=== PATIENT | male | born 1965 | race Caucasian/White ===

== ENCOUNTER 2024-03-17 11:44 | Outpatient (AMB) | payer OTHER, SELFPAY ==
--- OUTSIDE RECORDS SUMMARY | 2024-03-17 11:46 | XMS_ITS ---
Author Name [facility] Organization Unknown History of Medication Use Medication Directions Dispensed Refills Start Date End Date Stat us methocarbamol (ROBAXIN) 500 MG tablet Take 1 tablet (500 mg total) by mouth 3 (three) times a day as needed for muscle spasms (may cause drowsiness). 06/19/2022 aborted OMEprazole (PriLOSEC) 20 MG capsule Take by mouth. 06/19/2022 aborted famotidine (PEPCID) 20 MG tablet Take by mouth. 06/19/2022 aborted meloxicam (MOBIC) 15 MG tablet Take by mouth. 06/19/2022 aborted testosterone (ANDROGEL) 20.25 mg/pump (1.62%) transdermal gel testosterone 20.25 mg/1.25 gram per pump act.(1.62 %) transdermal gel 06/19/2022 aborted rosuvastatin (CRESTOR) 10 MG tablet TAKE 1 TABLET BY MOUTH EVERY DAY 06/19/2022 active methylPREDNISolone (MEDROL DOSEPAK) 4 MG tablet follow package directions 11/28/2022 active valsartan-hydroCHLOROth iazide (DIOVAN-HCT) 160-25 MG per tablet Take 1 tablet by mouth daily. 06/19/2022 active Problems Problem Status Onset Date Problem Type Date of Resolution Source Essential familial hypercholesterolemia active 2022-06-10 ProblemAct [facility] Hypertension active 2022-06-10 ProblemAct [facility] Lumbar pain active 2022-06-10 ProblemAct [facility] Dyspnea active 2022-06-10 ProblemAct [facility] Stiffness of finger joint of left hand active 2022-11-12 ProblemAct [facility] Hyperglycemia active 2022-06-10 ProblemAct [facility] Erectile dysfunction active 2022-06-10 ProblemAct [facility] Dislocation of finger active 2022-11-12 ProblemAct [facility] Other cervical disc degeneration at C4-C5 level active 2018-04-13 ProblemAct [facility] Dislocation of finger, sequela active EncounterDiagnosisAct [facility] Hypogonadism, male active 2022-06-10 ProblemAct [facility] Immunizations Vaccine Date Source Lot Number Status Influenza Inactivated Lai valent Preservative Free IM 03/01/2016 [facility] [id number] completed Influenza Inactivated Lai valent Preservative Free IM 02/06/2021 [facility] [id number] completed Influenza Inactivated Lai valent Preservative Free IM 01/13/2020 [facility] completed Influenza, Unspecified 2012 [facility] co mpleted
--- NOTE | 2024-03-17 12:49 | A.OFFPC_ITS ---
Vital Signs 03/17/24 13:06 Height 5 ft 7 in Weight 178 lb 6 oz BMI 27.9 BP 128/70 Blood Pressure Location Rt brachial Position Sitting Respiration 16 Pulse 93 Pulse Source Pulse Oximeter Pulse Oximetry (%) 99 Oxygen Delivery Method Room Air Intake Visit Reasons: [facility]/ Est Care Intake Note: establish care Allergies Penicillins Allergy (Intermediate, Verified 03/17/24 12:51) Unknown Medication List - Last Reconciled 03/17/24 by Evan Livingston MD rosuvastatin mg PO ONCE valsartan-hydrochlorothiazide 160-25 mg tabs PO DAILY Tobacco use date assessed: 03/17/24 Dental Screening Dental Screen Date: 03/17/24 Did you have a dental visit in the last 12 months?: Yes Did you have a dental problem in the last 6 months where you did not have access to dental care?: No Was dental information given to patient?: Patient has dentist HPI [facility]/ Est [facility] HPI Details New Patient? ?? Prior PCP:?[facility] [place]. Last office visit/CPE:? 2 yrs Acute issue(s):? Abdominal discomfort worst at LLQ & Inguinal region. Some changes in BMs. No bloodin stools. Changes in appetite. Drinks lots of coffee & EtOH. C/o sweating - daytime not night sweats Back pain Has done PT. L 5th finger dislocation & some deformity. ?? PMHx:? Back pain & Disc injury, Low T. HTN, HLD SurgHx:? FHx:? SocHx: Quit cigs 25 yrs ago. EtOH bout 5 dr a day. , [facility] Medical History (Updated 03/17/24 @ 14:09 by Bo Luu) Dislocated finger Testicular pain, left Breathing problem Sciatic leg pain Arthritis Back injury Low testosterone High blood pressure High blood cholesterol Surgical History (Updated 03/17/24 @ 13:01 by Barry Ariza CMA) History of vasectomy History of hernia repair Family History (Updated 03/17/24 @ 13:05 by Barry Ariza CMA) Father High blood pressure High cholesterol Prostate cancer Mother High blood pressure Brother High blood pressure High cholesterol Sister High blood pressure High cholesterol Social History (Updated 03/17/24 @ 13:05 by Barry Ariza CMA) Housing: House Patient Tobacco Use Status: Never used Tobacco e-Cigarette/Vaping Use: Never Used Second Hand Smoke Exposure: No Substance Use Type: Marijuana service: No Current occupational status: retired Current occupational exposures/hazards: No Cognitive needs: No Hearing needs: No Vision needs: Yes Questionnaire PHQ-9 Over the last 2 weeks, how often have you been bothered by any of the following problems? 1. Little interest or pleasure in doing things: several days 2. Feeling down, depressed, or hopeless: not at all 3. Trouble falling or staying asleep, or sleeping too much: more than half the days 4. Feeling tired or having little energy: several days 5. Poor appetite or overeating: more than half the days 6. Feeling bad about yourself - or that you are a failure or have let yourself or your family down: not at all 7. Trouble concentrating on things, such as reading the newspaper or watching television: not at all 8. Moving or speaking so slowly that other people could have noticed. Or the opposite - being so fidgety or restless that you have been moving around a lot more than usual: not at all 9. Thoughts that you would be better off or of hurting yourself in some way: not at all Total score: 6 Depression Screening Interpretation: Positive Depression Screening Done: Yes 72811 - PHQ-9 Billing: Yes Source: Developed by Drs. Ricky Baxter, Mary Jo Ascencio, Griffin Timmons and colleagues, with an educational moe from [employer]. Thrive Questionnaire Date Thrive assessed: 03/17/24 I am a: Patient What is your living situation today?: I have a steady place to live Within the past 12 months, did the food you bought not last and you didn't have the money to get more?: Never true Within the past 12 months, did you worry whether your food would run out before you got money to buy more?: Never true Do you have trouble paying for medicines?: No Do you have trouble getting transportation to medical appointments?: No Do you have trouble paying your heating and electricity bill?: No Do you have trouble taking care of your child, family member or friend?: No Do you have trouble with day-to-day activities such as bathing, preparing meals, shopping, managing finances, etc.?: No Are you currently unemployed and looking for a job?: No Are you interested in more education?: No Please select the resources that you would like help with: None Currently or been in a relationship where the following occur: No concerns reported THRIVE Score: 0 AUDIT C Alcohol Use Questionnaire (AUDIT-C) 1. How often do you have a drink containing alcohol?: 4 or more times a week 2. How many drinks containing alcohol do you have on a typical day when you are drinking?: 5 or 6 3. How often do you have six or more drinks on one occasion?: Weekly Total Score: 9 MARIA L-7 AMB Questionnaire MARIA L-7 Date MARIA L - 7 assessed: 03/17/24 Feeling nervous, anxious, or on edge: 0 = Not at all Not being able to stop or control worryin = Not at all Worrying too much about different things: 1 = Several days Trouble relaxin = Not at all Being so restless that it is hard to sit still: 0 = Not at all Becoming easily annoyed or irritable: 0 = Not at all Feeling afraid as if something awful might happen: 0 = Not at all Total MARIA L-7 score (0-4 normal; 5-9 mild; 10-14 moderate; 15-21 severe): 1 Source: Developed by Drs. Ricky Baxter, Mary Jo Ascencio, Griffin Timmons and colleagues, with an educational moe from [employer]. MARIA L-7 Assessment Billing MARIA L-7 Assessment Tool: MARIA L-7 Assessment 40376 Review of Systems Const Denies chills, Denies fatigue, Denies fever(s), Denies headache(s) and Denies weakness ENT Denies dizziness and Denies headache(s) Card Denies chest pain, Denies lightheadedness, Denies dyspnea and Denies other (Palpitations) Resp Denies cough, Denies dyspnea, Denies wheezing and Denies other ( shortness of breath) Musc Denies numbness and Denies tingling Neuro Denies dizziness, Denies headache(s), Denies numbness, Denies tingling, Denies paresthesias and Denies weakness Psych Denies anxiety and Denies depression Endo Denies fatigue Aller/Immun Denies wheezing Physical exam (Primary Care) Vital Signs: Last Vital Signs Pulse 93 03/17/24 13:06 Resp 16 03/17/24 13:06 BP 128/70 03/17/24 13:06 Pulse Ox 99 03/17/24 13:06 Oxygen Delivery Method Room Air 03/17/24 13:06 BMI result Body Mass Index 27.9 Tobacco/Smoking Status: Tobacco use Status Tobacco use date assessed 03/17/24 03/17/24 13:08 Patient Tobacco Use Status Never used Tobacco 03/17/24 13:08 e-Cigarette/Vaping Use Never Used 03/17/24 13:08 PHQ-9: PHQ-9 Score PHQ-9: Total score 6 03/17/24 13:11 Depression Screening Interpretation: Positive Thrive Assessment: Date of Thrive Assessment Date Thrive assessed 03/17/24 03/17/24 13:08 Currently or been in a relationship where the following occur: No concerns reported Const General: no acute distress and well developed Nutritional Appearance: well nourished Orientation/consciousness: patient oriented x3 HENMT Head: Yes normocephalic and Yes atraumatic Eyes General: appearance normal, both eyes and all related structures Pupils: Equal, round and reactive pupils present EOM: EOMs intact bilaterally Resp Effort & Inspection: normal respiratory effort Auscultation: clear to auscultation bilaterally Cardio Rate: regular rate Rhythm: regular rhythm Heart sounds: S1 normal heart sound present, S2 normal heart sound present, no gallops, no murmurs and no rubs Neuro General: patient oriented x3 and gait normal Cranial nerves: Yes Equal, round and reactive pupils present Psych Affect: normal affect Coding Level of Care Code New Pt Level 4 (35868) Diagnoses Abdominal discomfort R10.9 Back pain M54.9 High blood cholesterol E78.00 High blood pressure I10 Alcohol use F10.90 Excessive sweating R61 Dislocated finger S63.259A Hand pain M79.643 Laboratory exam ordered as part of routine general medical examination Z00.00 Additional Codes MARIA L-7 Assessment Billing - MARIA L-7 Assessment Tool: MARIA L-7 Assessment 02661 ([id number]) PHQ-9 - 93805 - PHQ-9 Billing: Yes ([id number]) Assessment & Plan Assessment & Plan (1) Abdominal discomfort: Code(s): R10.9 - Unspecified abdominal pain Category: Medical Plan: Advised?patient?to?increase?water?intake?and?decrease?alcohol?intake Check?labs He?is?referred?to?Gastroenterology (2) Back pain: Code(s): M54.9 - Dorsalgia, unspecified Category: Medical Plan: Longstanding?back?pain?and?patient?notes?he?has?had?disc?injuries?and?undergone? physical?therapy?in?the?past He?says?he?has?had?imaging?including?MRI?studies?but?not?within?the?l ast?few?years Will?request?prior?records (3) High blood cholesterol: Code(s): E78.00 - Pure hypercholesterolemia, unspecified Category: Medical Plan: Check?labs (4) High blood pressure: Code(s): I10 - Essential (primary) hypertension Category: Medical Plan: Blood?pressure?appears?controlled Continue?current?medication (5) Alcohol use: Code(s): F10.90 - Alcohol use, unspecified, uncomplicated Category: Social Hx Plan: Patient?is?written?about?5?drinks?per?day Encouraged?weaning?cessation Offered?referral?to?comprehensive?Care?Clinic.??Gonzalez l?readdress?this?at?a?subsequent?visit (6) Excessive sweating: Code(s): R61 - Generalized hyperhidrosis Category: Medical Plan: Check?labs?including?thyroid?levels?and?testosterone As?above,?advised?weaning?and?cessation?of?alcohol (7) Dislocated finger: Code(s): S63.259A - Unspecified dislocation of unspecified finger, initial encounter Category: Medical Plan: Patient?has?deviated?finger?and?also?has?complaints?of?painful?palm?or?tendons Will?send?a?script?for?diclofenac?and?advised?heat May?need?imaging?referral?to?his?specialist??if?it?continues?to?worsen (8) Hand pain: Code(s): M79.643 - Pain in unspecified hand Category: Medical Plan: Appears?to?have?contractures?of?tendons Ice?heat?and?diclofenac?gel May?need?referral?imaging (9) Laboratory exam ordered as part of routine general medical examination: Code(s): Z00.00 - Encounter for general adult medical examination without abnormal findings Category: Medical Plan: Check?labs Orders: Orders Comprehensive [place]. Panel Fast Today Z00.00 - Encounter for general adult medical examination without abnormal findings Lipid Panel Today Z00.00 - Encounter for general adult medical examination without abnormal findings TSH reflex Free T4 Today Z00.00 - Encounter for general adult medical examination without abnormal findings UA and rflx microscopic Today Z00.00 - Encounter for general adult medical examination without abnormal findings Testosterone, Free/Total Today F10.90 - Alcohol use, unspecified, uncomplicated, Z00.00 - Encounter for general adult medical examination without abnormal findings Erythrocyte Sedimentation Rate Today M54.9 - Dorsalgia, unspecified Complete Blood Count Auto Diff Today Z00.00 - Encounter for general adult medical examination without abnormal findings Microalbumin, Random (w Creat) Today I10 - Essential (primary) hypertension Prostate Specific Antigen Scr Today Z12.5 - Encounter for screening for malignant neoplasm of prostate Vitamin B12 and Folate Today E53.8 - Deficiency of other specified B group vitamins CRP High Sensitivity Today M54.9 - Dorsalgia, unspecified T Spot TB Today R61 - Generalized hyperhidrosis Referrals Gastroenterology Referral R10.9 - Unspecified abdominal pain, Z12.11 - Encounter for screening for malignant neoplasm of colon Medications: New diclofenac sodium 1% (Aleve (diclofenac)) apply to single elbow, wrist or hand; for hand includes palm/fingers/back of hand 2 grams topical BID 60 days 100 grams 2RF
[2024-03-17 13:06] VITALS: BP 128/70; PULSE 93; RESP 16; O2SAT 99; BMI 27.9
== END 2024-03-17 14:09 | disposition home or self-care (01) ==
PROVIDERS: PCP Family Medicine; Visit Provider Family Medicine
DX: R10.9 Unspecified abdominal pain (principal); M54.9 Dorsalgia, unspecified; E78.00 Pure hypercholesterolemia, unspecified; I10 Essential (primary) hypertension; F10.90 Alcohol use, unspecified, uncomplicated; R61 Generalized hyperhidrosis; S63.259A Unspecified dislocation of unspecified finger, initial encounter; M79.643 Pain in unspecified hand; Z00.00 Encounter for general adult medical examination without abnormal findings

== ENCOUNTER → 2024-03-17 11:44 | Outpatient (BNVA) | payer OTHER, SELFPAY | PROVIDERS: Visit Provider Family Medicine | DX: R10.9 Unspecified abdominal pain (principal); M54.9 Dorsalgia, unspecified; E78.00 Pure hypercholesterolemia, unspecified; I10 Essential (primary) hypertension; F10.90 Alcohol use, unspecified, uncomplicated; R61 Generalized hyperhidrosis; S63.257A Unspecified dislocation of left little finger, initial encounter; M79.643 Pain in unspecified hand | CPT/HCPCS: 96127 ==

== ENCOUNTER 2024-04-02 08:06 | Outpatient (REF) | payer OTHER, SELFPAY ==
[2024-04-02 10:58] LABS: MANUAL DIFF FLAG NO
[2024-04-02 11:09] LABS: Basophils Absolute Auto 0.1 X10*3/uL (0.0-0.2); Basophils Percent Auto 0.7 % (0-2); Eosinophils Absolute Auto 0.1 X10*3/uL (0.0-0.4); Eosinophils Percent Auto 1.3 % (0-4); Hematocrit 42.6 % (42.0-52.0); Hemoglobin 14.6 g/dl (14.0-18.0); Imm Gran Abs Auto 0.09 X10*3/uL (0.00-0.03); Imm Gran Pct Auto 1.2 % (0.0-0.4); Lymphocytes Absolute Auto 1.4 X10*3/uL (1.2-4.9); Lymphocytes Percent Auto 19.1 % (20-40); Mean Corpuscular HGB Conc 34.3 g/dl (31.0-36.0); Mean Corpuscular Hemoglobin 32.4 pg (27.0-33.0); Mean Corpuscular Volume 94.5 fL (80.0-98.0); Mean Platelet Volume 9.8 fL (9.4-12.4); Monocytes Absolute Auto 0.5 X10*3/uL (0.1-1.2); Monocytes Percent Auto 6.1 % (2-11); Neutrophils Absolute Auto 5.4 x10*3/uL (2.0-8.3); Neutrophils Percent Auto 71.6 % (45-73); Platelet Count 274 X10*3/uL (160-400); Red Blood Count 4.51 X10*6/uL (4.60-5.80); White Blood Count 7.5 X10*3/uL (4.8-10.8)
[2024-04-02 11:13] LABS: Appearance Urine Clear; Color Urine Yellow; Glucose Urine UA Negative (Negative); Leukocyte Esterase Urine Negative (Negative); Nitrite Urine Negative (Negative); PH >= 9.0 (5.0-9.0); Urine Blood Negative (Negative); Urine Ketones Negative (Negative); Urine Protein Trace mg/dL (Neg-Trace)
[2024-04-02 11:47] LABS: Alanine Aminotransferase 21 U/L (0-40); Albumin Level 4.4 g/dL (3.5-5.0); Alkaline Phosphatase 66 U/L (39-117); Anion Gap 12 (12-20); Aspartate Amino Transferase 26 U/L (5-37); Bilirubin Total 0.4 mg/dL (0.0-1.0); Blood Urea Nitrogen 8 mg/dL (9-16); Carbon Dioxide 29 mmol/L (22-29); Chloride 102 mmol/L (96-108); Cholesterol 237 mg/dL (<200); Estimated Glomerular Filt Rate > 60; Glucose Fasting 99 mg/dL (60-99); HDL Cholesterol 42 mg/dL (>40); LDL Cholesterol Calculated 135 mg/dL (<100); Potassium 4.1 mmol/L (3.3-5.1); Sodium 139 mmol/L (135-145); Total Protein 7.1 g/dL (6.5-8.0); Triglycerides 301 mg/dL (<150)
[2024-04-02 11:52] LABS: Erythrocyte Sedimentation Rate 10 MM/HR (0-15)
[2024-04-02 11:53] LABS: Creatinine Urine 165.23 mg/dL; Microalbum/Creatinine Ratio Ur 4.8 ug/mg cr (<30)
[2024-04-02 11:57] LABS: TSH reflex Free T4 1.88 uIU/mL (0.32-4.0)
[2024-04-02 11:59] LABS: Folate 9.9 ng/mL (> or = 4.0); Prostate Specific Antigen Scr 1.09 ng/mL (<0.05-4.0); Vitamin B12 234 pg/mL (200-900)
[2024-04-05 23:28] LABS: TS Negative Control Passed; TS Panel A 0; TS Panel B 0; TS Positive Control Passed; TSpotTB Negative (Negative)
[2024-04-08 17:14] LABS: Testosterone, Free 72.1 pg/mL (35.0-155.0); Testosterone, Total 519 ng/dL (250-1100)
== END 2024-04-02 08:07 | disposition home or self-care (01) ==
LOC: HO.WFDLDS 08:06
PROVIDERS: Visit Provider Family Medicine
DX: Z00.00 Encounter for general adult medical examination without abnormal findings (principal); M54.9 Dorsalgia, unspecified; Z12.5 Encounter for screening for malignant neoplasm of prostate; E53.8 Deficiency of other specified B group vitamins; F10.90 Alcohol use, unspecified, uncomplicated; R61 Generalized hyperhidrosis; I10 Essential (primary) hypertension
CPT/HCPCS: 36415; 80053; 80061; 81003; 82043; 82570; 82607; 82746; 84153; 84402; 84403; 84443; 85025; 85652; 86141; 86481

== ENCOUNTER 2024-05-25 11:52 | Outpatient (AMB) | payer OTHER, SELFPAY ==
--- NOTE | 2024-05-25 12:37 | A.OFFPC_ITS ---
Vital Signs 05/25/24 12:44 Height 5 ft 7 in Weight 178 lb 8 oz BMI 28.0 BP 148/86 H Blood Pressure Location Rt brachial Position Sitting Respiration 16 Pulse 102 H Pulse Source Pulse Oximeter Temp 98.5 F Temp Source Oral Pulse Oximetry (%) 99 Oxygen Delivery Method Room Air Intake Visit Reasons: cpe fu lab and health maintenance Intake Note: CPE Allergies Penicillins Allergy (Intermediate, Verified 05/25/24 12:44) Unknown Medication List - Last Reconciled 05/25/24 by Evan Livignston MD diclofenac sodium 1% (Aleve (diclofenac)) 2 grams topical BID 60 days rosuvastatin mg PO ONCE valsartan-hydrochlorothiazide 160-25 mg tabs PO DAILY Tobacco use date assessed: 05/25/24 Dental Screening Dental Screen Date: 03/17/24 Did you have a dental visit in the last 12 months?: Yes Did you have a dental problem in the last 6 months where you did not have access to dental care?: No Was dental information given to patient?: No HPI cpe fu lab and health maintenance HPI Details 59 y/o male presents for a CPE with f/u labs and health maintenance. Labs drawn 04/02/24. Reviewed labs with pt. RBC mildly low at 4.51. Triglycerides 301. TC 237. LDL 135. HDL 42. PSA 1.09. Blood pressure today 148/86, 102p. He is on valsartan-HCTZ 160-25mg daily. Reports ongoing back pain. Has had numerous MRIs/physical therapy. Reports ongoing abd. discomfort. HPI Comments History of Present Illness Details Documentation assistance for Evan Livingsotn MD, was provided by Bo Luu, Human Relations Manager on 05/25/2024 at 1:03 PM EST. I, Dr. Livingston, have read, observed, and verified documentation. [facility] Medical History (Updated 05/25/24 @ 13:30 by Evan Livingston MD) Dislocated finger Testicular pain, left Breathing problem Sciatic leg pain Arthritis Back injury Low testosterone High blood pressure High blood cholesterol Surgical History (Updated 03/17/24 @ 13:01 by Barry Ariza CMA) History of vasectomy History of hernia repair Family History (Updated 03/17/24 @ 13:05 by Barry Ariza CMA) Father High blood pressure High cholesterol Prostate cancer Mother High blood pressure Brother High blood pressure High cholesterol Sister High blood pressure High cholesterol Social History (Updated 03/17/24 @ 13:05 by Barry Ariza [facility]) Housing: House Patient Tobacco Use Status: Never used Tobacco e-Cigarette/Vaping Use: Never Used Second Hand Smoke Exposure: No Substance Use Type: Marijuana service: No Current occupational status: retired Current occupational exposures/hazards: No Cognitive needs: No Hearing needs: No Vision needs: Yes Questionnaire PHQ-9 Over the last 2 weeks, how often have you been bothered by any of the following problems? 1. Little interest or pleasure in doing things: not at all 2. Feeling down, depressed, or hopeless: not at all 3. Trouble falling or staying asleep, or sleeping too much: more than half the days 4. Feeling tired or having little energy: more than half the days 5. Poor appetite or overeating: nearly every day 6. Feeling bad about yourself - or that you are a failure or have let yourself or your family down: not at all 7. Trouble concentrating on things, such as reading the newspaper or watching television: not at all 8. Moving or speaking so slowly that other people could have noticed. Or the opposite - being so fidgety or restless that you have been moving around a lot more than usual: not at all 9. Thoughts that you would be better off or of hurting yourself in some way: not at all Total score: 7 Depression Screening Interpretation: Positive Depression Screening Done: Yes 59177 - PHQ-9 Billing: Yes Source: Developed by Drs. Ricky Baxter, Mary Jo Ascencio, Griffin Timmons and colleagues, with an educational moe from [employer]. Thrive Questionnaire Date Thrive assessed: 05/25/24 I am a: Patient What is your living situation today?: I have a steady place to live Within the past 12 months, did the food you bought not last and you didn't have the money to get more?: Never true Within the past 12 months, did you worry whether your food would run out before you got money to buy more?: Never true Do you have trouble paying for medicines?: No Do you have trouble getting transportation to medical appointments?: No Do you have trouble paying your heating and electricity bill?: No Do you have trouble taking care of your child, family member or friend?: No Do you have trouble with day-to-day activities such as bathing, preparing meals, shopping, managing finances, etc.?: No Are you currently unemployed and looking for a job?: No Are you interested in more education?: No Please select the resources that you would like help with: None Currently or been in a relationship where the following occur: No concerns reported THRIVE Score: 0 AUDIT C Alcohol Use Questionnaire (AUDIT-C) 1. How often do you have a drink containing alcohol?: 4 or more times a week 2. How many drinks containing alcohol do you have on a typical day when you are drinking?: 3 or 4 3. How often do you have six or more drinks on one occasion?: Weekly Total Score: 8 Score Reviewed/Action Taken: Yes MARIA L-7 AMB Questionnaire MARIA L-7 Date MARIA L - 7 assessed: 05/25/24 Feeling nervous, anxious, or on edge: 0 = Not at all Not being able to stop or control worryin = Not at all Worrying too much about different things: 0 = Not at all Trouble relaxin = Not at all Being so restless that it is hard to sit still: 0 = Not at all Becoming easily annoyed or irritable: 0 = Not at all Feeling afraid as if something awful might happen: 0 = Not at all Total MARIA L-7 score (0-4 normal; 5-9 mild; 10-14 moderate; 15-21 severe): 0 Source: Developed by Drs. Ricky Baxter, Mary Jo Ascencio, Griffin Timmons and colleagues, with an educational moe from [employer]. MARIA L-7 Assessment Billing MARIA L-7 Assessment Tool: MARIA L-7 Assessment 79464 Review of Systems Const Denies chills, Denies fatigue, Denies fever(s), Denies headache(s) and Denies weakness Eyes Denies change in vision ENT Denies dizziness, Denies headache(s), Denies hearing loss, Denies nasal congestion, Denies sinus pain, Denies sinus pressure and Denies sore throat Card Denies chest pain, Denies lightheadedness, Denies dyspnea and Denies other (palpitations) Resp Denies cough, Denies dyspnea and Denies wheezing GI Reports abdominal pain, Denies melena, Denies hematochezia, Denies change in bowel habits, Denies dyspepsia and Denies nausea Denies hematuria and Denies dysuria Musc Denies abnormal gait, Denies myalgias, Denies arthralgias, Denies numbness and Denies tingling Skin/Breast Denies rash, Denies unusual bruising and Denies wounds Neuro Denies abnormal gait, Denies dizziness, Denies headache(s), Denies memory loss, Denies numbness, Denies Sensory deficit (Neuro), Denies tingling and Denies weakness Psych Denies anxiety, Denies depression and Denies memory loss Endo Denies cold intolerance, Denies fatigue, Denies heat intolerance, Denies polydipsia and Denies polyuria Raffy/Lymph Denies easy bleeding and Denies easy bruising Aller/Immun Denies wheezing Physical exam (Primary Care) Vital Signs: Last Vital Signs Temp 98.5 F 05/25/24 12:44 Pulse 102 H 05/25/24 12:44 Resp 16 05/25/24 12:44 BP 148/86 H 05/25/24 12:44 Pulse Ox 99 05/25/24 12:44 Oxygen Delivery Method Room Air 05/25/24 12:44 BMI result Body Mass Index 28.0 Tobacco/Smoking Status: Tobacco use Status Tobacco use date assessed 05/25/24 05/25/24 12:45 Patient Tobacco Use Status Never used Tobacco 05/25/24 12:41 e-Cigarette/Vaping Use Never Used 05/25/24 12:41 PHQ-9: PHQ-9 Score PHQ-9: Total score 7 05/25/24 12:41 Depression Screening Interpretation: Positive Thrive Assessment: Date of Thrive Assessment Date Thrive assessed 05/25/24 05/25/24 12:41 Currently or been in a relationship where the following occur: No concerns reported Const General: no acute distress, well developed, alert and awake Nutritional Appearance: well nourished Orientation/consciousness: patient oriented x3 HENMT Head: Yes normocephalic and Yes atraumatic Ears: hearing grossly normal bilaterally and TM's normal bilaterally General nose exam: Normal external nose present and Normal nares present Mouth: Normal oral and palatal mucosa present and moist mucous membranes Teeth and gingiva: dentition normal Throat: Yes posterior oropharynx normal Eyes General: appearance normal, both eyes and all related structures Pupils: Equal, round and reactive pupils present and Pupil accommodation reflex normal EOM: EOMs intact bilaterally Neck Neck: Yes normal visual inspection, Yes no lymphadenopathy and Yes trachea midline Thyroid: Thyroid normal Carotids: no bruits Lymphatic: no lymphadenopathy noted Chest Chest palpation & inspection: normal inspection of the chest Resp Effort & Inspection: normal respiratory effort Auscultation: clear to auscultation bilaterally Cardio Rate: regular rate Rhythm: regular rhythm Heart sounds: S1 normal heart sound present, S2 normal heart sound present, no gallops, no murmurs and no rubs Bruits: no abdominal aortic bruits and no carotid bruits GI Palpation (GI): No Abdominal aortic bruit present, Soft to palpation, nontender, No hepatosplenomegaly present and No Rebound tenderness present Auscultation: normal bowel sounds General: Yes no CVA tenderness Back/Spine/Pelvis Back: no CVA tenderness Cervical Spine: cervical ROM normal and No Cervical spine tenderness Thoracic/Lumbar Spine: thoraco-lumbar ROM normal, No pain with thoraco-lumbar ROM, No thoracic spinal tenderness and No lumbar spinal tenderness Skin Lesions: no lesions Rashes: no rashes Trauma: no lacerations or abrasions Wounds: no wounds Nails: normal Neuro General: patient oriented x3 Cranial nerves: Yes Equal, round and reactive pupils present Cognition (Neuro): normal cognition Gait exam (Neuro): Normal gait present Motor exam (neuro): 5/5 motor strength present throughout Sensory Exam: No Sensory deficit (Neuro) Deep tendon reflexes (DTR's): Right patellar reflex intensity grade: 2+ and Left patellar reflex intensity grade: 2+ Extrem General: Yes normal to inspection and No edema Psych Appearance: grossly normal Affect: normal affect Attitude: cooperative Thought process: Normal thought process present Coding Level of Care Code Est Pt Level 3 (50826) Est Pt Prev Care 40-64y(09915) Diagnoses Adult general medical exam Z00.00 Hyperlipidemia E78.5 High blood pressure I10 Back pain M54.9 Tachycardia R00.0 Abdominal discomfort R10.9 Screening for prostate cancer Z12.5 Screening for colon cancer Z12.11 Additional Codes MARIA L-7 Assessment Billing - MARIA L-7 Assessment Tool: MARIA L-7 Assessment 12666 ([id number]) PHQ-9 - 77816 - PHQ-9 Billing: Yes ([id number]) Assessment & Plan Assessment & Plan (1) Adult general medical exam: Code(s): Z00.00 - Encounter for general adult medical examination without abnormal findings Category: Medical Plan: 59-year-old?male?presents?for?complete?physical?exam Encouraged?healthy?diet?with?active?lifestyle?and?plenty?exercise (2) Hyperlipidemia: Code(s): E78.5 - Hyperlipidemia, unspecified Category: Medical Plan: Triglycerides?and?LDL?cholesterol?are?too?high. 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 Will?have?him?work?on?diet?low?in?saturated?fats?and?cholesterol and?repeat?labs?prior?to?next?visit. If?labs?are?still?significantly?elevated,?will?get?him?back?rosuvastatin. (3) High blood pressure: Code(s): I10 - Essential (primary) hypertension Category: Medical Plan: Blood?pressure?is?elevated?today.??Goal?is?less?than?140/90 Blood?pressure?was?controlled?at?prior?visits?about?2?months?ago. Continue?current?medications. Watch?salt/sodium Regular?exercise If?blood?pressure?is?still?elevated?at?next?visit,?will?adjust?his?medications (4) Back pain: Code(s): M54.9 - Dorsalgia, unspecified Category: Medical Plan: Ongoing?back?pain. Patient?has?had?numerous?MRIs?and?physical?therapy Will?refer?him?to?physiatry (5) Tachycardia: Code(s): R00.0 - Tachycardia, unspecified Category: Medical Plan: Mild?tachycardia?and?mildly?elevated?blood?pressure. As?we? discussed?at?last?visit,?patient?does?not?drink?much?water?and?is?working?on?thi s. EKG: ?Normal?sinus?rhythm?with?sinus?arrhythmia.??Eighty?b.p.m.,?normal?axis,?no?hype rtrophy,?no?ST-T-wave?changes. Heart?rate?is?elevated?when?upright; likely?mildly?orthostatic. Increase?water?intake. (6) Abdominal discomfort: Code(s): R10.9 - Unspecified abdominal pain Category: Medical Plan: Still?has?ongoing?abdominal?discomfort. Now?has?appointment?with?Gastroenterology Still?working?on?increasing?water?intake?and?I?encouraged?this?again.??Also?enco uraged?weaning?and?cessation?of?alcohol?use We?discussed?soluble?fiber?supplement Follow-up?with?GI (7) Screening for prostate cancer: Code(s): Z12.5 - Encounter for screening for malignant neoplasm of prostate Category: Medical Plan: PSA?was?within?normal?limits Will?continue?annual?screening (8) Screening for colon cancer: Code(s): Z12.11 - Encounter for screening for malignant neoplasm of colon Category: Medical Plan: Patient?has?appointment?with?Gastroenterology Orders: Orders AMB EKG-In Office Today R00.0 - Tachycardia, unspecified Lipid Panel Today E78.5 - Hyperlipidemia, unspecified, Z00.00 - Encounter for general adult medical examination without abnormal findings Comprehensive [place]. Panel Fast Today E78.5 - Hyperlipidemia, unspecified, Z00.00 - Encounter for general adult medical examination without abnormal findin gs
[2024-05-25 12:44] VITALS: BP 148/86; PULSE 102; RESP 16; TEMP 36.9; O2SAT 99; BMI 28.0
--- OUTSIDE RECORDS SUMMARY | 2024-05-25 14:32 | XMS_ITS | Encounter Summary ---
Author Organization [facility] Address [address] [place] [address] Care Team Providers Care Tracer Bullet Section Supervisor Name Role Phone Supriya Asif Primary Care Provider [phone] Reason for Visit * Reason Comments Medication Refill Encounter Details Date Type Department Care Team ([facility] st Contact Info) Description 05/20/2024 Refill [facility] Department of Internal Medicine [place] [address] [place] [address] Supriya Asif PA [address] [place] [id number] Pure hypercholesterolemia Social History Tobacco Use Types Packs/Day Years Used Date Smoking Tobacco: Former Cigarettes 1 13 Smokeless Tobacco: Never Alcohol Use Standard Drinks/Week Comments Yes 21 (1 standard drink = 0.6 oz pu re alcohol) Sex and Gender Information Value Date Recorded Sex Assigned at Not on file Gender Identity Not on file Sexual Orientation Not on file documented as of this encounter Miscellaneous Notes * Telephone Encounter - Delmy Villaseñor LPN - 05/20/2024 10:16 AM EST Patient is missing a follow up appointment OR needs appropriate labs for prescription renewal. documented in this encounter Plan of Treatment Not on file documented as of this encounter Visit Diagnoses Diagnosis Pure hypercholesterolemia documented in this encounter Care Teams Tracer Bullet Section Supervisor Relationship Specialty Start Date End Date Supriya Asif PA [address] [place] [phone] PCP - General documented as of this encounter
--- OUTSIDE RECORDS SUMMARY | 2024-05-25 14:32 | XMS_ITS | Clinical Summary ---
Author Organization [facility] Address [address] [place] [address] Care Team Providers Care Sweeper Brush Maker Machine Name Role Phone Renzo Yeh MD Primary Care Provider Unavail able Immunizations Name Administration Dates Next Due Covid-19 (Pfizer) Dilution Required 07/14/2020,0 06/23/2020 Social History Tobacco Use Types Packs/Day Years Used Date Smoking Tobacco: Never Assessed Sex and Gender Information Value Date Recorded Sex Assigned at Male 04/11/2020 6:19 AM EST Gender Identity Not on file Sexual Orientation Not on file Job Start Date Occupation Industry Not on file Not on file Not on file Plan of Treatment Health Maintenance Due Date Last Done Comments Hepatitis B Vaccines (1 of 3 - 3-dose series) 1966 Hepatitis C Screening 1966 Depression Screening 1978 Preventative Health Evaluation 01/13/1984 DTap / Tdap / Td (1 - Tdap) 1985 Colon Cancer Screening (Colonoscopy) 2011 Shingrix-Zoster Vaccine (1 o f 2) 01/13/2016 COVID-19 Vaccine (2023-2 5 season) 2023 07/14/2020, 06/23/2020 Influenza Vaccine (#1) 2023 Pneumococcal Vaccine Aged Out No long er eligible based on patient's age to complete this topic RSV Ped < 20 months Aged Out No longe r eligible based on patient's age to complete this topic Care Teams Sweeper Brush Maker Machine Relationship Specialty Start Date End Date Renzo Yeh MD PCP - General Internal Medicine 07/11/17
--- OUTSIDE RECORDS SUMMARY | 2024-05-25 14:32 | XMS_ITS | Clinical Summary ---
Author Organization [facility] Address [address] [place] [address] Care Team Providers Care Fish Packer Name Role Phone Demarcus Aden MD Primary Care Provider [phone] Allergies Active Allergy Reactions Criticality Noted Date Comments Penicillins 08/18/2020 Medications Omeprazole (PriLOSEC OTC) 20 MG EC tablet Take 1 tablet 30-60 minutes before breakfast 30 3 1 Active famotidine (Famotidine Maximum Strength) 20 MG tablet TAKE 1 TABLET DAILY DIRECTED. 30 3 1 Active Active Problems Problem Noted Date Diagnosed Date Dyspnea 08/21/2020 Overview (05/04/2023): Impression - [id number]: - Head and neck exam including laryngoscopy essentially unremarkable with exception of signs of LPR. No paradoxical vocal fold motion noted on exam. I have a low suspicion of PVFMD as the source of his dyspnea. We did discuss that LPR can exacerbate underlying asthma/pulmonary issues.; - See LPR plan; - Recommended he gulkana back to his PCP if he has not had recent EKG/cardiac work-up since onset of his symptoms. Impression - [id number]: - Head and neck exam including laryngoscopy essentially unremarkable with exception of signs of LPR. No paradoxical vocal fold motion noted on exam. I have a low suspicion of PVFMD as the source of his dyspnea given his symptom profile. We did discuss that LPR can exacerbate underlying asthma/pulmonary issues.; - See LPR plan; - Recommended he gulkana back to his PCP if he has not had recent EKG/cardiac work-up since onset of his symptoms. Laryngopharyngeal reflux 08/18/2020 Overview (05/04/2023): Impression - [id number]: - I had an extensive discussion with the patient regarding their laryngeal examination and findings which are suggestive of laryngopharyngeal reflux. We discussed lifestyle modifications including dietary changes, weight loss and medical management. Patient provided with handout.; - Trial of Omeprazole 20 mg once daily and Famotidine 20 mg at bedtime to see if this improves his breathing symptoms. Impression - [id number]: - I had an extensive discussion with the patient regarding their laryngeal examination and findings which are suggestive of laryngopharyngeal reflux. We discussed lifestyle modifications including dietary changes, weight loss and medical management. Patient provided with handout.; - Trial of Omeprazole 20 mg once daily and Famotidine 20 mg at bedtime to see if this improves his breathing symptoms.; - Follow-up in 3-4 months, sooner as needed. Family History Medical History Relation Name Comments Cancer - Prostate Father malignant neoplasm of prostate : Father Hypertension Father hypertension : Father Thyroid Disorder Mother thyroid dis ease : Mother, Sibling Thyroid Disorder Sibling thyroid dis ease : Mother, Sibling Relation Name Status Comments Father Mother Sibling Social History Tobacco Use Types Packs/Day Years Used Date Smoking Tobacco: Never Assessed Comments:Smoking Status:Form er tobacco use Sex and Gender Information Value Date Recorded Sex Assigned at Not on file Legal Sex Male 6:37 PM EDT Gender Identity Not on file Sexual Orientation Not on file Plan of Treatment Health Maintenance Due Date Last Done Comments Hepatitis C Screening 1966 DTaP/Tdap/Td (1 - Tdap) 01/13/1984 Hep B (1 of 3 - 19+ 3-dose series) 1985 Colon Cancer Screening 2011 Pneumococcal 50+ years (1 of 1 - PCV) 01/13/2016 Zoster (Shingrix) (1 of 2) 01/13/2016 COVID-19 Vaccine ( - 2023-2 5 season) 2023 Influenza (#1) 2023 HPV Vaccine Aged Out No longer eligi ble based on patient's age to complete this topic Hep A Aged Out No longer eligi ble based on patient's age to complete this topic Hib Aged Out No longer eligi ble based on patient's age to complete this topic Meningococcal ACWY Aged Out No longer eligible based on patient's age to complete this topic Care Teams Fish Packer Relationship Specialty Start Date End Date Demarcus Aden MD [address] [place] [address] PCP - General 11/04/22
--- OUTSIDE RECORDS SUMMARY | 2024-05-25 14:32 | XMS_ITS | Encounter Summary ---
Author Organization [facility] Address [address] [place] [address] Care Team Providers Care Quick Mixer Operator Name Role Phone Supriya Asif Primary Care Provider [phone] Encounter Details Date Type Department Care Team (Late st Contact Info) Description 04/19/2019 Scanned Document [facility] NEUROSURGERY SCAN Neurosurgery, Scan Social History Tobacco Use Types Packs/Day Years Used Date Smoking Tobacco: Never Assessed Sex and Gender Information Value Date Recorded Sex Assigned at Not on file Gender Identity Not on file Sexual Orientation Not on file documented as of this encounter Plan of Treatment Not on file documented as of this encounter Visit Diagnoses Not on filedocumented in this encounter Care Teams Quick Mixer Operator Relationship Specialty Start Date End Date Supriya Asif PA [address] [place] [id number] PCP - General documented as of this encounter
--- OUTSIDE RECORDS SUMMARY | 2024-05-25 14:32 | XMS_ITS | Clinical Summary ---
Author Organization [facility] [place] [address] Care Team Providers Care Leather Goods Assembler Name Role Phone Renzo Yeh MD Primary Care Provider [phone] Social History Tobacco Use Types Packs/Day Years Used Date Smoking Tobacco: Never Assessed Sex and Gender Information Value Date Recorded Sex Assigned at Not on file Legal Sex Male 10:43 AM EST Gender Identity Not on file Sexual Orientation Not on file Plan of Treatment Health Maintenance Due Date Last Done Comments DTaP,Tdap,and Td Vaccines (1 - Tdap) 1985 Hepatitis B Vaccines (1 of 3 - 19+ 3-dose series) 1985 Pneumococcal Vaccine: 50+ Years (1 of 1 - PCV) 01/13/2016 Zoster Vaccines (1 of 2) 01/13/2016 COVID-19 Vaccine (3 - 2023-2 5 season) 2023 07/14/2020, 06/23/2020 Influenza Vaccine (#1) 2023 HIB Vaccines Aged Out No longer eligi ble based on patient's age to complete this topic HPV Vaccines Aged Out No longer eligi ble based on patient's age to complete this topic Hepatitis A Vaccines Aged Out No long er eligible based on patient's age to complete this topic IPV Vaccines Aged Out No longer eligi ble based on patient's age to complete this topic MMR Vaccines Aged Out No longer eligi ble based on patient's age to complete this topic Meningococcal ACWY Vaccine Aged Out N o longer eligible based on patient's age to complete this topic Meningococcal B Vacine Aged Out No lo nger eligible based on patient's age to complete this topic Pneumococcal Vaccine: Pediatrics (0 to 5 Years) and At-Risk Patients (6 to 64 Years) Aged Out No longer eligible b ased on patient's age to complete this topic RSV Immunization Patients Under 20 months Aged Out No longer eligible b ased on patient's age to complete this topic Varicella Vaccines Aged Out No longer eligible based on patient's age to complete this topic Care Teams Leather Goods Assembler Relationship Specialty Start Date End Date Renzo Yeh MD [address] [id number] PCP - General Internal Medicine 07/11/17
--- OUTSIDE RECORDS SUMMARY | 2024-05-25 14:32 | XMS_ITS | Data Portability ---
Author Organization [place] [facility], Main Office Address [address] [place] [address] Care Team Providers Care Micro Computer Specialist Name Role Phone BARRY VIRGENAH Primary Care Provider Assessment No assessment recorded. Plan of Treatment Reminders Order Date Submit Date Provider Last Modified By Organization Details Last Modified Time Details Appointments None recorded. Lab None recorded. Referral physical therapist referral 2018 019 [email or web address] Not available 9 16:44:10 Procedures None recorded. Surgeries None recorded. Imaging None recorded. Medication Orders None recorded. Patient TargetsNo targets recorded. Patient Instructions Encounter Date Encounter Id Patient Instructions Last Modified By Organization Details Last Modified Time 04/13/2018 [id number] Zay is here f or neurosurgical evaluation of his mid thoracic and lower back pains. He reports that his had issues with his upper and lower back for years however this lower back issues which flared up over the last 2 months. He does not report any falls, trauma, instigating event. He does report that his pain worsens when he is bending and lifting. He does feel that anti-inflammatorie s help calm down his pain. He denies any upper extremity or lower extremity issues. He is not taking any pain medication, muscle relaxant, neuropathic agent. He has not undergone any injection therapy or spine surgeries. He has not undergone any recent physical therapy, skin care specialist or acupuncture. He has taken [id number] anti-inflammatorie s with some improvement. On examination he has pain with range of motion of the neck most noted with lateral bending and extension. Upper extremity strength, sensation, reflexes are normal. He ambulates with a normal gait. He is able walk on his toes and heels. Lower extremity strength, sensation, reflexes are normal. He does have some tenderness to palpation in the lower thoracic spine and lower lumbar spine. Patient has a MRI of the cervical spine which does reveal degenerative changes at C5-6-7. He also has thoracic and lumbar x-rays which reveal degenerative disc disease at T8-9 and L2-3 and L5-S1 level. I have asked him to undergo a short course of physical therapy and then follow up with us. He does not have any clear radicular symptoms at this time. [email or web address] Not available 04/14/2018 15:33:07 Reason for Referral Physical Therapist Referral for Degeneration of lumbar intervertebral disc Referring Physician: Manny Hernandez, Physician Technology Analyst, Encounter Date: 04/13/2018 Problems Name Problem SNOMED Code Status Onset Date Resolution Date Notes Provider Name and Address Organization Details Recorded Time Degeneration of lumbar intervertebra l disc 87006333 Active 2018 Manny Hernandez PA-C [address], [place], [address], [place] [facility] 9 16:43:41 Degeneration of cervical intervertebra l disc 92006685 Active 2018 Manny Hernandez PA-C [address], [place], [address], [place] [facility] 9 16:43:42 Degeneration of thoracic intervertebra l disc 62671408 Active 2018 Manny Hernandez PA-C [address], [place], [address], [place] [facility] 9 16:43:43 Problem Notes None recorded. Medical Equipment None Reported. Allergies Allergen ID Allergen Name Allergen Category Reaction Reaction Severity Criticality Documentation Date Start Date Code Code System Note Provider Name and Address Organization Details Recorded Time 4326 Product containin g penicilli n (product) medicatio n Not available Not available Not available 04/13/2018 37836 8001 SNOMED Rebecca Max [facility], [place] [facility] 9 15:20:03 Medications Name Sig Start Date Stop Date Status Note LastModified by Organization Details LastModified Time lisinopril 20 mg-hydrochloro thiazide 25 mg tablet active Not Available Not Available Not Available testosterone 20.25 mg/1.25 gram per pump act.(1.62 %) transdermal gel active Not Available Not Available Not Available Vitals Date Recorded Body height Body temperature Body mass index (BMI) Body weight Provider Name and Address Organization Details Last Updated DateTime 04/13/2018 171.45 cm 98.2 [degF] 27 kg/m2 00666.66 g Rebecca Max [facility] 04/13/2018 16:03:29 Social History Question Answer Notes LastModified by Organizat ion Details LastModified Time Tobacco Smoking Status Former Smoker Rebecca Max [place], [facility] 04/13/2018 15:25:02 What Is Your Level Of Alcohol Consumption? Moderate [email or web address] Information not available 04/13/2018 What Is Your Level Of Caffeine Consumption? 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 04/13/2018 Information not available 10/21/2018 Sex: Male Functional Status None recorded. Mental Status None recorded. Family History Relationship Description Onset Age of this Age Resolved Age Notes LastModified by Organization Details LastModified Time Father Hypertensive disorder [email or web address] Not available 04/13 15:24:22 Father Hypercholest erolemia [email or web address] Not available 04/13 15:24:34 Mother Disorder of thyroid gland [email or web address] Not available 04/13 15:24:54 Sister Disorder of thyroid gland [email or web address] Not available 04/13 15:24:54 Medical History Condition Response Coronary Artery Disease N Anxiety/Depression N Other N Parkinson's Disease N MRSA N Head Trauma/Injury N Brain Tumors N Anemia N PTSD N Multiple Sclerosis N Meningitis N Spine/Back Problems Y Heart Attack (DC) N Neurological Problems N Anxiety Disorder N Diabetes N Bleeding Disorder N Arthritis N Tuberculosis N Cerebral Palsy N AIDS/HIV N Cancer N Back Problems Y Stroke N Asthma N Neck Injury N Epilepsy/Seizures N Thyroid Disorder N Hepatitis N Aneurysm N Liver Disease N Neuropathy N Heart Disease N Headaches N Hypertension Y Kidney Disease N Past Encounters Encounter ID Performer Location Encounter Start Date Encounter Closed Date Diagnosis/Indication Diagnosis SNOMED-CT Code Diagnosis ICD10 Code Diagnosis Note [id number] Leandro Doshi MD Main Office [address] [place] [address] 04/13/2018 15:01:05 04/13/2018 15:56:08 Degeneration of lumbar intervertebral disc 85450749 M51.36 Degenerati on of cervical intervertebral disc 88837351 M50.30 Degenerati on of thoracic intervertebral disc 51768052 M51.34 Health Concerns Section Related Observation LastModified by Organization Detai ls LastModified Time None Recorded Concern Status LastModified by Organization Details LastModified Time None Recorded Advance Directives Directive None Recorded Payers Encounter Date Sequence Insurance Name Policy Number Policy Jarvis Covered Member ID Jarvis Member ID Guarantor Name 04/13/2018 1 [employer] (POS) [id number] Zay Raines [id number] Zay Raines Notes Date Note Type Note Provider Name and Address Organization Details Recorded Time 04/13/2018 text/html L-spineReported bypatient.Locati on:bilateral; lower back pain x many years. Upper back pain x 2 years. 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
--- OUTSIDE RECORDS SUMMARY | 2024-05-25 14:32 | XMS_ITS | Encounter Summary ---
Author Organization [facility] Address [address] [place] [address] Care Team Providers Care Research Nutritionist Name Role Phone Supriya Asif Primary Care Provider [phone]- [phone] Encounter Details Date Type Department Care Team (Late st Contact Info) Description 11/19/[address] [facility] NEUROSURGERY SCAN Neurosurgery, Scan Social History Tobacco [...] on filedocumented in this encounter Care Teams Research Nutritionist Relationship Specialty Start Date End Date Supriya Asif PA [address] [place] [address] PCP - General documented as of this encounter
--- OUTSIDE RECORDS SUMMARY | 2024-05-25 14:32 | XMS_ITS | Clinical Summary ---
Author Organization [facility] Address [address] [place] [address] Care Team Providers Care Special Agent Name Role Phone Supriya Asif Primary Care Provider [phone]- [phone] Allergies Active Allergy Reactions Criticality Noted Date Comments Penicillins Unknown/Patient and Family Unable to Define Medium 04/13/2018 Medications Medication Sig Dispensed Refills Start Date End Date Status methylPREDNISolone (MEDROL DOSEPAK) 4 MG tabletIndications:Disloca tion of finger, sequela,Stiffness of finger joint of left hand follow package directions 21 tablet 11/26/2022 Active valsartan-hydroCHLOROthia zide (DIOVAN-HCT) 160-25 MG per tabletIndications:Primary hypertension TAKE 1 TABLET BY MOUTH EVERY DAY 90 tablet 3 07/28/2023 Active rosuvastatin (CRESTOR) 10 MG tabletIndications:Pure hypercholesterolemia TAKE 1 TABLET BY MOUTH EVERY DAY 30 tablet 1 03/16/2024 Active Active Problems Problem Noted Date Diagnosed Date Dislocation of finger 11/12/2022 Stiffness of finger joint of left hand 3 Dyspnea 06/10/2022 Erectile dysfunction 06/10/2022 Essential familial hypercholesterolemia 06/11/19 23 Hyperglycemia 06/10/2022 Hypertension 06/10/2022 Hypogonadism, male 06/10/2022 Lumbar pain 06/10/2022 Testosterone deficiency 06/10/2022 Other cervical disc degeneration at C4-C5 level 04/13/2018 Encounters Date Type Department Care Team Description 05/20/2024 Refill [facility] [place] [address] [place] [phone] Supriya Asif PA Pure hypercholesterolemia 03/16/2024 Refill [facility] [place] [address] [place] [address] Supriya Asif PA Pure hypercholesterolemia from Last 3 Months Immunizations Name Administration Dates Next Due Influenza, Quadrivalent (FLU ARIX, AFLURIA, FLULAVAL, FLUZONE) Preservative Free IM 02/06/2021,01/13/2020,03/01/2016 Influenza, Unspecified 2012 Social History Tobacco Use Types Packs/Day Years Used Date Smoking Tobacco: Former Cigarettes 1 13 Smokeless Tobacco: Never Tobacco Cessation:Counseling Given: Not Answered Alcohol Use Standard Drinks/Week Comments Yes 21 (1 standard drink = 0.6 oz pu re alcohol) Sex and Gender Information Value Date Recorded Sex Assigned at Not on file Gender Identity Not on file Sexual Orientation Not on file Last Filed Vital Signs Vital Sign Reading Time Taken Comments Blood Pressure 130/82 06/10/2022 10:04 AM EDT Pulse 79 06/10/2022 10:04 AM EDT Temperature - - Respiratory Rate - - Oxygen Saturation 99% 06/10/2022 10:04 AM EDT Inhaled Oxygen Concentration - - Weight 78.9 kg (174 lb) 11/26/2022 1:20 PM EDT Height 170.2 cm (5' 7 ) 11/26/2022 1:20 PM EDT Body Mass Index 27.25 11/26/2022 1:20 PM EDT Plan of Treatment Health Maintenance Due Date Last Done Comments DTaP/Tdap/Td Vaccines (1 - Tdap) 1985 Hepatitis B Vaccines (1 of 3 - 19+ 3-dose series) 1985 Colonoscopy 2011 Pneumococcal Vaccines 50+ (1 of 1 - PCV) 01/13/2016 Zoster (Shingles) Vaccine (1 of 2) 01/13/2016 Influenza Vaccine 10/30/2023 02/06/2021, , 03/01/2016, Additional history exists COVID-19 Vaccine ( - 2023-2 5 season) 2023 02/07/2021, 07/14/2020, 06/23/2020 HIV Screening Completed 06/17/2022 Hepatitis C Virus Screening Completed 06/17/2022 Procedures Procedure Name Priority Date/Time Associated Diagnosis Comments HIV 1/2 AG/AB CMIA REFLEX TO CONFIRMATION Routine 06/17/2022 9:56 AM EDT HEPATITIS C VIRUS (HCV) ANTIBODY Routine 06/17/2022 9:56 AM EDT from Last 3 Months or Most Recently Relevant to Health Maintenance Results * HIV 1/2 Ag/Ab CMIA Reflex to Confirmation (06/17/2022 9:56 AM EDT) HIV Ag/Ab, 4th Gen NON-REACT ESTEPHANIE NON-REACT ESTEPHANIE [facility] Comment: HIV-1 antigen and HIV-1/HIV-2 antibodies were not detected. There is no laboratory evidence of HIV infection. PLEASE NOTE: This information has been disclosed to you from records whose confidentiality may be protected by state law. ??If your state requires such protection, then the state law prohibits you from making any further disclosure of the information without the specific written consent of the person to whom it pertains, or as otherwise permitted by law. A general authorization for the release of medical or other information is NOT sufficient for this purpose. ?? For additional information please refer to http://education.[employer]/faq/SCM655 (This link is being provided for informational/ educational purposes only.) The performance of this assay has not been clinically validated in patients less than 2 years old. 06/17/2022 9:56 AM EDT 06/17/2022 9:59 AM EDT Narrative [facility] - 06/17/2022 10:46 PM EDT FASTING:YES FASTING: YES Supriya MONTE LAB BLOOD ORDERABL ES [facility] [address] [place] [phone] * HEPATITIS C VIRUS (HCV) ANTIBODY (06/17/2022 9:56 AM EDT) Hepatitis C Antibody NON-REACT ESTEPHANIE NON-REACT ESTEPHANIE [facility] Hepatitis C Antibody (s/co) <0.02 <1.00 [facility] Comment: HCV antibody was non-reactive. There is no laboratory evidence of HCV infection. In most cases, no further action is required. However, if recent HCV exposure is suspected, a test for HCV RNA (test code 24323) is suggested. For additional information please refer to http://education.[employer]/faq/MOE52y8 (This link is being provided for informational/ educational purposes only.) 06/17/2022 9:56 AM EDT 06/17/2022 9:59 AM EDT Narrative [facility] - 06/17/2022 10:46 PM EDT FASTING:YES FASTING: YES Supriya MONTE LAB BLOOD ORDERABL ES Performing Organization Address City/State/[facility] Co de Phone Number [employer] [address] [place] [phone] from Last 3 Months or Most Recently Relevant to Health Maintenance Care Teams Special Agent Relationship Specialty Start Date End Date Supriya Asif PA [address] [facility] [address] [place] [address] PCP - General
== END 2024-05-25 13:37 | disposition home or self-care (01) ==
PROVIDERS: PCP Family Medicine; Visit Provider Family Medicine
DX: Z00.00 Encounter for general adult medical examination without abnormal findings (principal); E78.5 Hyperlipidemia, unspecified; I10 Essential (primary) hypertension; M54.9 Dorsalgia, unspecified; R00.0 Tachycardia, unspecified; R10.9 Unspecified abdominal pain; Z12.5 Encounter for screening for malignant neoplasm of prostate; Z12.11 Encounter for screening for malignant neoplasm of colon

== ENCOUNTER → 2024-05-25 11:52 | Outpatient (BNVA) | payer OTHER, SELFPAY | PROVIDERS: PCP Family Medicine; Visit Provider Family Medicine | DX: Z00.00 Encounter for general adult medical examination without abnormal findings (principal); E78.5 Hyperlipidemia, unspecified; I10 Essential (primary) hypertension; M54.9 Dorsalgia, unspecified; R00.0 Tachycardia, unspecified; R10.9 Unspecified abdominal pain | CPT/HCPCS: 93005; 96127 ==

== ENCOUNTER 2024-06-04 11:39 | Outpatient (AMB) | payer OTHER, SELFPAY ==
--- NOTE | 2024-06-04 11:45 | A.OFFPC_ITS ---
Vital Signs 06/04/24 11:52 Height 5 ft 7 in Weight 176 lb 4 oz BMI 27.6 BP 130/78 Blood Pressure Location Rt brachial Position Sitting Respiration 12 Pulse 97 Pulse Source Pulse Oximeter Temp 98.3 F Temp Source Oral Pulse Oximetry (%) 98 Oxygen Delivery Method Room Air Intake Visit Reasons: stomach issues Intake Note: Patient is here for abd pain x8days pt was seen in urgent care then transfered to [facility] ed Janitor Custodian Required: No Allergies Penicillins Allergy (Intermediate, Verified 06/04/24 11:50) Unknown Tobacco use date assessed: 05/25/24 Dental Screening Dental Screen Date: 03/17/24 HPI stomach issues HPI Details 59 y/o male presents today with complain ts of abd. pain. Reports abd. pain x 8 days. Had went to urgent care first and described pain as being in the middle. Had went to the ED and CT scan showed diverticuloses and likely diverticulitis. Was given metronidazole, cipro. Has an appt. with GI in July. [facility] Medical History (Updated 06/04/24 @ 12:25 by Bo Luu) Dislocated finger Testicular pain, left Breathing problem Sciatic leg pain Arthritis Back injury Low testosterone High blood pressure High blood cholesterol Surgical History (Updated 03/17/24 @ 13:01 by ELISE Crow) History of vasectomy History of hernia repair Family History (Updated 03/17/24 @ 13:05 by ELISE Crow) Father High blood pressure High cholesterol Prostate cancer Mother High blood pressure Brother High blood pressure High cholesterol Sister High blood pressure High cholesterol Social History (Updated 03/17/24 @ 13:05 by ELISE Crow) Housing: House Patient Tobacco Use Status: Never used Tobacco e-Cigarette/Vaping Use: Never Used Second Hand Smoke Exposure: No Substance Use Type: Marijuana service: No Current occupational status: retired Current occupational exposures/hazards: No Cognitive needs: No Hearing needs: No Vision needs: Yes Questionnaire Thrive Questionnaire Date Thrive assessed: 05/24/24 I am a: Patient What is your living situation today?: I have a steady place to live Within the past 12 months, did the food you bought not last and you didn't have the money to get more?: Never true Within the past 12 months, did you worry whether your food would run out before you got money to buy more?: Never true Do you have trouble paying for medicines?: No Do you have trouble getting transportation to medical appointments?: No Do you have trouble paying your heating and electricity bill?: No Do you have trouble taking care of your child, family member or friend?: No Do you have trouble with day-to-day activities such as bathing, preparing meals, shopping, managing finances, etc.?: No Are you currently unemployed and looking for a job?: No Are you interested in more education?: No Please select the resources that you would like help with: None Currently or been in a relationship where the following occur: No concerns reported THRIVE Score: 0 MARIA L-7 AMB Questionnaire MARIA L-7 Date MARIA L - 7 assessed: 05/25/24 Source: Developed by Drs. Ricky Baxter, Mary Jo Ascencio, Griffin Timmons and colleagues, with an educational moe from [employer]. Review of Systems Const Denies chills, Denies fatigue, Denies fever(s), Denies headache(s) and Denies weakness ENT Denies dizziness and Denies headache(s) Card Denies dyspnea Resp Denies cough, Denies dyspnea, Denies wheezing and Denies other (shortness of breath) GI Reports abdominal pain Musc Denies numbness and Denies tingling Neuro Denies dizziness, Denies headache(s), Denies numbness, Denies tingling and Denies weakness Psych Denies anxiety and Denies depression Endo Denies fatigue Aller/Immun Denies wheezing Physical exam (Primary Care) Vital Signs: Last Vital Signs Temp 98.3 F 06/04/24 11:52 Pulse 97 06/04/24 11:52 Resp 12 06/04/24 11:52 BP 130/78 06/04/24 11:52 Pulse Ox 98 06/04/24 11:52 Oxygen Delivery Method Room Air 06/04/24 11:52 BMI result Body Mass Index 27.6 Tobacco/Smoking Status: Tobacco use Status Tobacco use date assessed 05/25/24 06/04/24 11:49 Patient Tobacco Use Status Never used Tobacco 06/04/24 11:49 e-Cigarette/Vaping Use Never Used 06/04/24 11:49 Thrive Assessment: Date of Thrive Assessment Date Thrive assessed 05/24/24 06/04/24 11:49 Currently or been in a relationship where the following occur: No concerns reported Const General: well developed; No acute distress Nutritional Appearance: well nourished Orientation/consciousness: patient oriented x3 [facility] Head: Yes normocephalic and Yes atraumatic Eyes General: appearance normal, both eyes and all related structures Pupils: Equal, round and reactive pupils present EOM: EOMs intact bilaterally Resp Effort & Inspection: normal respiratory effort Auscultation: clear to auscultation bilaterally Cardio Rate: regular rate Rhythm: regular rhythm Heart sounds: S1 normal heart sound present, S2 normal heart sound present, no gallops, no murmurs and no rubs Neuro General: patient oriented x3 and gait normal Cranial nerves: Yes Equal, round and reactive pupils present Psych Affect: normal affect Coding Level of Care Code Est Pt Level 4 (90502) Diagnoses Abdominal pain R10.9 Diverticulitis K57.92 Left inguinal hernia K40.90 Hand pain M79.643 Assessment & Plan Assessment & Plan (1) Abdominal pain: Code(s): R10.9 - Unspecified abdominal pain Category: Medical Plan: Patient?has?had?complaints?of?abdominal?pain. This?seemed?to?worsen?over?the?weekend?and?was?seen?at?urgent?care.??Sympt oms?did?not?improve.??Patient?went?to?the?ED?and?CT?scan?showed diverticulosis?and?likely?diverticulitis?which?has?been?consistent?with?his?wors ened?symptoms. He?was?given?metronidazole?Cipro. He?has? been?working?on?a?clear?liquid?diet.??Did?try?to?advance?this?once?difficulty. ?He back?this?up?to?clear?liquids?again?in?has?been?feeling?better.??Ready?to?advanc e?his?diet?again Continue?all?antibiotics?until?finished.??Call?for?any?problems. Advanced?diet?as?tolerated He?has?an?appointment?with?Gastroenterology?in?May He?has?an?appointment?me?couple?weeks?later Call?or?return?to?office?not?improving?worsens. (2) Diverticulitis: Code(s): K57.92 - Diverticulitis of intestine, part unspecified, without perforation or abscess without bleeding Category: Medical Plan: As?above (3) Left inguinal hernia: Code(s): K40.90 - Unilateral inguinal hernia, without obstruction or gangrene, not specified as recurrent Category: Medical Plan: Patient?has?a?history?of?bilateral?inguinal?hernias?as?a?child. CT?scan?of?the?abdomen?showed?a?left?inguinal?hernia He?would?like?to?consult?a?surgeon?to?discuss?possible?repair Referred (4) Hand pain: Code(s): M79.643 - Pain in unspecified hand Category: Medical Plan: Bilateral?hand?tendinopathy Patient?has?tried?conservative?treatments?without?improvement. Refer?to?hand?surgery Orders: Referrals General Surgery Referral K40.90 - Unilateral inguinal hernia, without obstruction or gangrene, not specified as recurrent Hand Surgery Referral M79.643 - Pain in unspecified hand
[2024-06-04 11:52] VITALS: BP 130/78; PULSE 97; RESP 12; TEMP 36.8; O2SAT 98; BMI 27.6
--- OUTSIDE RECORDS SUMMARY | 2024-06-04 13:37 | XMS_ITS | Clinical Summary ---
Author Organization [facility] Address [address] [place] [address] Care Team Providers Care Rack Production Worker Name Role Phone Supriya Asif Primary Care Provider +1- [phone] Allergies Active Allergy Reactions Criticality Noted Date [...] Refill [facility] Department of Internal Medicine [place] [address] [place] [phone] Supriya Asif PA Pure hypercholesterolemia 03/16/2024 Refill [facility] [place] [address] [place] [address] Supriya Asif PA Pure hypercholesterolemia [...] Ag/Ab, 4th Gen NON-REACT ESTEPHANIE NON-REACT ESTEPHANIE [employer] Comment: HIV-1 antigen and HIV-1/HIV-2 antibodies were [...] ?? For additional information please refer to http://education.[employer]/faq/GRA442 (This link is being provided for informational/ educational purposes only.) The performance of this assay has not been clinically validated in patients less than 2 years old. 06/17/2022 9:56 AM EDT 06/17/2022 9:59 AM EDT Narrative [facility] - 06/17/2022 10:46 PM EDT FASTING:YES FASTING: YES Supriya MONTE LAB BLOOD ORDERABL ES [email or web address] [address] [place] [phone] * HEPATITIS C VIRUS (HCV) ANTIBODY (06/17/2022 9:56 AM EDT) Hepatitis C Antibody NON-REACT ESTEPHANIE NON-REACT ESTEPHANIE [employer] Hepatitis C Antibody (s/co) <0.02 <1.00 [employer] Comment: HCV antibody was non-reactive. There is no laboratory evidence of HCV infection. In most cases, no further action is required. However, if recent HCV exposure is suspected, a test for HCV RNA (test code 94142) is suggested. For additional information please refer to http://education.[employer]/faq/FRS68m8 (This link is being provided for informational/ educational purposes only.) 06/17/2022 9:56 AM EDT 06/17/2022 9:59 AM EDT Narrative [facility] - 06/17/2022 10:46 PM EDT FASTING:YES FASTING: YES Supriya MONTE LAB BLOOD ORDERABL ES Performing Organization Address City/State/[facility] Co de Phone Number [email or web address] [address] [place] [phone] from Last 3 Months or Most Recently Relevant to Health Maintenance Care Teams Rack Production Worker Relationship Specialty Start Date End Date Supriya Asif PA [address] [facility] [address] [place] [address] PCP - General
--- OUTSIDE RECORDS SUMMARY | 2024-06-04 13:37 | XMS_ITS | Encounter Summary ---
Author Organization [facility] Address [address] [place] [address] Care Team Providers Care Die Grinder Name Role Phone Supriya Asif Primary Care Provider +1- [phone] Encounter Details Date Type Department Care Team (Late st Contact Info) Description 04/19/2019 Scanned Document [facility] NEUROSURGERY SCAN Neurosurgery, Scan Social History [...] on filedocumented in this encounter Care Teams Die Grinder Relationship Specialty Start Date End Date Supriya Asif PA [address] [place] [address] PCP - General documented as of this encounter
--- OUTSIDE RECORDS SUMMARY | 2024-06-04 13:37 | XMS_ITS | Data Portability ---
Author Organization [place] [facility], Main Office Address [address] [facility] [address] [place] [address] Care Team Providers Care Crochet Beader Name Role Phone PROMISEBARRYAH Primary Care Provider Assessment No assessment recorded. [...] By Organization Details Last Modified Time 04/13/2018 [id number] Zay is here f or neurosurgical evaluation [...] has not undergone any recent physical therapy, sub acute care nurse or acupuncture. He has taken [id number] anti-inflammatorie s with some improvement. On examination [...] intervertebral disc Referring Physician: Manny Hernandez, Physician Architecture Analyst, Encounter Date: 04/13/2018 Problems Name Problem SNOMED Code Status Onset Date Resolution Date Notes Provider Name and Address Organization Details Recorded Time Degeneration of lumbar intervertebra l disc 98464304 Active 2018 Manny Hernandez PA-C [address], [place], [address], [place] [facility] 9 16:43:41 Degeneration of cervical intervertebra l disc 27580457 Active 2018 Manny Hernandez PA-C [address], [place], [address], [place] [facility] 9 16:43:42 Degeneration of thoracic intervertebra l disc 44800374 Active 2018 Manny Hernandez PA-C [address], [place], [address], [place] [facility] 9 16:43:43 Problem Notes None recorded. Medical Equipment None Reported. Allergies Allergen ID Allergen Name Allergen Category Reaction Reaction Severity Criticality Documentation Date Start Date Code Code System Note Provider Name and Address Organization Details Recorded Time 4326 Product containin g penicilli n (product) medicatio n Not available Not available Not available 04/13/2018 81493 8001 SNOMED Rebecca Max [facility], [place] [facility] 9 15:20:03 Medications Name [...] 04/13/2018 171.45 cm 98.2 [degF] 27 kg/m2 10024.66 g Rebecca Max [facility] 04/13/2018 16:03:29 Social History Question Answer Notes LastModified by Organizat ion Details LastModified Time Tobacco Smoking Status Former Smoker Rebecca Max [place], [facility] 04/13/2018 15:25:02 What Is Your Level Of Alcohol Consumption? Moderate [email or web address] Information not available 04/13/2018 What Is Your Level Of Caffeine Consumption? 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 04/13/2018 Information not available 10/21/2018 Sex: Male Functional Status None recorded. Mental Status None recorded. Family History Relationship Description Onset Age of this Age Resolved Age Notes LastModified by Organization Details LastModified Time Father Hypertensive disorder [email or web address] Not available 04/13 15:24:22 Father Hypercholest erolemia [email or web address] Not available 04/13 15:24:34 Mother Disorder of thyroid gland [email or web address] Not available 04/13 15:24:54 Sister Disorder of thyroid gland [email or web address] Not available 04/13 15:24:54 Medical History Condition Response Coronary Artery Disease N Other N Anxiety/Depression N Parkinson's Disease N MRSA N Head Trauma/Injury N Brain Tumors N PTSD N Anemia N Multiple Sclerosis N Meningitis N Spine/Back Problems Y Heart Attack ([place]) N Neurological Problems N Anxiety Disorder N [...] SNOMED-CT Code Diagnosis ICD10 Code Diagnosis Note [id number] Leandro Doshi MD Main Office [address] [place] [address] 04/13/2018 15:01:05 04/13/2018 15:56:08 Degeneration of lumbar intervertebral disc 51424082 M51.36 Degenerati on of cervical intervertebral disc 02305245 M50.30 Degenerati on of thoracic intervertebral disc 39730022 M51.34 Health Concerns Section Related Observation LastModified by Organization Detai ls LastModified Time None Recorded Concern Status LastModified by Organization Details LastModified Time None Recorded Advance Directives Directive None Recorded Payers Encounter Date Sequence Insurance Name Policy Number Policy Jarvis Covered Member ID Jarvis Member ID Guarantor Name 04/13/2018 1 [employer] (POS) [id number] Zay Raines [id number] Zay Raines Notes Date Note Type [...] fever Previous Surgery:none Prior Imaging:MRI ([facility] lumbar spine 12/23/2017) Previous Injections:none Previous PT:none (recent) 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
--- OUTSIDE RECORDS SUMMARY | 2024-06-04 13:37 | XMS_ITS | Clinical Summary ---
Author Organization [facility] Address [address] [place] [address] Care Team Providers Care Certified Registered Locksmith Name Role Phone Demarcus Aden MD Primary Care Provider [phone] Allergies Active Allergy Reactions Criticality Noted Date Comments Penicillins 08/18/2020 Medications Omeprazole (PriLOSEC OTC) 20 MG EC tablet Take 1 tablet 30-60 minutes before breakfast 30 3 1 Active famotidine (Famotidine Maximum Strength) 20 MG tablet TAKE 1 TABLET DAILY DIRECTED. 30 3 1 Active Active Problems Problem Noted Date Diagnosed Date Dyspnea 08/21/2020 Overview (05/04/2023): Impression - [id number]: - Head and neck exam including laryngoscopy essentially unremarkable with exception of signs of LPR. No paradoxical vocal fold motion noted on exam. I have a low suspicion of PVFMD as the source of his dyspnea. We did discuss that LPR can exacerbate underlying asthma/pulmonary issues.; - See LPR plan; - Recommended he [place] back to his PCP if he has not had recent EKG/cardiac work-up since onset of his symptoms. Impression - [id number]: - Head and neck exam including laryngoscopy essentially unremarkable with exception of signs of LPR. No paradoxical vocal fold motion noted on exam. I have a low suspicion of PVFMD as the source of his dyspnea given his symptom profile. We did discuss that LPR can exacerbate underlying asthma/pulmonary issues.; - See LPR plan; - Recommended he [place] back to his PCP if he has not had recent EKG/cardiac work-up since onset of his symptoms. Laryngopharyngeal reflux 08/18/2020 Overview (05/04/2023): Impression - [id number]: - I had an extensive discussion with the patient regarding their laryngeal examination and findings which are suggestive of laryngopharyngeal reflux. We discussed lifestyle modifications including dietary changes, weight loss and medical management. Patient provided with handout.; - Trial of Omeprazole 20 mg once daily and Famotidine 20 mg at bedtime to see if this improves his breathing symptoms. Impression - [id number]: - I had an extensive discussion with [...] age to complete this topic Care Teams Certified Registered Locksmith Relationship Specialty Start Date End Date Demarcus Aden MD [address] [place] [address] PCP - General 11/04/22
--- OUTSIDE RECORDS SUMMARY | 2024-06-04 13:37 | XMS_ITS | Encounter Summary ---
Author Organization [facility] Address [address] [place] [address] Care Team Providers Care Extruder Operator Vertical Name Role Phone Supriya Asif Primary Care Provider [phone]- [phone] Encounter Details Date Type Department Care Team (Late st Contact Info) Description 11/19/2018 Scanned Document [facility] NEUROSURGERY SCAN Neurosurgery, Scan Social History Tobacco [...] on filedocumented in this encounter Care Teams Extruder Operator Vertical Relationship Specialty Start Date End Date Supriya Asif PA [address] [place] [address] PCP - General documented as of this encounter
--- OUTSIDE RECORDS SUMMARY | 2024-06-04 13:37 | XMS_ITS | Clinical Summary ---
Author Organization [facility] [place] [address] Care Team Providers Care Foreign Trade Teacher Name Role Phone Renzo Yeh MD Primary Care Provider [phone] Social History Tobacco Use Types Packs/Day Years [...] age to complete this topic Care Teams Foreign Trade Teacher Relationship Specialty Start Date End Date Renzo Yeh MD [address] [address] PCP - General Internal Medicine 07/11/17
--- OUTSIDE RECORDS SUMMARY | 2024-06-04 13:37 | XMS_ITS | Encounter Summary ---
Author Organization [facility] Address [address] [place], [place] [address] Care Team Providers Care Shot Packer Name Role Phone Supriya Asif Primary Care Provider [phone]- [phone] Reason for Visit * Reason Comments Medication Refill Encounter Details Date Type Department Care Team (Late st Contact Info) Description 05/20/2024 Refill [facility] Department of Internal Medicine [place] [address] [place] [address] Supriya Asif PA [address] [place] [phone] Pure hypercholesterolemia Social History Tobacco Use Types [...] hypercholesterolemia documented in this encounter Care Teams Shot Packer Relationship Specialty Start Date End Date Supriya Asif PA [address] [place] [id number] PCP - General documented as of this encounter
--- OUTSIDE RECORDS SUMMARY | 2024-06-04 13:37 | XMS_ITS | Clinical Summary ---
Author Organization [facility] Address [address] [place] [address] Care Team Providers Care Nursing Director Name Role Phone Renzo Yeh MD Primary [...] age to complete this topic Care Teams Nursing Director Relationship Specialty Start Date End Date Renzo Yhe MD PCP - General Internal Medicine 07/11/17
== END 2024-06-04 14:19 | disposition home or self-care (01) ==
PROVIDERS: PCP Family Medicine; Visit Provider Family Medicine
DX: R10.9 Unspecified abdominal pain (principal); K57.92 Diverticulitis of intestine, part unspecified, without perforation or abscess without bleeding; K40.90 Unilateral inguinal hernia, without obstruction or gangrene, not specified as recurrent; M79.643 Pain in unspecified hand

== ENCOUNTER → 2024-06-04 11:39 | Outpatient (BNVA) | payer OTHER, SELFPAY | PROVIDERS: PCP Family Medicine; Visit Provider Family Medicine ==

== ENCOUNTER 2024-06-22 13:30 | Outpatient (AMB) | payer OTHER, SELFPAY ==
--- NOTE | 2024-06-22 13:36 | MHC.OFFVIS ---
Vital Signs 06/22/24 13:42 Height 5 ft 7 in Weight 158 lb BMI 24.7 BP 151/85 H Blood Pressure Location Lt brachial Position Sitting Pulse 88 Intake Visit Reasons: Left inguinal hernia Intake Note: Patient is seen in office for evaluation of a left inguinal hernia. Pt c/o: discomfort in the left groin for a couple months, had CT scan done, had bilateral hernia repair in the past, might be due to gym, denies n/v/d/c CT:05/31/24 Meal Grinder Tender Required: No Accompanied by: Self / Same As Patient Allergies Penicillins Allergy (Intermediate, Verified 06/22/24 13:41) Unknown Medication List - Last Reconciled 06/22/24 by Sal Chavarria MD ciprofloxacin (Cipro) 500 mg PO Q12H diclofenac sodium 1% (Aleve (diclofenac)) 2 grams topical BID 60 days metronidazole 500 mg PO Q8H rosuvastatin mg PO ONCE valsartan-hydrochlorothiazide 160-25 mg tabs PO DAILY HPI Comments Details: 59-year-old male patient presenting for evaluation of a left inguinal hernia. He initially developed abdominal pain in the left lower quadrant and was found to have diverticulitis. He was evaluated with a CT abdomen and pelvis performed on 05/31/2024 at [facility]. He was subsequently treated with antibiotics and now feels much improved. On follow-up examination however, a left inguinal hernia was noted on the CT therefore surgical evaluation was recommended. He has noted some discomfort in the left groin especially with lifting. He has held off on going to the gym because of this. He denies any palpable mass/lump in the left groin. He does report a prior history of bilateral inguinal hernia repairs many years ago. He denies nausea, vomiting, fever, chills, or any recent bowel changes. He presents today to discuss his options regarding repair of this left inguinal hernia. [facility] Medical History Dislocated finger Testicular pain, left Breathing problem Sciatic leg pain Arthritis Back injury Low testosterone High blood pressure High blood cholesterol Surgical History History of vasectomy History of hernia repair Family History Father High blood pressure High cholesterol Prostate cancer Mother High blood pressure Brother High blood pressure High cholesterol Sister High blood pressure High cholesterol Social History Housing: House Patient Tobacco Use Status: Never used Tobacco e-Cigarette/Vaping Use: Never Used Second Hand Smoke Exposure: No Substance Use Type: Marijuana service: No Current occupational status: retired Current occupational exposures/hazards: No Cognitive needs: No Hearing needs: No Vision needs: Yes Review of Systems Const All systems reviewed & are unremarkable except as noted in HPI and below Physical Exam Vital Signs: Last Vital Signs Pulse 88 06/22/24 13:42 BP 151/85 H 06/22/24 13:42 BMI result Body Mass Index 24.7 Const General: cooperative and no acute distress Nutritional Appearance: well nourished Orientation/consciousness: patient oriented x3 Limitations: no limitations HEENT Head: Yes normocephalic and Yes atraumatic Ears: hearing grossly normal bilaterally Resp Effort & Inspection: normal respiratory effort, no audible wheezes, no cough and no respiratory distress Cardio Jugular venous distension: no JVD GI Other: Examination in the standing position with Valsalva maneuvers does reveal a small recurrent left inguinal hernia which spontaneously reduces. No right inguinal hernias appreciated. Inspection: Yes normal to inspection Palpation (GI): Soft to palpation, nontender and no guarding Skin Other: Warm, dry, no rash Neuro General: patient oriented x3 Extrem General: Yes no clubbing, cyanosis or edema Assessment & Plan Assessment & Plan (1) Left inguinal hernia: Code(s): K40.90 - Unilateral inguinal hernia, without obstruction or gangrene, not specified as recurrent Category: Medical Plan 59-year-old male patient presenting with a recurrent left inguinal hernia noted both by CT and on physical examination. This hernia is quite small and does not need immediate repair. I discussed the options for surgical repair of this left inguinal hernia using mesh. She certainly could wait until the fall or winter when he was doing less lifting. He understands that he will need to avoid lifting for approximately 30 days after the hernia repair. In the meantime we discussed wearing a hernia truss if heavy lifting is required to help support this location. He expressed understanding and agrees with the plan. He will call our office when he is ready to schedule the surgery. Coding Level of Care Code New Pt Level 4 (43673) Diagnoses Left inguinal hernia K40.90
[2024-06-22 13:42] VITALS: BP 151/85; PULSE 88; BMI 24.7
--- OUTSIDE RECORDS SUMMARY | 2024-06-22 16:32 | XMS_ITS | Clinical Summary ---
Author Organization [facility] Address [address] [place] [address] Care Team Providers Care Heavy Machinery Operator Name Role Phone Demarcus Aden MD Primary Care Provider [phone] Allergies Active Allergy Reactions Criticality Noted Date Comments Penicillins 08/18/2020 Medications Omeprazole (PriLOSEC OTC) 20 MG EC tablet Take 1 tablet 30-60 minutes before breakfast 30 3 1 Active famotidine (Famotidine Maximum Strength) 20 MG tablet TAKE 1 TABLET DAILY DIRECTED. 30 3 1 Active Active Problems Problem Noted Date Diagnosed Date Dyspnea 08/21/2020 Overview (05/04/2023): Impression - [id number]: - Head and neck exam including laryngoscopy essentially unremarkable with exception of signs of LPR. No paradoxical vocal fold motion noted on exam. I have a low suspicion of PVFMD as the source of his dyspnea. We did discuss that LPR can exacerbate underlying asthma/pulmonary issues.; - See LPR plan; - Recommended he [place] back to his PCP if he has not had recent EKG/cardiac work-up since onset of his symptoms. Impression - [id number]: - Head and neck exam including laryngoscopy essentially unremarkable with exception of signs of LPR. No paradoxical vocal fold motion noted on exam. I have a low suspicion of PVFMD as the source of his dyspnea given his symptom profile. We did discuss that LPR can exacerbate underlying asthma/pulmonary issues.; - See LPR plan; - Recommended he [place] back to his PCP if he has not had recent EKG/cardiac work-up since onset of his symptoms. Laryngopharyngeal reflux 08/18/2020 Overview (05/04/2023): Impression - [id number]: - I had an extensive discussion with the patient regarding their laryngeal examination and findings which are suggestive of laryngopharyngeal reflux. We discussed lifestyle modifications including dietary changes, weight loss and medical management. Patient provided with handout.; - Trial of Omeprazole 20 mg once daily and Famotidine 20 mg at bedtime to see if this improves his breathing symptoms. Impression - [id number]: - I had an extensive discussion with [...] age to complete this topic Care Teams Heavy Machinery Operator Relationship Specialty Start Date End Date Demarcus Aden MD [address] [place] [address] PCP - General 11/04/22
--- OUTSIDE RECORDS SUMMARY | 2024-06-22 16:32 | XMS_ITS | Clinical Summary ---
Author Organization [facility] Address [address] [place] [address] Care Team Providers Care Clerk Funeral Detail Name Role Phone Renzo Yeh MD Primary [...] age to complete this topic Care Teams Clerk Funeral Detail Relationship Specialty Start Date End Date Renzo Yeh MD PCP - General Internal Medicine 07/11/17
--- OUTSIDE RECORDS SUMMARY | 2024-06-22 16:32 | XMS_ITS | Encounter Summary ---
Author Organization [facility] Address [address] [place], [place] [address] Care Team Providers Care Laborer Salvage Name Role Phone Supriya Asif Primary Care Provider [phone] Reason for Visit * Reason Comments Medication Refill Encounter Details Date Type Department Care Team (Late st Contact Info) Description 05/20/2024 Refill [facility] Department of Internal Medicine [place] [address] [place] [address] Supriya Asif PA [address] [place] [phone] Pure hypercholesterolemia Social History Tobacco Use Types [...] hypercholesterolemia documented in this encounter Care Teams Laborer Salvage Relationship Specialty Start Date End Date Supriya Asif PA [address] [place] [id number] PCP - General documented as of this encounter
--- OUTSIDE RECORDS SUMMARY | 2024-06-22 16:32 | XMS_ITS | Clinical Summary ---
Author Organization [facility] Address [address] [place] [address] Care Team Providers Care Metallurgical Tester Name Role Phone Supriya Asif Primary Care Provider [phone] Allergies Active Allergy Reactions Criticality Noted Date [...] Refill [facility] Department of Internal Medicine [place] [address] [place] [address] Supriya Asif PA Pure hypercholesterolemia [...] , 03/01/2016, Additional history exists COVID-19 Vaccine (4 - 2023-2 5 season) 2023 02/07/2021, 07/14/2020, [...] Ag/Ab, 4th Gen NON-REACT ESTEPHANIE NON-REACT ESTEPHANIE [employer] Comment: HIV-1 antigen and HIV-1/HIV-2 antibodies were [...] ?? For additional information please refer to http://education.[employer]/faq/CRB376 (This link is being provided for informational/ educational purposes only.) The performance of this assay has not been clinically validated in patients less than 2 years old. 06/17/2022 9:56 AM EDT 06/17/2022 9:59 AM EDT Narrative [facility] - 06/17/2022 10:46 PM EDT FASTING:YES FASTING: YES Supriya MONTE LAB BLOOD ORDERABL [employer] [address] [place] [phone] * HEPATITIS C VIRUS (HCV) ANTIBODY (06/17/2022 9:56 AM EDT) Hepatitis C Antibody NON-REACT ESTEPHANIE NON-REACT ESTEPHANIE [employer] Hepatitis C Antibody (s/co) <0.02 <1.00 [employer] Comment: HCV antibody was non-reactive. There is no laboratory evidence of HCV infection. In most cases, no further action is required. However, if recent HCV exposure is suspected, a test for HCV RNA (test code 47827) is suggested. For additional information please refer to http://education.[employer]/faq/NMK66l0 (This link is being provided for informational/ educational purposes only.) 06/17/2022 9:56 AM EDT 06/17/2022 9:59 AM EDT Narrative [facility] - 06/17/2022 10:46 PM EDT FASTING:YES FASTING: YES Supriya MONTE LAB BLOOD ORDERABL ES [employer] [address] [place] [phone] from Last 3 Months or Most Recently Relevant to Health Maintenance Care Teams Metallurgical Tester Relationship Specialty Start Date End Date Supriya Asif PA [address] [address] PCP - General
--- OUTSIDE RECORDS SUMMARY | 2024-06-22 16:32 | XMS_ITS | Encounter Summary ---
Author Organization [facility] Address [address] [place] [address] Care Team Providers Care Automotive Instructor Name Role Phone Supriya Asif Primary Care Provider +1- [phone] Encounter Details Date Type Department Care Team (Late st Contact Info) Description 11/19/2018 Scanned Document [facility] NEUROSURGERY SCAN Neurosurgery, Scan Social History [...] on filedocumented in this encounter Care Teams Automotive Instructor Relationship Specialty Start Date End Date Supriya Asif PA [address] [place] [address] PCP - General documented as of this encounter
--- OUTSIDE RECORDS SUMMARY | 2024-06-22 16:32 | XMS_ITS | Clinical Summary ---
Author Organization [facility] [place] [address] Care Team Providers Care Motor Winder Name Role Phone Renzo Yeh MD Primary Care Provider [phone] Social History Tobacco Use Types Packs/Day Years [...] age to complete this topic Care Teams Motor Winder Relationship Specialty Start Date End Date Renzo Yeh MD [address] [address] PCP - General Internal Medicine 07/11/17
--- OUTSIDE RECORDS SUMMARY | 2024-06-22 16:32 | XMS_ITS | Encounter Summary ---
Author Organization [facility] Address [address] [place] [address] Care Team Providers Care Php Lamp Developer Name Role Phone Supriya Asif Primary Care Provider [phone]- [phone] Encounter Details Date Type Department Care Team (Late st Contact Info) Description 04/19/2019 Scanned Document [facility] NEUROSURGERY SCAN Neurosurgery, Scan Social History [...] on filedocumented in this encounter Care Teams Php Lamp Developer Relationship Specialty Start Date End Date Supriya Asif PA [address] [place] [address] PCP - General documented as of this encounter
== END 2024-06-22 14:15 | disposition home or self-care (01) ==
LOC: HO.HGS 13:31
PROVIDERS: PCP Family Medicine; Visit Provider Surgery
DX: K40.90 Unilateral inguinal hernia, without obstruction or gangrene, not specified as recurrent (principal)
CPT/HCPCS: 99204

== ENCOUNTER 2024-07-27 13:11 | Outpatient (AMB) | payer BC, SELFPAY ==
--- NOTE | 2024-07-27 13:29 | A.OFFVIS_ITS ---
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 Patient reports that he is having pain in bilateral hands, left is worse than right.He reports that this pain is activated with increased activity, pain radiates up to the elbow. Hx of left small finger dislocation about 2 years ago. It appears that he has raised/tight tendons in the palm of his hand. Reports numbness and tingling in bilateral hands. 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 Patient reports that he is having pain in bilateral hands, left is worse than right.He reports that this pain is activated with increased activity, pain radiates up to the elbow. Hx of left small finger dislocation about 2 years ago. It appears that he has raised/tight tendons in the palm of his hand. [facility] Medical History Dislocated finger Testicular pain, left Breathing problem Sciatic leg pain Arthritis Back injury Low testosterone High blood pressure High blood cholesterol Surgical History History of vasectomy History of hernia repair Family History Father High blood pressure High cholesterol Prostate cancer Mother High blood pressure Brother High blood pressure High cholesterol Sister High blood pressure High cholesterol Social History Housing: House Patient Tobacco Use Status: Never used Tobacco e-Cigarette/Vaping Use: Never Used Second Hand Smoke Exposure: No Substance Use Type: Marijuana service: No Current occupational status: retired Current occupational exposures/hazards: No Cognitive needs: No Hearing needs: No Vision needs: Yes Review of Systems Const All systems reviewed & are unremarkable except as noted in HPI and below Physical Exam Extrem Other: Patient is alert, oriented, and in no acute distress. Neuro: Normal sensation of the tips of all digits of the bilateral hand at this time Vascular: Cap refill brisk Pain: No tenderness to palpation about the bilateral hands and wrists Some pain with bilateral hand range of motion ROM: Patient was able to make a closed fist and extend all digits of bilateral hands fully, reports minor discomfort when doing so Skin: No lacerations or abrasions. General: No ecchymosis, erythema, or evidence of infection. Psych: Appears grossly normal Affect normal Attitude cooperative Assessment & Plan Assessment & Plan (1) Bilateral hand numbness: Code(s): R20.0 - Anesthesia of skin Category: Medical (2) Stiffness of joints of both hands: Code(s): M25.641 - Stiffness of right hand, not elsewhere classified; M25.642 - Stiffness of left hand, not elsewhere classified Category: Medical Plan 1. Bilateral hand numbness and tingling 2. Bilateral hand pain Patient is educated about this condition Patient is educated about the typical treatment course At this time, patient was referred for EMG and nerve conduction study for assessment of the health of the nerves of bilateral upper extremities Follow-up after EMG and nerve conduction study for results review and discussion of further treatment options if indicated We will consider OT referral if EMG is negative Follow-up after study Orders: Orders XR Hand Bilat min 3v 07/27/24 M79.643 - Pain in unspecified hand NE electromyogram (EMG) 07/27/24 R20.0 - Anesthesia of skin, R20.2 - Paresthesia of skin NE nerve conduction velocity 07/27/24 R20.0 - Anesthesia of skin, R20.2 - Paresthesia of skin Coding Level of Care Code Est Pt Level 3 (15631) Diagnoses Bilateral hand numbness R20.0 Stiffness of joints of both hands M25.641; M25.642
--- OUTSIDE RECORDS SUMMARY | 2024-07-27 15:14 | XMS_ITS | Clinical Summary ---
Author Organization [facility] Address [address] [place] [address] Care Team Providers Care Head Trimmer Name Role Phone Renzo Yeh MD Primary Care Provider Social History Tobacco Use Types Packs/Day Years [...] 5 season) 2023 07/14/2020, 06/23/2020 Influenza Vaccine (Season Ended) 2024 HIB Vaccines Aged Out No longer eligi [...] age to complete this topic Meningococcal B Vaccine Aged Out No l onger eligible based on patient's age to complete [...] age to complete this topic Care Teams Head Trimmer Relationship Specialty Start Date End Date Renzo Yeh MD [address] [address] PCP - General Internal Medicine 07/11/17
--- OUTSIDE RECORDS SUMMARY | 2024-07-27 15:14 | XMS_ITS | Clinical Summary ---
Author Organization [facility] Address [address] [place] [address] Care Team Providers Care Quill Fixer Name Role Phone Renzo Yeh MD Primary [...] age to complete this topic Care Teams Quill Fixer Relationship Specialty Start Date End Date Renzo Yeh MD PCP - General Internal Medicine 07/11/17
--- OUTSIDE RECORDS SUMMARY | 2024-07-27 15:14 | XMS_ITS | Encounter Summary ---
Author Organization [facility] Address [address] [place] [address] Care Team Providers Care Avionics Supervisor Name Role Phone Supriya Asif Primary Care Provider [phone]- [phone] Reason for Visit * Reason Comments Medication Refill Encounter Details Date Type Department Care Team ([facility] st Contact Info) Description 05/20/2024 Refill [facility] Department of Internal Medicine [place] [address] [place] [id number] Supriya Asif PA [address] [place] [address] Pure hypercholesterolemia Social History Tobacco Use Types Packs/Day Years Used Date Smoking Tobacco: Former Cigarettes 1 13 Smokeless Tobacco: Never Alcohol Use Standard Drinks/Week Comments Yes 21 (1 standard drink = 0.6 oz pu re alcohol) Sex and Gender Information Value Date Recorded Sex Assigned at Not on file Legal Sex Male 10:26 AM EST Gender Identity Not on file Sexual Orientation Not on file Occupation Industry Job Start Date Job End Date retired Not on file Not on file Not on file documented as of this encounter Miscellaneous Notes * Telephone Encounter - Delmy Villaseñor LPN - 05/20/2024 10:16 AM EST Patient is missing a follow up appointment OR needs appropriate labs for prescription renewal. documented in this encounter Plan of Treatment Not on file documented as of this encounter Visit Diagnoses Diagnosis Pure hypercholesterolemia documented in this encounter Care Teams Avionics Supervisor Relationship Specialty Start Date End Date Supriya Asif PA [address] [place] [address] PCP - General documented as of this encounter
--- OUTSIDE RECORDS SUMMARY | 2024-07-27 15:14 | XMS_ITS | Data Portability ---
Author Organization [place] [facility] Main Office Address [address] [place] [address] Care Team Providers Care Jig Grinder Set Up Operator Name Role Phone BARRY VIRGENAH Primary Care Provider [phone] Assessment No assessment recorded. Plan of Treatment [...] By Organization Details Last Modified Time 04/13/2018 [id number] Zay is here f or neurosurgical evaluation [...] has not undergone any recent physical therapy, pet care attendant or acupuncture. He has taken [id number] anti-inflammatorie s with some improvement. On examination [...] intervertebral disc Referring Physician: Manny Hernandez, Physician Head Trimmer, Encounter Date: 04/13/2018 Problems Name Problem SNOMED Code Status Onset Date Resolution Date Notes Provider Name and Address Organization Details Recorded Time Degeneration of lumbar intervertebra l disc 45150973 Active 2018 Manny Hernandez PA-C [address], [place], [address], [place] [facility] 9 16:43:41 Degeneration of cervical intervertebra l disc 19040254 Active 2018 Manny Hernandez PA-C [address], [place], [address], [place] [facility] 9 16:43:42 Degeneration of thoracic intervertebra l disc 44137940 Active 2018 Manny Hernandez PA-C [address], [place], [address], [place] [facility] 9 16:43:43 Problem Notes None recorded. Medical Equipment None Reported. Allergies Allergen ID Allergen Name Allergen Category Reaction Reaction Severity Criticality Documentation Date Start Date Code Code System Note Provider Name and Address Organization Details Recorded Time 4326 Product containin g penicilli n (product) medicatio n Not available Not available Not available 04/13/2018 00801 8001 SNOMED Rebecca Max [facility], [place] [facility] 9 15:20:03 Medications [...] 04/13/2018 171.45 cm 98.2 [degF] 27 kg/m2 00005.66 g Rebecca Max [facility] 04/13/2018 16:03:29 Social History Question Answer Notes LastModified by Organizat ion Details LastModified Time Tobacco Smoking Status Former Smoker Rebecca Max [place], [facility] 04/13/2018 15:25:02 What Is Your Level Of Alcohol Consumption? Moderate [email or web address] Information not available 04/13/2018 What Is Your Level Of Caffeine Consumption? 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 04/13/2018 Information not available 10/21/2018 Sex: Male Functional Status None recorded. Mental Status None recorded. Family History Relationship Description Onset Age of this Age Resolved Age Notes LastModified by Organization Details LastModified Time Father Hypertensive disorder [email or web address] Not available 04/13 15:24:22 Father Hypercholest erolemia [email or web address] Not available 04/13 15:24:34 Mother Disorder of thyroid gland [email or web address] Not available 04/13 15:24:54 Sister Disorder of thyroid gland Not available 04/13 15:24:54 Medical History Condition Response Coronary Artery Disease N Other N Anxiety/Depression N Parkinson's Disease N MRSA N Head Trauma/Injury N Brain Tumors N PTSD N Anemia N Multiple Sclerosis N Meningitis N Spine/Back Problems Y Heart Attack ([place]) N Neurological Problems N Anxiety Disorder N [...] SNOMED-CT Code Diagnosis ICD10 Code Diagnosis Note [id number] Leandro Doshi MD Main Office [address] [place] [address] 04/13/2018 15:01:05 04/13/2018 15:56:08 Degeneration of lumbar intervertebral disc 40195081 M51.36 Degenerati on of cervical intervertebral disc 26816595 M50.30 Degenerati on of thoracic intervertebral disc 50607411 M51.34 Health Concerns Section Related Observation LastModified by Organization Detai ls LastModified Time None Recorded Concern Status LastModified by Organization Details LastModified Time None Recorded Advance Directives Directive None Recorded Payers Encounter Date Sequence Insurance Name Policy Number Policy Jarvis Covered Member ID Jarvis Member ID Guarantor Name 04/13/2018 1 [employer] (POS) [id number] Zay Raines [id number] Zay Raines Notes Date Note Type [...] leg; no fever Previous Surgery:none Prior Imaging:MRI ([facility] lumbar spine 12/23/2017) Previous Injections:none Previous PT:none (recent) 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
--- OUTSIDE RECORDS SUMMARY | 2024-07-27 15:15 | XMS_ITS | Encounter Summary ---
Author Organization [facility] Address [address] [place] [address] Care Team Providers Care Automotive Manager Name Role Phone Supriya Asif Primary Care Provider +1- [phone] Encounter Details Date Type Department Care Team (Late st Contact Info) Description 11/19/2018 Scanned Document [facility] NEUROSURGERY SCAN Neurosurgery, Scan Social History [...] filedocumented in this encounter Care Teams Automotive Manager Relationship Specialty Start Date End Date Supriya Asif PA [address] [place] [address] PCP - General documented as of this encounter
--- OUTSIDE RECORDS SUMMARY | 2024-07-27 15:15 | XMS_ITS | Clinical Summary ---
Author Organization [facility] Address [address] [place] [address] Care Team Providers Care Specialty Cook Name Role Phone Supriya Asif Primary Care Provider +1- [phone] Allergies Active Allergy Reactions Criticality Noted Date Comments Penicillins Unknown/Patient and Family Unable to Define Medium 04/13/2018 Medications methylPREDNISolone (MEDROL DOSEPAK) 4 MG tabletIndications:Dislo cation of finger, sequela,Stiffness of finger joint of left hand follow package directions 21 tablet 11/27/19 23 Active valsartan-hydroCHLOROth iazide (DIOVAN-HCT) 160-25 MG per tabletIndications:Prima ry hypertension TAKE 1 TABLET BY MOUTH EVERY DAY 90 tablet 3 07/28/19 24 Active rosuvastatin (CRESTOR) 10 MG tabletIndications:Pure hypercholesterolemia TAKE 1 TABLET BY MOUTH EVERY DAY 30 tablet 1 03/16/20 24 Active Active Problems Problem Noted Date Diagnosed Date Dislocation of finger 11/12/2022 Stiffness of finger joint of left hand 3 Dyspnea 06/10/2022 Erectile dysfunction 06/10/2022 Essential familial hypercholesterolemia 06/11/19 23 Hyperglycemia 06/10/2022 Hypertension 06/10/2022 Hypogonadism, male 06/10/2022 Lumbar pain 06/10/2022 Testosterone deficiency 06/10/2022 Other cervical disc degeneration at C4-C5 level 04/13/2018 Encounters Date Type Department Care Team Description 05/20/2024 Refill [facility] Department of Internal Medicine [place] [address] [place] [address] Supriya Asif PA Pure hypercholesterolemia from Last 3 Months Immunizations Immunization Administration Dates Next Due Influenza, Quadrivalent (FLU [...] file Not on file Not on file Last Filed Vital Signs [...] , 03/01/2016, Additional history exists COVID-19 Vaccine (2023-2 5 season) 2023 02/07/2021, 07/14/2020, 06/23/2020 HIV [...] Ag/Ab, 4th Gen NON-REACT ESTEPHANIE NON-REACT ESTEPHANIE [employer] Comment: HIV-1 antigen and HIV-1/HIV-2 antibodies were [...] ?? For additional information please refer to http://education.[employer]/faq/EYQ335 (This link is being provided for informational/ educational purposes only.) The performance of this assay has not been clinically validated in patients less than 2 years old. 06/17/2022 9:56 AM EDT 06/17/2022 9:59 AM EDT [facility] - 06/17/2022 10:46 PM EDT FASTING:YES FASTING: YES us Supriya MONTE LAB BLOOD ORDERABLES Final Result [employer] [address] [place] [phone] * HEPATITIS C VIRUS (HCV) ANTIBODY (06/17/2022 9:56 AM EDT) Hepatitis C Antibody NON-REACT ESTEPHANIE NON-REACT ESTEPHANIE [employer] [facility] Hepatitis C Antibody (s/co) <0.02 <1.00 [employer] Comment: HCV antibody was non-reactive. There is no laboratory evidence of HCV infection. In most cases, no further action is required. However, if recent HCV exposure is suspected, a test for HCV RNA (test code 35369) is suggested. For additional information please refer to http://[employer].com.[employer]/faq/KML73g8 (This link is being provided for informational/ educational purposes only.) 06/17/2022 9:56 AM EDT 06/17/2022 9:59 AM EDT Narrative [facility] - 06/17/2022 10:46 PM EDT FASTING:YES FASTING: YES Supriya MONTE LAB BLOOD ORDERABLES Final Result [employer] [address] [place] [phone] from Last 3 Months or Most Recently Relevant to Health Maintenance Insurance [facility] Care Teams Specialty Cook Relationship Specialty Start Date End Date Supriya Asif PA [address] [place] [address] [facility] - General
--- OUTSIDE RECORDS SUMMARY | 2024-07-27 15:15 | XMS_ITS | Encounter Summary ---
Author Organization [facility] Address [address] [place] [address] Care Team Providers Care Aircraft Electronics Technical Officer Name Role Phone Supriya Asif Primary Care Provider +1- [phone] Encounter Details Date Type Department Care Team (Late st Contact Info) Description 04/19/2019 Scanned Document [facility] NEUROSURGERY SCAN Neurosurgery, Scan Social History Tobacco [...] on filedocumented in this encounter Care Teams Aircraft Electronics Technical Officer Relationship Specialty Start Date End Date Supriya Asif PA [address] [place] [address] PCP - General documented as of this encounter
--- OUTSIDE RECORDS SUMMARY | 2024-07-27 15:15 | XMS_ITS | Clinical Summary ---
Author Organization [facility] Address [address] [place] [address] Care Team Providers Care Shuttle Car Operator Name Role Phone Demarcus Aden MD Primary Care Provider [phone] Allergies Active Allergy Reactions Criticality Noted Date Comments Penicillins 08/18/2020 Medications Omeprazole (PriLOSEC OTC) 20 MG EC tablet Take 1 tablet 30-60 minutes before breakfast 30 3 1 Active famotidine (Famotidine Maximum Strength) 20 MG tablet TAKE 1 TABLET DAILY DIRECTED. 30 3 1 Active Active Problems Problem Noted Date Diagnosed Date Dyspnea 08/21/2020 Overview (05/04/2023): Impression - [id number]: - Head and neck exam including laryngoscopy essentially unremarkable with exception of signs of LPR. No paradoxical vocal fold motion noted on exam. I have a low suspicion of PVFMD as the source of his dyspnea. We did discuss that LPR can exacerbate underlying asthma/pulmonary issues.; - See LPR plan; - Recommended he [place] back to his PCP if he has not had recent EKG/cardiac work-up since onset of his symptoms. Impression - [id number]: - Head and neck exam including laryngoscopy essentially unremarkable with exception of signs of LPR. No paradoxical vocal fold motion noted on exam. I have a low suspicion of PVFMD as the source of his dyspnea given his symptom profile. We did discuss that LPR can exacerbate underlying asthma/pulmonary issues.; - See LPR plan; - Recommended he [place] back to his PCP if he has not had recent EKG/cardiac work-up since onset of his symptoms. Laryngopharyngeal reflux 08/18/2020 Overview (05/04/2023): Impression - [id number]: - I had an extensive discussion with the patient regarding their laryngeal examination and findings which are suggestive of laryngopharyngeal reflux. We discussed lifestyle modifications including dietary changes, weight loss and medical management. Patient provided with handout.; - Trial of Omeprazole 20 mg once daily and Famotidine 20 mg at bedtime to see if this improves his breathing symptoms. Impression - [id number]: - I had an extensive discussion with [...] age to complete this topic Care Teams Shuttle Car Operator Relationship Specialty Start Date End Date Demarcus Aden MD [address] [place] [address] PCP - General 11/04/22
== END 2024-07-27 13:50 | disposition home or self-care (01) ==
LOC: HO.HOS 13:12
PROVIDERS: PCP Family Medicine
DX: R20.0 Anesthesia of skin (principal); M25.641 Stiffness of right hand, not elsewhere classified; M25.642 Stiffness of left hand, not elsewhere classified
CPT/HCPCS: 99213

== ENCOUNTER 2024-07-27 13:11 | Outpatient (REF) | payer BC, SELFPAY ==
--- NOTE | ~2024-07-27 | XR_ITS ---
EXAMINATION: XR HAND/WRIST, RIGHT XR HAND/WRIST, LEFT CLINICAL INFORMATION: M79.643 - Pain in unspecified hand COMPARISON: None TECHNIQUE: PA, lateral, and oblique views of the each hand and wrist. FINDINGS: RIGHT HAND/WRIST: Normal osseous mineralization without periarticular osteopenia. No fracture, dislocation, or suspicious bone lesion. Normal alignment. Mild degenerative appearing arthritis in the first MCP joint. The PIP joints, DIP joints, remaining MCP joints, and carpal joints all appear otherwise grossly preserved. Mild spurring of the DRUJ. No ulnar styloid blunting. Normal-appearing soft tissues. LEFT HAND/WRIST: Normal osseous mineralization without periarticular osteopenia. No fracture, dislocation, or suspicious bone lesion. Normal alignment. Mild degenerative appearing arthritis in the first MCP joint. The PIP joints, DIP joints, remaining MCP joints, and carpal joints all appear otherwise grossly preserved. Mild spurring of the DRUJ. No ulnar styloid blunting. Normal-appearing soft tissues. XR/XR Hand Bilat min 3v IMPRESSION: 1. 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 2. Otherwise, normal bilateral hands and wrists. Electronically signed by: Hi Jimenez MD 07/30/2024 08:18 AM EDT
== END 2024-07-27 13:12 | disposition home or self-care (01) ==
LOC: HO.HOSX 13:11
PROVIDERS: PCP Family Medicine
DX: M79.643 Pain in unspecified hand (principal); M18.0 Bilateral primary osteoarthritis of first carpometacarpal joints
CPT/HCPCS: 73130

== ENCOUNTER → 2024-07-27 13:20 | Outpatient (BNV) | payer BC, SELFPAY | PROVIDERS: PCP Family Medicine; Visit Provider Radiology Diagnostic Radiology | DX: M79.641 Pain in right hand (principal); M79.642 Pain in left hand | CPT/HCPCS: 73110; 73130 ==

== ENCOUNTER 2024-09-07 12:22 | Outpatient (AMB) | payer BC, SELFPAY ==
--- NOTE | 2024-09-07 12:24 | A.OFFVIS_ITS ---
Vital Signs 09/07/24 12:25 Height 5 ft 7 in Weight 175 lb BMI 27.4 BP 130/75 Blood Pressure Location Lt brachial Position Sitting Pulse 84 Pulse Oximetry (%) 97 Oxygen Delivery Method Room Air Intake Visit Reasons: colo screen abd pain Intake Note: Patient new consult for abdominal pain and pre Colonoscopy screening. Hx diverticulitis. Patient cc: abdominal pain due hernia with bloating, soft stool, denies any other GI issues. Personal Financial Advisor Required: No Accompanied by: Self / Same As Patient Allergies Penicillins Allergy (Intermediate, Verified 09/07/24 12:24) Unknown Medication List - Last Reconciled 09/07/24 by Lyubov Dobson CNP bisacodyl 5 mg PO ONCE 1 day diclofenac sodium 1% (Aleve (diclofenac)) 2 grams topical BID 60 days methylcellulose (laxative) (Citrucel) 500 mg PO DAILY polyethylene glycol 3350 (Miralax) 238 grams PO ONCE valsartan-hydrochlorothiazide 160-25 mg tabs PO DAILY HPI HPI colo screen abd pain: Details: Patient is a 59-year-old male with PMH of hypertension and hyperlipidemia. He is referred by PCP for further evaluation of abdominal pain and pre colonoscopy screening. Patient presents for evaluation of persistent changes in bowel habits and abdominal discomfort following a first episode of diverticulitis in May 2024, which required hospitalization ([facility]) and antibiotic therapy. Reports ongoing left lower abdominal discomfort, described as non-painful but uncomfortable, worsened with a full bowel and often relieved after bowel movements. Occasional sense of incomplete evacuation, with stools ranging from soft to watery, sometimes with multiple attempts needed for complete relief; no overt constipation. Symptoms are not progressive. Shares hernia in left lower abdomen (inguinal) remains noticeable internally, though not evident externally, with mild discomfort after exertion or with increased intra-abdominal pressure. Denies right-sided abdominal pain. Notes intermittent heartburn for ~2 years, typically 1-2x/week, improved with calcium carbonate antacids, associated with dietary choices and alcohol intake. No current respiratory or genitourinary complaints. Reports back pain from prior disc injury, limiting ability to run, but remains physically active (biking, hiking). Patient denies: fever/chills, n/v, appetite changes, regurgitation,dysphasia, unintentional wt loss or melena/hematochezia. Social History - Diet: Primarily gluten free, dairy free (except occasional intake); high intake of meat/poultry, cooked vegetables, rice/potatoes; occasional lunch meats and salty snack foods; regular legumes (beans, chickpeas); cereal as snack at night; daily fruit (at least 1 serving), attempts to increase fiber. - Alcohol: Consumes ~4 standard drinks/day (primarily wine with meals and social beer); discusses efforts to reduce with PCP. - Tobacco: Remote use in twenties, none since. - Drug use: Occasional cannabis (smoked), no other recreational drugs. - Physical activity: Regular gym attendance (stationary bike, no running due to back injury), frequent hiking. - family hx as below - denies personal hx of CA - denies significant cardiopulmonary history -tolerated anesthesia in the past without difficulty. [facility] Medical History (Updated 09/07/24 @ 13:39 by Lyubov Dobson CNP) Acid reflux Change in stool Dislocated finger Testicular pain, left Breathing problem Sciatic leg pain Arthritis Back injury Low testosterone High blood pressure High blood cholesterol Surgical History History of vasectomy History of hernia repair Family History Father High blood pressure High cholesterol Prostate cancer Mother High blood pressure Brother High blood pressure High cholesterol Sister High blood pressure High cholesterol Social History Housing: House Patient Tobacco Use Status: Never used Tobacco e-Cigarette/Vaping Use: Never Used Second Hand Smoke Exposure: No Substance Use Type: Marijuana service: No Current occupational status: retired Current occupational exposures/hazards: No Cognitive needs: No Hearing needs: No Vision needs: Yes Review of Systems Const Reports as per HPI ENT Reports as per HPI Card Reports as per HPI Resp Reports as per HPI GI Reports as per HPI Reports as per HPI Physical Exam Vital Signs: Last Vital Signs Pulse 84 09/07/24 12:25 BP 130/75 09/07/24 12:25 Pulse Ox 97 09/07/24 12:25 Oxygen Delivery Method Room Air 09/07/24 12:25 BMI result Body Mass Index 27.4 Const General: healthy appearing, no acute distress and well developed Nutritional Appearance: well nourished Orientation/consciousness: patient oriented x3 HEENT Head: Yes normal to inspection, Yes normocephalic and Yes atraumatic Face and sinus: Yes normal facial exam Eyes General: appearance normal, both eyes and all related structures Neck Neck: Yes normal visual inspection Resp Effort & Inspection: normal respiratory effort, able to speak in complete sentences, no tracheal deviation and symmetric chest movement Auscultation: clear to auscultation bilaterally Cardio Jugular venous distension: no JVD Rate: regular rate Rhythm: regular rhythm Heart sounds: S1 normal heart sound present, S2 normal heart sound present, no gallops and no murmurs GI Inspection: Yes normal to inspection and No distended Palpation (GI): Soft to palpation, not firm, nontender, No hepatosplenomegaly present and no hernias (no palpable or visible hernial bulge with Valsalva or position changes) Auscultation: Hyperactive bowel sounds present Neuro General: patient oriented x3 Gait exam (Neuro): Normal gait present Psych Appearance: grossly normal Mental Status: mental status grossly normal Speech and movement: Normal speech and movement present Affect: normal affect Attitude: cooperative Thought process: Normal thought process present Thought content: Normal thought content present Insight: Good insight present (Psych) Judgement: Good judgement present (Psych) Assessment & Plan Assessment & Plan (1) Screening for colon cancer: Code(s): Z12.11 - Encounter for screening for malignant neoplasm of colon Category: Medical Plan: No prior colonoscopy or stool-based screening; age-appropriate. No current alarm symptoms but FH of other malignancy (prostate) and hx of diverticulosis. Diagnostic Tests: Prescriptions for laxative tablets and Miralax sent to pharmacy; instructions for Gatorade purchase and clear liquid diet given. Medications: - understands to hold oral NSAIDs 7 days prior to procedure. - Use Tylenol if needed for pain. Patient educated on procedure preparation, including avoiding certain foods and ensuring clear liquid intake. Advised on necessity for ride post-procedure due to sedation. (2) Change in stool: Code(s): R19.5 - Other fecal abnormalities Category: Medical Plan: Bowel habit changes s/p diverticulitis (May 2024), likely secondary to functional disturbance or slow motility following resolved infection, no alarming features. DDX: -IBS vs. post-diverticulitis colonic dysmotility -Chronic constipation with intermittent loose stool due to overflow or dietary variability -Hernia-related symptoms -Structural colonic disease (polyps/malignancy, less likely given recent CT findings and no red flags but screening warranted) Additional Tests: - CBC, iron studies to rule out anemia (pending) - TSH to rule out hypothyroidism (family hx, previous normal, recheck ordered) - CMP/lipids (ordered by PCP) Medications: - Fiber supplement oral daily, trial to increase stool bulk Lifestyle Modifications: - Increase dietary fiber (handout provided), titrate intake to goal w/o triggering recurrent diverticulitis. - Gradually increase hydration to >100oz water/day. - Maintain regular physical activity. - Limit alcohol; address with PCP for support. (3) Left inguinal hernia: Code(s): K40.90 - Unilateral inguinal hernia, without obstruction or gangrene, not specified as recurrent Category: Medical Plan: Incidentally found during 05/31/24 CT (see scanned imaging), non-reducible and not acutely symptomatic, elective repair previously discussed, monitoring for acute changes. Additional Tests: - None at this time; Pt aware to seek surgical care promptly if symptoms change (bulge, increased pain, signs of incarceration/strangulation). Lifestyle Modifications: - Avoid heavy lifting, straining. - Consider supportive hernia truss if engaged in activity triggering symptoms. - Schedule elective hernia repair as planned after endoscopy, barring acute changes. Follow-Up: - Surgery referral remains open; urgent surgical evaluation if obstructive or ischemic symptoms. (4) Acid reflux: Code(s): K21.9 - Gastro-esophageal reflux disease without esophagitis Category: Medical Qualifiers: Esophagitis presence: esophagitis presence not specified Qualified Code(s): K21.9 - Gastro-esophageal reflux disease without esophagitis Plan: mild, intermittent heartburn, responsive to antacids. No classic alarm symptoms. Additional Tests: - Upper endoscopy concurrent with colonoscopy Medications: - Calcium carbonate 500-1000mg oral PRN Lifestyle Modifications: - Avoid trigger foods (dairy, alcohol, late meals). - limit alcohol Follow-Up: - If GERD worsens or frequency increases, will consider empiric PPI Plan follow up after endoscopy or sooner as needed Time: I spent a total of 50 minutes on the date of encounter which includes: Preparing to see the patient (reviewed previous documentation, test results and medical history) Performing a medically appropriate exam and/or evaluation Ordering medications, tests, and procedures Documenting clinical information in the health record Orders: Orders Complete Blood Count Auto Diff Today Z01.812 - Encounter for preprocedural laboratory examination IRON PROFILE Today Z01.812 - Encounter for preprocedural laboratory examination TSH reflex Free T4 Today R19.5 - Other fecal abnormalities Medications: New bisacodyl Take four tablets once for 1 day per colonoscopy instructions 5 mg PO ONCE 1 day 4 tabs 0RF polyethylene glycol 3350 (Miralax) per colonoscopy prep instructions 238 grams PO ONCE 238 grams 0RF methylcellulose (laxative) (Citrucel) 500 mg PO DAILY 90 tabs 1RF Coding Level of Care Code New Pt New Pt Level 5 (95277) Patient Type New Diagnoses Screening for colon cancer Z12.11 Change in stool R19.5 Left inguinal hernia K40.90 Gastroesophageal reflux disease, unspecified whether esophagitis present K21.9 Esophagitis presence: esophagitis presence not specified
[2024-09-07 12:25] VITALS: BP 130/75; PULSE 84; O2SAT 97; BMI 27.4
--- OUTSIDE RECORDS SUMMARY | 2024-09-07 14:34 | XMS_ITS | Clinical Summary ---
Author Organization [facility] Address [address] [place] [address] Care Team Providers Care Quill Buncher And Sorter Name Role Phone Renzo Yeh MD Primary [...] (1 o f 2) 01/13/2016 COVID-19 Vaccine (3 2023-2 5 season) 2023 07/14/2020, 06/23/2020 Influenza Vaccine (Season Ended) 2024 Pneumococcal Vaccine Aged Out No long er eligible based on patient's age to complete this topic RSV Ped < 20 months Aged Out No longe r eligible based on patient's age to complete this topic Care Teams Quill Buncher And Sorter Relationship Specialty Start Date End Date Renzo Yeh MD PCP - General Internal Medicine 07/11/17
== END 2024-09-07 13:20 | disposition home or self-care (01) ==
LOC: HO.HGI 12:23
PROVIDERS: PCP Family Medicine; Visit Provider Nurse Practitioner Family
DX: K40.90 Unilateral inguinal hernia, without obstruction or gangrene, not specified as recurrent (principal); R19.5 Other fecal abnormalities; K21.9 Gastro-esophageal reflux disease without esophagitis; Z01.818 Encounter for other preprocedural examination; Z12.11 Encounter for screening for malignant neoplasm of colon
CPT/HCPCS: 99205

== ENCOUNTER 2024-09-08 08:24 | Outpatient (REF) | payer BC, SELFPAY ==
--- OUTSIDE RECORDS SUMMARY | 2024-09-08 08:34 | XMS_ITS | Data Portability ---
Author Organization [place] [facility], Main Office Address [address] [place] [address] Care Team Providers Care Jig Boring Machine Set Up Operator Name Role Phone PROMISEBARRYAH Primary Care Provider [...] By Organization Details Last Modified Time 04/13/2018 [id number] Zay is here f or neurosurgical evaluation [...] has not undergone any recent physical therapy, acute care certified nursing assistant or acupuncture. He has taken nuxl-bla-guonkmg anti-inflammatorie s with some improvement. On examination [...] intervertebral disc Referring Physician: Manny Hernandez, Physician Boardinghouse Keeper, Encounter Date: 04/13/2018 Problems Name Problem SNOMED Code Status Onset Date Resolution Date Notes Provider Name and Address Organization Details Recorded Time Degeneration of lumbar intervertebra l disc 99318843 Active 2018 Manny Hernandez PA-C [address], [place], [address], [place] [facility] 9 16:43:41 Degeneration of cervical intervertebra l disc 26548391 Active 2018 Manny Hernandez PA-C [address], [place], [address], [place] [facility] 9 16:43:42 Degeneration of thoracic intervertebra l disc 09325566 Active 2018 Manny Hernandez PA-C [address], [place], [address], [place] [facility] 9 16:43:43 Problem Notes None recorded. Medical Equipment None Reported. Allergies Allergen ID Allergen Name Allergen Category Reaction Reaction Severity Criticality Documentation Date Start Date Code Code System Note Provider Name and Address Organization Details Recorded Time 4326 Product containin g penicilli n (product) medicatio n Not available Not available Not available 04/13/2018 44911 8001 SNOMED Rebecca Max [facility], [place] [facility] 9 15:20:03 Medications Name [...] 04/13/2018 171.45 cm 98.2 [degF] 27 kg/m2 [address]952.[address] [facility] 04/13/2018 16:03:29 Social History Question Answer Notes LastModified by [employer] Details LastModified Time Tobacco Smoking Status Former Smoker Rebecca Max [facility], [facility] 04/13/2018 15:25:02 What Is Your Level Of Caffeine Consumption? Moderate Information not available 04/13/2018 What Was The Date Of Your Most Recent Tobacco Screening? 04/13/2018 Information not available 10/21/2018 Sex: Male Functional Status Question Answer Note LastModified by [employer] Details LastModified Time What is your level of alcohol consumption? 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 Family History Relationship Description Onset Age of this Age Resolved Age Notes LastModified by Organization Details LastModified Time Father Hypertensive disorder [email or web address] Not available 04/13 15:24:22 Father Hypercholest erolemia [email or web address] Not available 04/13 15:24:34 Mother Disorder of thyroid gland [email or web address] Not available 04/13 15:24:54 Sister Disorder of thyroid gland [email or web address] Not available 04/13 15:24:54 Medical History Condition Response Coronary Artery Disease N Other N Anxiety/Depression N Parkinson's Disease N MRSA N Head Trauma/Injury N Brain Tumors N Anemia N PTSD N Multiple Sclerosis N Meningitis N Spine/Back Problems Y Heart Attack ([place]) N Neurological Problems N Anxiety Disorder N [...] SNOMED-CT Code Diagnosis ICD10 Code Diagnosis Note [id number] Manny Hernandez PA-C Main Office [address] [place] [address] 04/13/2018 15:01:05 04/13/2018 15:56:08 Degeneration of lumbar intervertebral disc 21036457 M51.36 Degenerati on of cervical intervertebral disc 53238463 M50.30 Degenerati on of thoracic intervertebral disc 25272353 M51.34 Health Concerns Section Related Observation LastModified by Organization Detai ls LastModified Time None Recorded Concern Status LastModified by Organization Details LastModified Time None Recorded Advance Directives Directive None Recorded Payers Encounter Date Sequence Insurance Name Policy Number Policy Jarvis Covered Member ID Jarvis Member ID Guarantor Name 04/13/2018 1 [employer] (POS) [id number] Zay Raines [id number] Zay Raines Notes Date Note Type [...] leg; no fever Previous Surgery:none Prior Imaging:MRI ([facility] lumbar spine 12/23/2017) Previous Injections:none Previous PT:none (recent) 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
[2024-09-08 11:26] LABS: MANUAL DIFF FLAG NO
[2024-09-08 11:37] LABS: Basophils Percent Auto 0.4 % (0-2); Eosinophils Absolute Auto 0.1 X10*3/uL (0.0-0.4); Eosinophils Percent Auto 0.8 % (0-4); Hematocrit 37.9 % (42.0-52.0); Imm Gran Abs Auto 0.02 X10*3/uL (0.00-0.03); Imm Gran Pct Auto 0.3 % (0.0-0.4); Lymphocytes Absolute Auto 1.1 X10*3/uL (1.2-4.9); Lymphocytes Percent Auto 15.8 % (20-40); Mean Corpuscular HGB Conc 34.3 g/dl (31.0-36.0); Mean Corpuscular Hemoglobin 32.7 pg (27.0-33.0); Mean Corpuscular Volume 95.2 fL (80.0-98.0); Mean Platelet Volume 10.1 fL (9.4-12.4); Monocytes Absolute Auto 0.4 X10*3/uL (0.1-1.2); Monocytes Percent Auto 6.2 % (2-11); Neutrophils Absolute Auto 5.4 x10*3/uL (2.0-8.3); Neutrophils Percent Auto 76.5 % (45-73); Platelet Count 227 X10*3/uL (160-400); Red Blood Count 3.98 X10*6/uL (4.60-5.80); Red Cell Distribution Width 12.2 % (11.0-16.0); White Blood Count 7.1 X10*3/uL (4.8-10.8)
[2024-09-08 11:58] LABS: Alanine Aminotransferase 22 U/L (0-40); Albumin Level 4.6 g/dL (3.5-5.0); Alkaline Phosphatase 60 U/L (39-117); Anion Gap 11 (12-20); Aspartate Amino Transferase 31 U/L (5-37); Bilirubin Total 0.9 mg/dL (0.0-1.0); Blood Urea Nitrogen 14 mg/dL (9-16); Calcium 8.8 mg/dL (8.4-10.2); Carbon Dioxide 28 mmol/L (22-29); Chloride 99 mmol/L (96-108); Cholesterol 220 mg/dL (<200); Estimated Glomerular Filt Rate > 60; Glucose Fasting 96 mg/dL (60-99); HDL Cholesterol 46 mg/dL (>40); Iron 154 mcg/dL (45-160); LDL Cholesterol Calculated 132 mg/dL (<100); Percent Iron Saturation 53 % (15-50); Potassium 3.8 mmol/L (3.3-5.1); Sodium 134 mmol/L (135-145); Total Iron Binding Capacity 289 mcg/dL (228-428); Total Protein 6.7 g/dL (6.5-8.0); Triglycerides 210 mg/dL (<150); Unsaturated Iron Binding 135 ug/dL
[2024-09-08 12:11] LABS: TSH reflex Free T4 2.05 uIU/mL (0.32-4.0)
== END 2024-09-08 08:25 | disposition home or self-care (01) ==
LOC: HO.WFDLDS 08:24
PROVIDERS: Referring Provider Nurse Practitioner Family; Visit Provider Family Medicine
DX: Z00.00 Encounter for general adult medical examination without abnormal findings (principal); Z01.812 Encounter for preprocedural laboratory examination; E78.5 Hyperlipidemia, unspecified; R19.5 Other fecal abnormalities
CPT/HCPCS: 36415; 80053; 80061; 83540; 84443; 85025

== ENCOUNTER 2024-11-01 14:44 | Outpatient (AMB) | payer BC, SELFPAY ==
--- NOTE | 2024-11-01 14:47 | MHC.PC.OV ---
Vital Signs 11/01/24 14:48 Height 5 ft 7 in Weight 174 lb 2 oz BMI 27.3 BP 130/76 Blood Pressure Location Rt brachial Position Sitting Respiration 16 Pulse 84 Pulse Source Pulse Oximeter Temp 98.2 F Temp Source Oral Pulse Oximetry (%) 97 Oxygen Delivery Method Room Air Intake Visit Reasons: f/u HLD, HTN Allergies Penicillins Allergy (Intermediate, Verified 11/01/24 14:50) Unknown Medication List - Last Reconciled 11/01/24 by Evan Livingston MD bisacodyl 5 mg PO ONCE 1 day diclofenac sodium 1% (Aleve (diclofenac)) 2 grams topical BID 60 days methylcellulose (laxative) (Citrucel) 500 mg PO DAILY polyethylene glycol 3350 (Miralax) 238 grams PO ONCE valsartan-hydrochlorothiazide 160-25 mg tabs PO DAILY Tobacco use date assessed: 11/01/24 Dental Screening Dental Screen Date: 11/01/24 Did you have a dental visit in the last 12 months?: Yes Did you have a dental problem in the last 6 months where you did not have access to dental care?: No Was dental information given to patient?: Patient has dentist HPI f/u HLD, HTN HPI Details 59 y/o male presents to f/u HLD, HTN. BP today 130/76, 84p. He is on valsartan-HCTZ 160-25mg daily. Labs drawn 09/08/24. Reviewed labs with pt. Triglycerides 210. TC 220. LDL 132. HDL 46. PFSH Medical History Acid reflux Change in stool Dislocated finger Testicular pain, left Breathing problem Sciatic leg pain Arthritis Back injury Low testosterone High blood pressure High blood cholesterol Surgical History History of vasectomy History of hernia repair Family History Father High blood pressure High cholesterol Prostate cancer Mother High blood pressure Brother High blood pressure High cholesterol Sister High blood pressure High cholesterol Social History Housing: House Patient Tobacco Use Status: Never used Tobacco e-Cigarette/Vaping Use: Never Used Second Hand Smoke Exposure: No Substance Use Type: Marijuana service: No Current occupational status: retired Current occupational exposures/hazards: No Cognitive needs: No Hearing needs: No Vision needs: Yes Questionnaire PHQ-9 Over the last 2 weeks, how often have you been bothered by any of the following problems? 1. Little interest or pleasure in doing things: not at all 2. Feeling down, depressed, or hopeless: not at all 3. Trouble falling or staying asleep, or sleeping too much: more than half the days 4. Feeling tired or having little energy: more than half the days 5. Poor appetite or overeating: nearly every day 6. Feeling bad about yourself - or that you are a failure or have let yourself or your family down: not at all 7. Trouble concentrating on things, such as reading the newspaper or watching television: not at all 8. Moving or speaking so slowly that other people could have noticed. Or the opposite - being so fidgety or restless that you have been moving around a lot more than usual: not at all 9. Thoughts that you would be better off or of hurting yourself in some way: not at all Total score: 7 Depression Screening Interpretation: Positive Depression Screening Done: Yes Source: Developed by Drs. Ricky Baxter, Mary Jo Ascencio, Griffin Timmons and colleagues, with an educational moe from [employer]. Thrive Questionnaire Date Thrive assessed: 05/24/24 I am a: Patient What is your living situation today?: I have a steady place to live Within the past 12 months, did the food you bought not last and you didn't have the money to get more?: Never true Within the past 12 months, did you worry whether your food would run out before you got money to buy more?: Never true Do you have trouble paying for medicines?: No Do you have trouble getting transportation to medical appointments?: No Do you have trouble paying your heating and electricity bill?: No Do you have trouble taking care of your child, family member or friend?: No Do you have trouble with day-to-day activities such as bathing, preparing meals, shopping, managing finances, etc.?: No Are you currently unemployed and looking for a job?: No Are you interested in more education?: No Please select the resources that you would like help with: None Currently or been in a relationship where the following occur: No concerns reported THRIVE Score: 0 AUDIT C Alcohol Use Questionnaire (AUDIT-C) 1. How often do you have a drink containing alcohol?: 4 or more times a week 2. How many drinks containing alcohol do you have on a typical day when you are drinking?: 3 or 4 3. How often do you have six or more drinks on one occasion?: Weekly Total Score: 8 MARIA L-7 AMB Questionnaire MARIA L-7 Date MARIA L - 7 assessed: 05/25/24 Feeling nervous, anxious, or on edge: 0 = Not at all Not being able to stop or control worryin = Not at all Worrying too much about different things: 0 = Not at all Trouble relaxin = Not at all Being so restless that it is hard to sit still: 0 = Not at all Becoming easily annoyed or irritable: 0 = Not at all Feeling afraid as if something awful might happen: 0 = Not at all Total MARIA L-7 score (0-4 normal; 5-9 mild; 10-14 moderate; 15-21 severe): 0 Source: Developed by Drs. Ricky Baxter, Mary Jo Ascencio, Griffin Timmons and colleagues, with an educational moe from [employer]. Review of Systems Const Denies chills, Denies fatigue, Denies fever(s), Denies headache(s) and Denies weakness ENT Denies dizziness and Denies headache(s) Card Denies chest pain, Denies lightheadedness, Denies dyspnea and Denies other (Palpitations) Resp Denies cough, Denies dyspnea, Denies wheezing and Denies other ( shortness of breath) Musc Denies numbness and Denies tingling Neuro Denies dizziness, Denies headache(s), Denies numbness, Denies tingling, Denies paresthesias and Denies weakness Psych Denies anxiety and Denies depression Endo Denies fatigue Aller/Immun Denies wheezing Physical exam (Primary Care) Vital Signs: Last Vital Signs Temp 98.2 F 11/01/24 14:48 Pulse 84 11/01/24 14:48 Resp 16 11/01/24 14:48 BP 130/76 11/01/24 14:48 Pulse Ox 97 11/01/24 14:48 Oxygen Delivery Method Room Air 08/04/25 14:48 BMI result Body Mass Index 27.3 Tobacco/Smoking Status: Tobacco use Status Tobacco use date assessed 11/01/24 11/01/24 14:53 Patient Tobacco Use Status Never used Tobacco 11/01/24 14:53 e-Cigarette/Vaping Use Never Used 11/01/24 14:53 PHQ-9: PHQ-9 Score PHQ-9: Total score 7 11/01/24 15:06 Depression Screening Interpretation: Positive Thrive Assessment: Date of Thrive Assessment Date Thrive assessed 05/24/24 11/01/24 14:53 Currently or been in a relationship where the following occur: No concerns reported Const General: no acute distress and well developed Nutritional Appearance: well nourished Orientation/consciousness: patient oriented x3 HENMT Head: Yes normocephalic and Yes atraumatic Eyes General: appearance normal, both eyes and all related structures Pupils: Equal, round and reactive pupils present EOM: EOMs intact bilaterally Resp Effort & Inspection: normal respiratory effort Auscultation: clear to auscultation bilaterally Cardio Rate: regular rate Rhythm: regular rhythm Heart sounds: S1 normal heart sound present, S2 normal heart sound present, no gallops, no murmurs and no rubs Neuro General: patient oriented x3 and gait normal Cranial nerves: Yes Equal, round and reactive pupils present Psych Affect: normal affect Coding Level of Care Code Est Pt Level 3 (32336) Diagnoses High blood pressure I10 Hyperlipidemia E78.5 Assessment & Plan Assessment & Plan (1) High blood pressure: Code(s): I10 - Essential (primary) hypertension Category: Medical Plan: Blood pressure is controlled. Goal is less than 140/90 Continue current medication Encouraged a diet lower in salt/sodium Encouraged weight loss and exercise (2) Hyperlipidemia: Code(s): E78.5 - Hyperlipidemia, unspecified Category: Medical Plan: LDL cholesterol is still too high despite working on a diet lower in saturated fats and cholesterol Goal is less 100 Will start atorvastatin Will recheck lipids prior to next visit and discuss Orders: Orders Lipid Panel Today E78.5 - Hyperlipidemia, unspecified, Z00.00 - Encounter for general adult medical examination without abnormal findings Comprehensive [place]. Panel Fast Today E78.5 - Hyperlipidemia, unspecified, Z00.00 - Encounter for general adult medical examination without abnormal findings Medications: New atorvastatin (Lipitor) 10 mg PO BEDTIME 90 tabs 3RF 90 days
--- OUTSIDE RECORDS SUMMARY | 2024-11-01 14:47 | XMS_ITS | Encounter Summary ---
Author Organization [facility] Address [address] [place] [address] Care Team Providers Care Materials Handling Coordinator Name Role Phone Supriya Asif Primary Care Provider [phone] Reason for Visit * Reason Comments Medication Refill Encounter Details Date Type Department Care Team (Late st Contact Info) Description 05/20/2024 Refill [facility] Department of Internal Medicine [place] [address] [place] [phone] Supriya Asif PA [address] [place] [address] Pure hypercholesterolemia Social History Tobacco Use Types [...] this encounter Visit Diagnoses Diagnosis Pure hypercholesterolemia Pure hypercholesterolemia documented in this encounter Care Teams Materials Handling Coordinator Relationship Specialty Start Date End Date Supriya Asif PA [address] [place] [address] PCP - General documented as of this encounter
--- OUTSIDE RECORDS SUMMARY | 2024-11-01 14:47 | XMS_ITS | Clinical Summary ---
Author Organization [facility] Address [address] [place] [address] Care Team Providers Care Physical Medicine Teacher Name Role Phone Demarcus Aden MD Primary Care Provider [phone] Allergies Active Allergy Reactions Criticality Noted Date Comments Penicillins 08/18/2020 Medications Omeprazole (PriLOSEC OTC) 20 MG EC tablet Take 1 tablet 30-60 minutes before breakfast 30 3 1 Active famotidine (Famotidine Maximum Strength) 20 MG tablet TAKE 1 TABLET DAILY DIRECTED. 30 3 1 Active Active Problems Problem Noted Date Diagnosed Date Dyspnea 08/21/2020 Overview (05/04/2023): Impression - [id number]: - Head and neck exam including laryngoscopy essentially unremarkable with exception of signs of LPR. No paradoxical vocal fold motion noted on exam. I have a low suspicion of PVFMD as the source of his dyspnea. We did discuss that LPR can exacerbate underlying asthma/pulmonary issues.; - See LPR plan; - Recommended he [place] back to his PCP if he has not had recent EKG/cardiac work-up since onset of his symptoms. Impression - [id number]: - Head and neck exam including laryngoscopy essentially unremarkable with exception of signs of LPR. No paradoxical vocal fold motion noted on exam. I have a low suspicion of PVFMD as the source of his dyspnea given his symptom profile. We did discuss that LPR can exacerbate underlying asthma/pulmonary issues.; - See LPR plan; - Recommended he [place] back to his PCP if he has not had recent EKG/cardiac work-up since onset of his symptoms. Laryngopharyngeal reflux 08/18/2020 Overview (05/04/2023): Impression - [id number]: - I had an extensive discussion with the patient regarding their laryngeal examination and findings which are suggestive of laryngopharyngeal reflux. We discussed lifestyle modifications including dietary changes, weight loss and medical management. Patient provided with handout.; - Trial of Omeprazole 20 mg once daily and Famotidine 20 mg at bedtime to see if this improves his breathing symptoms. Impression - [id number]: - I had an extensive discussion with [...] - 2023-2 5 season) 2023 Influenza (#1) 2024 HPV Vaccine (No Doses Required) Completed Hep A Aged Out No longer eligi ble based on patient's age to complete this topic Hib Aged Out No longer eligi ble based on patient's age to complete this topic Meningococcal ACWY Aged Out No longer eligible based on patient's age to complete this topic Care Teams Physical Medicine Teacher Relationship Specialty Start Date End Date Demarcus Aden MD [address] [place] [address] [facility] - General 11/04/22
--- OUTSIDE RECORDS SUMMARY | 2024-11-01 14:47 | XMS_ITS ---
Author Name [facility] Organization Unknown History of Medication Use Medication Directions Dispensed Refills Start Date End Date Stat us valsartan-hydroCHLO ROthiazide (DIOVAN-HCT) 160-25 MG per tablet Take 1 tablet by mouth daily. 06/10/2022 active rosuvastatin (CRESTOR) 10 MG tablet TAKE 1 TABLET BY MOUTH EVERY DAY 06/07/2022 active testosterone (ANDROGEL) 20.25 mg/pump (1.62%) transdermal gel testosterone 20.25 mg/1.25 gram per pump act.(1.62 %) transdermal gel 11/12/2022 active Allergies Allergen Reaction Severity Comment Documented Date Source Statu s PENICILLINS UNKNOWN/PATIENT AND FAMILY UNABLE TO DEFINE 04/13/2018 [facility] active Problems Problem Status Onset Date Problem Type Date of Resolution Source Hypertension active 2022-06-10 ProblemAct [facility] Essential familial hypercholesterolemia active 2022-06-10 ProblemAct [facility] Lumbar pain active 2022-06-10 ProblemAct [facility] Dyspnea active 2022-06-10 ProblemAct [facility] Dislocation of finger active 2022-11-12 ProblemAct [facility] Other cervical disc degeneration at C4-C5 level active 2018-04-13 ProblemAct [facility] Stiffness of finger joint of left hand active 2022-11-12 ProblemAct [facility] Hyperglycemia active 2022-06-10 ProblemAct [facility] Erectile dysfunction active 2022-06-10 ProblemAct [facility] Dislocation of finger, sequela active EncounterDiagnosisAct [facility] Hypogonadism, male active 2022-06-10 ProblemAct [facility] Immunizations Vaccine Date Source Lot Number Status Influenza Inactivated Lai valent Preservative Free IM 02/06/2021 [facility] [id number] completed Influenza Inactivated Lai valent Preservative Free IM 01/13/2020 [facility] completed Influenza Inactivated Lai valent Preservative Free IM 03/01/2016 [facility] [id number] completed Influenza, Unspecified 2012 CCT co mpleted Encounters Encounter Type Encounter Reason Primary Diagnosis Location Date Ambulatory Unspecified dislocation of unspecified finger, sequela Unspecified dislocation of unspecified finger, sequela [facility] 11/26/2022 [facility] 11/12/2022 Ambulatory Pain in left finger(s) Pain in left finger(s) [facility] 11/12/2022 Ambulatory Encounter for general adult medical examination without abnormal findings [facility] 06/10/2022 Care Team Organization Name Specialty Phone Email Start Date End Da te [facility] 06/10/2022 06/10/2022 [facility] 06/10/2022 [facility]
--- OUTSIDE RECORDS SUMMARY | 2024-11-01 14:47 | XMS_ITS | Clinical Summary ---
Author Organization [facility] Address [address] [place] [address] Care Team Providers Care Electronic Device Repairer Name Role Phone Renzo Yeh MD Primary [...] - 2023-2 5 season) 2023 07/14/2020, 06/23/2020 Depression Screening 03/31/2024 Influenza Vaccine (#1) 2024 HIB Vaccines Aged Out No longer [...] age to complete this topic Care Teams Electronic Device Repairer Relationship Specialty Start Date End Date Renzo Yeh MD [address] [facility] [address] [place] [address] PCP - General Internal Medicine 07/11/17
--- OUTSIDE RECORDS SUMMARY | 2024-11-01 14:47 | XMS_ITS | Clinical Summary ---
Author Organization [facility] Address [address] [place] [address] Care Team Providers Care Transmission Tester Name Role Phone Renzo Yeh MD Primary [...] season) 2023 07/14/2020, 06/23/2020 Influenza Vaccine (#1) 2024 Pneumococcal Vaccine Aged Out No long er eligible based on patient's age to complete this topic RSV Ped < 20 months Aged Out No longe r eligible based on patient's age to complete this topic Care Teams Transmission Tester Relationship Specialty Start Date End Date Renzo Yeh MD PCP - General Internal Medicine 07/11/17
[2024-11-01 14:48] VITALS: BP 130/76; PULSE 84; RESP 16; TEMP 36.8; O2SAT 97; BMI 27.3
== END 2024-11-01 15:18 | disposition home or self-care (01) ==
LOC: HO.HMCFM 14:45
PROVIDERS: PCP Family Medicine; Visit Provider Family Medicine
DX: I10 Essential (primary) hypertension (principal); E78.5 Hyperlipidemia, unspecified

== ENCOUNTER 2024-11-04 13:40 | Outpatient (REF) | payer BC, SELFPAY ==
--- NOTE | 2024-11-04 13:42 | EMG_ITS ---
Chief complaint: Left 4th and 5th digit numbness Reason for referral: Evaluate for ulnar neuropathy Referred by: Leandro MONTE Procedure done: Left upper extremity NCS/EMG Precautions and/or limitations: None The limb temperature was monitored continuously and remained between 32-36 degrees C during the performance of the NCS. Nerve Conduction Studies Anti Sensory Summary Table ?Stim Site NR Onset (ms) Norm Onset (ms) Peak (ms) Norm Peak (ms) O-P Amp (?V) Norm O-P Amp Site1 Site2 Delta-0 (ms) Dist (cm) Rainer (m/s) Norm Rainer (m/s) Left Median Anti Sensory (2nd Digit) Wrist ? 2.4 3.0 <3.6 64.3 >10 Wrist 2nd Digit 2.4 14.0 58 Left Ulnar Anti Sensory (5th Digit) Wrist ? 2.4 3.2 <3.7 28.9 >15.0 Wrist 5th Digit 2.4 14.0 58 Motor Summary Table ?Stim Site NR Onset (ms) Norm Onset (ms) O-P Amp (mV) Norm O-P Amp iAmp (mV) Amp (1st) (%) Site1 Site2 Delta-0 (ms) Dist (cm) Rainer (m/s) Norm Rainer (m/s) Left Median Motor (Abd Poll Brev) Wrist ? 3.0 <3.9 9.8 >4.5 12.8 100.0 Elbow Wrist 4.0 22.0 55 >45 Elbow ? 7.0 9.5 12.2 96.9 Left Ulnar Motor (Abd Dig Minimi) Wrist ? 3.0 <3.0 10.8 >5 13.8 100.0 B Elbow Wrist 3.7 21.0 57 >45 B Elbow ? 6.7 9.9 12.2 91.7 A Elbow B Elbow 1.9 10.0 53 >45 A Elbow ? 8.6 9.4 11.8 87.0 Comparison Summary Table ?Stim Site NR Peak (ms) Norm Peak (ms) P-T Amp (?V) Site1 Site2 Delta-P (ms) Norm Delta (ms) Left Median/Radial Dig I Comparison (Digit 1 - 10cm) Median ? 2.6 <2.9 86.0 Median Radial -0.3 Radial ? 2.9 <2.8 81.4 EMG ?Side Muscle Nerve Root Ins Act Fibs Psw Amp Dur Poly Recrt Int Pat Comment Left 1stDorInt Ulnar C8-T1 Nml Nml Nml Nml Nml 0 Nml Complete Left FlexCarRad Median C6-7 Nml Nml Nml Nml Nml 0 Nml Complete Left Biceps Musculocut C5-6 Nml Nml Nml Nml Nml 0 Nml Complete Left Triceps Radial C6-7-8 Nml Nml Nml Nml Nml 0 Nml Complete Left Deltoid Axillary C5-6 Nml Nml Nml Nml Nml 0 Nml Complete FINDINGS: All motor and sensory nerves tested showed normal latencies, amplitudes and conduction velocities. Concentric needle EMG was performed in selected muscles of the left upper extremity. Study did not reveal signs of electric abnormalities as shown in the table above. IMPRESSION: 1. This is a normal study. 2. There is no electrodiagnostic evidence for median neuropathy, ulnar neuropathy, brachial plexopathy, or cervical radiculopathy. Thank you for your kind referral. Dari Partida MD, SIMEON Board Certified, [place] Board of Physical Medicine and Rehabilitation (ABPMR) Board Certified, [place] Board of Electrodiagnostic Medicine (ABEM) CODIN [id number] MTDD
--- OUTSIDE RECORDS SUMMARY | 2024-11-04 13:43 | XMS_ITS | Encounter Summary ---
Author Organization [facility] Address [address] [place] [address] Care Team Providers Care Box Office Attendant Name Role Phone Supriya Asif Primary Care Provider [phone] Reason for Visit * Reason Comments Medication Refill Encounter Details Date Type Department Care Team ([facility] st Contact Info) Description 05/20/2024 Refill [facility] Department of Internal Medicine [place] [address] [place] [phone] Supriya Asif PA [address] [place] [address] Pure hypercholesterolemia Social History Tobacco Use Types [...] hypercholesterolemia documented in this encounter Care Teams Box Office Attendant Relationship Specialty Start Date End Date Supriya Asif PA [address] [place] [address] PCP - General documented as of this encounter
--- OUTSIDE RECORDS SUMMARY | 2024-11-04 13:43 | XMS_ITS | Clinical Summary ---
Author Organization [facility] Address [address] [place] [address] Care Team Providers Care Thermometer Production Worker Name Role Phone Renzo Yeh MD Primary Care Provider [phone] Social History Tobacco Use Types Packs/Day Years [...] age to complete this topic Care Teams Thermometer Production Worker Relationship Specialty Start Date End Date Renzo Yeh MD [address] [facility] [place] [address] [place] [address] PCP - General Internal Medicine 07/11/17
--- OUTSIDE RECORDS SUMMARY | 2024-11-04 13:43 | XMS_ITS | Clinical Summary ---
Author Organization [facility] Address [address] [place] [address] Care Team Providers Care Pot Press Operator Name Role Phone Demarcus Aden MD Primary Care Provider [phone] Allergies Active Allergy Reactions Criticality Noted Date Comments Penicillins 08/18/2020 Medications Omeprazole (PriLOSEC OTC) 20 MG EC tablet Take 1 tablet 30-60 minutes before breakfast 30 3 1 Active famotidine (Famotidine Maximum Strength) 20 MG tablet TAKE 1 TABLET DAILY DIRECTED. 30 3 1 Active Active Problems Problem Noted Date Diagnosed Date Dyspnea 08/21/2020 Overview (05/04/2023): Impression - [id number]: - Head and neck exam including laryngoscopy essentially unremarkable with exception of signs of LPR. No paradoxical vocal fold motion noted on exam. I have a low suspicion of PVFMD as the source of his dyspnea. We did discuss that LPR can exacerbate underlying asthma/pulmonary issues.; - See LPR plan; - Recommended he [place] back to his PCP if he has not had recent EKG/cardiac work-up since onset of his symptoms. Impression - [id number]: - Head and neck exam including laryngoscopy essentially unremarkable with exception of signs of LPR. No paradoxical vocal fold motion noted on exam. I have a low suspicion of PVFMD as the source of his dyspnea given his symptom profile. We did discuss that LPR can exacerbate underlying asthma/pulmonary issues.; - See LPR plan; - Recommended he [place] back to his PCP if he has not had recent EKG/cardiac work-up since onset of his symptoms. Laryngopharyngeal reflux 08/18/2020 Overview (05/04/2023): Impression - [id number]: - I had an extensive discussion with the patient regarding their laryngeal examination and findings which are suggestive of laryngopharyngeal reflux. We discussed lifestyle modifications including dietary changes, weight loss and medical management. Patient provided with handout.; - Trial of Omeprazole 20 mg once daily and Famotidine 20 mg at bedtime to see if this improves his breathing symptoms. Impression - [id number]: - I had an extensive discussion with [...] age to complete this topic Care Teams Pot Press Operator Relationship Specialty Start Date End Date Demarcus Aden MD [address] [place] [address] [facility] - General 11/04/22
--- OUTSIDE RECORDS SUMMARY | 2024-11-04 13:43 | XMS_ITS | Clinical Summary ---
Author Organization [facility] Address [address] [place] [address] Care Team Providers Care Cytogenetics Laboratory Manager Name Role Phone Renzo Yeh MD Primary [...] age to complete this topic Care Teams Cytogenetics Laboratory Manager Relationship Specialty Start Date End Date Renzo Yeh MD PCP - General Internal Medicine 07/11/17
== END 2024-11-04 13:41 | disposition home or self-care (01) ==
LOC: HO.NEURO 13:40
PROVIDERS: PCP Family Medicine
DX: R20.0 Anesthesia of skin (principal); R20.2 Paresthesia of skin
CPT/HCPCS: 95886; 95909

== ENCOUNTER → 2024-11-04 13:42 | Outpatient (BNV) | payer BC, SELFPAY | PROVIDERS: PCP Family Medicine; Visit Provider Physical Medicine & Rehabilitation | DX: R20.2 Paresthesia of skin (principal) | CPT/HCPCS: 95886; 95909 ==

== ENCOUNTER 2025-01-27 09:58 | Outpatient (REF) | payer BC, SELFPAY ==
--- OUTSIDE RECORDS SUMMARY | 2025-01-27 11:49 | XMS_ITS | Encounter Summary ---
Author Organization [facility] Address [address] [place] [address] Care Team Providers Care Pattern Painter Name Role Phone Supriya Asif Primary Care Provider [phone] Reason for Visit * Reason Comments Medication Refill Encounter Details Date Type Department Care Team ([facility] st Contact Info) Description 05/20/2024 Refill [facility] Department of Internal Medicine [place] [address] [place] [phone] Supriya Asif PA [address] [place] [address] Pure hypercholesterolemia Social History Tobacco Use Types [...] hypercholesterolemia documented in this encounter Care Teams Pattern Painter Relationship Specialty Start Date End Date Supriya Asif PA [address] [place] [address] PCP - General documented as of this encounter
--- OUTSIDE RECORDS SUMMARY | 2025-01-27 11:49 | XMS_ITS | Clinical Summary ---
Author Organization [facility] Address [address] [place] [address] Care Team Providers Care White Washer Piler Name Role Phone Renzo Yeh MD Primary [...] age to complete this topic Care Teams White Washer Piler Relationship Specialty Start Date End Date Renzo Yeh MD PCP - General Internal Medicine 07/11/17
--- OUTSIDE RECORDS SUMMARY | 2025-01-27 11:49 | XMS_ITS | Encounter Summary ---
Author Organization [facility] Address [address] [place] [address] Care Team Providers Care Pastry Cook Helper Name Role Phone Supriya Asif Primary Care Provider [phone]- [phone] Encounter Details Date Type Department Care Team (Late st Contact Info) Description 11/19/2018 Scanned Document [facility] NEUROSURGERY SCAN Neurosurgery, Scan Social History Tobacco [...] on filedocumented in this encounter Care Teams Pastry Cook Helper Relationship Specialty Start Date End Date Supriya Asif PA [address] [place] [address] PCP - General documented as of this encounter
--- OUTSIDE RECORDS SUMMARY | 2025-01-27 11:49 | XMS_ITS | Clinical Summary ---
Author Organization [facility] [place] [address] Care Team Providers Care Credit Negotiator Name Role Phone Renzo Yeh MD Primary Care Provider [phone] Social History Tobacco Use Types Packs/Day Years [...] age to complete this topic Care Teams Credit Negotiator Relationship Specialty Start Date End Date Renzo Yeh MD [address] [facility] [address] [place] [address] PCP - General Internal Medicine 07/11/17
--- OUTSIDE RECORDS SUMMARY | 2025-01-27 11:50 | XMS_ITS | Encounter Summary ---
Author Organization [facility] Address [address] [place] [address] Care Team Providers Care Home Advisor Name Role Phone Supriya Asif Primary Care Provider [phone] Reason for Visit * Reason Comments Medication Refill Encounter Details Date Type Department Care Team ([facility] st Contact Info) Description 08/13/2024 Refill [facility] Department of Internal Medicine [place] [address] [place] [phone] Supriya Asif PA [address] [place] [address] Primary hypertension Social History Tobacco Use Types [...] hypertension documented in this encounter Care Teams Home Advisor Relationship Specialty Start Date End Date Supriya Asif PA [address] [place] [address] PCP - General documented as of this encounter
--- OUTSIDE RECORDS SUMMARY | 2025-01-27 11:50 | XMS_ITS | Encounter Summary ---
Author Organization [facility] Address [address] [place] [address] Care Team Providers Care Tuck Pointer Name Role Phone Supriya Asif Primary Care Provider [phone]- [phone] Encounter Details Date Type Department Care Team (Late st Contact Info) Description 04/19/2019 Scanned Document [facility] NEUROSURGERY SCAN Neurosurgery, Scan Social History [...] on filedocumented in this encounter Care Teams Tuck Pointer Relationship Specialty Start Date End Date Supriya Asif PA [address] [place] [address] PCP - General documented as of this encounter
--- OUTSIDE RECORDS SUMMARY | 2025-01-27 11:50 | XMS_ITS | Clinical Summary ---
Author Organization [facility] Address [address] [place] [address] Care Team Providers Care Bladder Cleaner Name Role Phone Supriya Asif Primary Care Provider [phone]- [phone] Allergies Active Allergy Reactions Criticality Noted Date [...] 50+ (1 of 1 - PCV) 01/13/2016 RSV Vaccine 50 years and old er and Patients (1 - Risk 50-74 years 1-dose series) 01/13/2016 Zoster (Shingles) Vaccine (1 of 2) 01/13/2016 Influenza Vaccine 10/29/2024 02/06/2021, , 03/01/2016, Additional history exists COVID-19 Vaccine (4 - 2024-2 6 season) 2024 02/07/2021, 07/14/2020, [...] Ag/Ab, 4th Gen NON-REACT ESTEPHANIE NON-REACT ESTEPHANIE Deed Comment: HIV-1 antigen and HIV-1/HIV-2 antibodies were [...] purpose. For additional information please refer to http://education.Lasso/faq/LIU218 (This link is being provided for informational/ educational purposes only.) The performance of this assay has not been clinically validated in patients less than 2 years old. 06/17/2022 9:56 AM EDT 06/17/2022 9:59 AM EDT [facility] - 06/17/2022 10:46 PM EDT FASTING:YES FASTING: YES us Supriya MONTE LAB BLOOD ORDERABLES Final Result [address] [place] [phone] * HEPATITIS C VIRUS (HCV) ANTIBODY (06/17/2022 9:56 AM EDT) Hepatitis C Antibody NON-REACT ESTEPHANIE NON-REACT ESTEPHANIE Deed Hepatitis C Antibody (s/co) <0.02 <1.00 Deed Comment: HCV antibody was non-reactive. There is no laboratory evidence of HCV infection. In most cases, no further action is required. However, if recent HCV exposure is suspected, a test for HCV RNA (test code 83474) is suggested. For additional information please refer to http://education.Viewsy.MedaNext/faq/RPL52g4 (This link is being provided for informational/ educational purposes only.) 06/17/2022 9:56 AM EDT 06/17/2022 9:59 AM EDT Narrative [facility] - 06/17/2022 10:46 PM EDT FASTING:YES FASTING: YES us Supriya MONTE LAB BLOOD ORDERABLES Final Result [facility] [address] [place] [phone] from Last 3 Months or Most Recently Relevant to Health Maintenance Insurance [facility] Care Teams Bladder Cleaner Relationship Specialty Start Date End Date Supriya Asif PA [address] [place] [address] PCP - General
--- OUTSIDE RECORDS SUMMARY | 2025-01-27 11:50 | XMS_ITS | Patient Health Record ---
Author Organization [facility] Address [address] [place] [id number] Care Team Providers Care Finishing Lab Technician Name Role Phone LENORE WARE Primary Care Provider MOODY Sharpe Unavailable [phone] Allergies Allergen (clinical drug ingredient) Drug/Non Drug [...] Date Coverage End Date [employer] [address] [place], [place] [id number] RUTHIE PIERRE Self - patient is the insured Medical (General) History Medical History History ICD Code High blood pressure Surgical History Surgery Date(Month/Year) None
--- OUTSIDE RECORDS SUMMARY | 2025-01-27 11:50 | XMS_ITS | Clinical Summary ---
Author Organization [facility] Address [address] [place] [address] Care Team Providers Care City Clerk Name Role Phone Demarcus Aden MD Primary Care Provider [phone] Allergies Active Allergy Reactions Criticality Noted Date Comments Penicillins 08/18/2020 Medications Omeprazole (PriLOSEC OTC) 20 MG EC tablet Take 1 tablet 30-60 minutes before breakfast 30 3 1 Active famotidine (Famotidine Maximum Strength) 20 MG tablet TAKE 1 TABLET DAILY DIRECTED. 30 3 1 Active Active Problems Problem Noted Date Diagnosed Date Dyspnea 08/21/2020 Overview (05/04/2023): Impression - [id number]: - Head and neck exam including laryngoscopy essentially unremarkable with exception of signs of LPR. No paradoxical vocal fold motion noted on exam. I have a low suspicion of PVFMD as the source of his dyspnea. We did discuss that LPR can exacerbate underlying asthma/pulmonary issues.; - See LPR plan; - Recommended he [place] back to his PCP if he has not had recent EKG/cardiac work-up since onset of his symptoms. Impression - [id number]: - Head and neck exam including laryngoscopy essentially unremarkable with exception of signs of LPR. No paradoxical vocal fold motion noted on exam. I have a low suspicion of PVFMD as the source of his dyspnea given his symptom profile. We did discuss that LPR can exacerbate underlying asthma/pulmonary issues.; - See LPR plan; - Recommended he [place] back to his PCP if he has not had recent EKG/cardiac work-up since onset of his symptoms. Laryngopharyngeal reflux 08/18/2020 Overview (05/04/2023): Impression - [id number]: - I had an extensive discussion with the patient regarding their laryngeal examination and findings which are suggestive of laryngopharyngeal reflux. We discussed lifestyle modifications including dietary changes, weight loss and medical management. Patient provided with handout.; - Trial of Omeprazole 20 mg once daily and Famotidine 20 mg at bedtime to see if this improves his breathing symptoms. Impression - [id number]: - I had an extensive discussion with [...] age to complete this topic Care Teams City Clerk Relationship Specialty Start Date End Date Demarcus Aden MD [address] [place] [address] [facility] - General 11/04/22
[2025-01-27 12:05] LABS: Alanine Aminotransferase 37 U/L (0-40); Albumin Level 4.9 g/dL (3.5-5.0); Alkaline Phosphatase 64 U/L (39-117); Anion Gap 15 (12-20); Aspartate Amino Transferase 47 U/L (5-37); Blood Urea Nitrogen 13 mg/dL (9-16); Calcium 9.3 mg/dL (8.4-10.2); Carbon Dioxide 26 mmol/L (22-29); Chloride 103 mmol/L (96-108); Cholesterol 195 mg/dL (<200); Estimated Glomerular Filt Rate > 60; HDL Cholesterol 47 mg/dL (>40); Potassium 3.7 mmol/L (3.3-5.1); Sodium 140 mmol/L (135-145); Total Protein 7.7 g/dL (6.5-8.0); Triglycerides 276 mg/dL (<150)
== END 2025-01-27 09:59 | disposition home or self-care (01) ==
LOC: HO.WFDLDS 09:58
PROVIDERS: Visit Provider Family Medicine
DX: Z00.00 Encounter for general adult medical examination without abnormal findings (principal); E78.5 Hyperlipidemia, unspecified
CPT/HCPCS: 36415; 80053; 80061

== ENCOUNTER 2025-02-02 11:36 | Outpatient (AMB) | payer BC, SELFPAY ==
--- NOTE | 2025-02-02 12:06 | A.OFFPC_ITS ---
Vital Signs 02/02/25 12:11 Height 5 ft 7 in Weight 176 lb BMI 27.6 BP 124/76 Blood Pressure Location Lt brachial Position Sitting Respiration 16 Pulse 89 Pulse Source Pulse Oximeter Temp 98.4 F Temp Source Oral Pulse Oximetry (%) 97 Oxygen Delivery Method Room Air Intake Visit Reasons: f/u HLD, HTN Intake Note: patient is scheduled for htn and lab review Building Code Inspector Required: No Allergies Penicillins Allergy (Intermediate, Verified 02/02/25 12:11) Unknown Medication List - Last Reconciled 02/02/25 by Evan Livingston MD atorvastatin (Lipitor) 10 mg PO BEDTIME 90 days bisacodyl 5 mg PO ONCE 1 day diclofenac sodium 1% (Aleve (diclofenac)) 2 grams topical BID 60 days methylcellulose (laxative) (Citrucel) 500 mg PO DAILY polyethylene glycol 3350 (Miralax) 238 grams PO ONCE valsartan-hydrochlorothiazide 160-25 mg 1 tab PO DAILY 90 days Tobacco use date assessed: 11/01/24 Dental Screening Dental Screen Date: 11/01/24 HPI f/u HLD, HTN HPI Details 60 y/o male presents to f/u HLD, HTN. BP today 124/76, 89p. He is on valsartan-HCTZ 160-25mg daily. Labs drawn 01/27/25. Reviewed labs with pt. Fasting glucose 109. AST 47. ALT 37. Triglycerides 276. TC 195. LDL improved from 132 to 93. HDL 47. He is on artovastatin 10mg. Reports he continues to drink 5 alcoholic beverages per day. [facility] Medical History Acid reflux Change in stool Dislocated finger Testicular pain, left Breathing problem Sciatic leg pain Arthritis Back injury Low testosterone High blood pressure High blood cholesterol Surgical History History of vasectomy History of hernia repair Family History Father High blood pressure High cholesterol Prostate cancer Mother High blood pressure Brother High blood pressure High cholesterol Sister High blood pressure High cholesterol Social History Housing: House Patient Tobacco Use Status: Never used Tobacco e-Cigarette/Vaping Use: Never Used Second Hand Smoke Exposure: No Substance Use Type: Marijuana service: No Current occupational status: retired Current occupational exposures/hazards: No Cognitive needs: No Hearing needs: No Vision needs: Yes Questionnaire Thrive Questionnaire Date Thrive assessed: 05/24/24 I am a: Patient What is your living situation today?: I have a steady place to live Within the past 12 months, did the food you bought not last and you didn't have the money to get more?: Never true Within the past 12 months, did you worry whether your food would run out before you got money to buy more?: Never true Do you have trouble paying for medicines?: No Do you have trouble getting transportation to medical appointments?: No Do you have trouble paying your heating and electricity bill?: No Do you have trouble taking care of your child, family member or friend?: No Do you have trouble with day-to-day activities such as bathing, preparing meals, shopping, managing finances, etc.?: No Are you currently unemployed and looking for a job?: No Are you interested in more education?: No Please select the resources that you would like help with: None Currently or been in a relationship where the following occur: No concerns reported THRIVE Score: 0 MARIA L-7 AMB Questionnaire MARIA L-7 Date MARIA L - 7 assessed: 05/25/24 Source: Developed by Drs. Ricky Baxter, Mary Jo Ascencio, Griffin Timmons and colleagues, with an educational moe from [employer]. Review of Systems Const Denies chills, Denies fatigue, Denies fever(s), Denies headache(s) and Denies weakness ENT Denies dizziness and Denies headache(s) Card Denies dyspnea Resp Denies cough, Denies dyspnea, Denies wheezing and Denies other (shortness of breath) Musc Denies numbness and Denies tingling Neuro Denies dizziness, Denies headache(s), Denies numbness, Denies tingling and Denies weakness Psych Denies anxiety and Denies depression Endo Denies fatigue Aller/Immun Denies wheezing Physical exam (Primary Care) Vital Signs: Last Vital Signs Temp 98.4 F 02/02/25 12:11 Pulse 89 02/02/25 12:11 Resp 16 02/02/25 12:11 BP 124/76 02/02/25 12:11 Pulse Ox 97 02/02/25 12:11 Oxygen Delivery Method Room Air 02/02/25 12:11 BMI result Body Mass Index 27.6 Tobacco/Smoking Status: Tobacco use Status Tobacco use date assessed 11/01/24 02/02/25 12:07 Patient Tobacco Use Status Never used Tobacco 02/02/25 12:07 e-Cigarette/Vaping Use Never Used 02/02/25 12:07 Thrive Assessment: Date of Thrive Assessment Date Thrive assessed 05/24/24 02/02/25 12:07 Currently or been in a relationship where the following occur: No concerns reported Const General: well developed; No acute distress Nutritional Appearance: well nourished Orientation/consciousness: patient oriented x3 HENMT Head: Yes normocephalic and Yes atraumatic Eyes General: appearance normal, both eyes and all related structures Pupils: Equal, round and reactive pupils present EOM: EOMs intact bilaterally Resp Effort & Inspection: normal respiratory effort Auscultation: clear to auscultation bilaterally Cardio Rate: regular rate Rhythm: regular rhythm Heart sounds: S1 normal heart sound present, S2 normal heart sound present, no gallops, no murmurs and no rubs Neuro General: patient oriented x3 and gait normal Cranial nerves: Yes Equal, round and reactive pupils present Psych Affect: normal affect Coding Level of Care Code Est Pt Level 5 (31973) Diagnoses High blood pressure I10 Hyperlipidemia E78.5 Elevated fasting glucose R73.01 Elevated liver enzymes R74.8 Alcohol use F10.90 Anemia D64.9 Neuropathy G62.9 Assessment & Plan Assessment & Plan (1) High blood pressure: Code(s): I10 - Essential (primary) hypertension Category: Medical Plan: Blood pressure is okay today. We can continue to monitor (2) Hyperlipidemia: Code(s): E78.5 - Hyperlipidemia, unspecified Category: Medical Plan: Lipids are improved on atorvastatin Continue current medication (3) Elevated fasting glucose: Code(s): R73.01 - Impaired fasting glucose Category: Medical Plan: Mildly elevated fasting blood sugar Will recheck this along with A1c test at next visit Encouraged diet lower in sugars and starches (4) Elevated liver enzymes: Code(s): R74.8 - Abnormal levels of other serum enzymes Category: Medical Plan: Mildly elevated AST liver enzyme Patient notes he drinks about 5 drinks per day Also not drinking enough water Encouraged improved hydration and decrease in alcohol (5) Alcohol use: Code(s): F10.90 - Alcohol use, unspecified, uncomplicated Category: Social Hx (6) Anemia: Code(s): D64.9 - Anemia, unspecified Category: Medical (7) Neuropathy: Code(s): G62.9 - Polyneuropathy, unspecified Category: Medical Plan Patient is drinking about 5 alcoholic beverages per day Mild elevation in his liver enzymes Mild depression in his blood counts at previous lab evaluation. Also notes some neuropathy symptoms As above, encouraged decrease in alcohol use, increase in hydration, recommended complex B12 vitamins Will continue monitor He will return in about 3 months to follow-up elevated fasting blood sugar, elevated liver enzymes, alcohol use, mild anemia, neuropathy and hypertension. Orders: Orders Lyme IgG/IgM w/reflex to WB 02/02/25 R61 - Generalized hyperhidrosis IRON PROFILE 2 Weeks D64.9 - Anemia, unspecified Hemoglobin A1c 2 Weeks R73.01 - Impaired fasting glucose Comprehensive [place]. Panel Fast 2 Weeks R73.01 - Impaired fasting glucose, Z00.00 - Encounter for general adult medical examination without abnormal fin dings Complete Blood Count Auto Diff 2 Weeks D64.9 - Anemia, unspecified, Z00.00 - Encounter for general adult medical examination without abnormal findings Reticulocyte Count 2 Weeks D64.9 - Anemia, unspecified Vitamin B12 and Folate 2 Weeks D64.9 - Anemia, unspecified, E53.8 - Deficiency of other specified B group vitamins
[2025-02-02 12:11] VITALS: BP 124/76; PULSE 89; RESP 16; TEMP 36.9; O2SAT 97; BMI 27.6
--- OUTSIDE RECORDS SUMMARY | 2025-02-02 14:17 | XMS_ITS | Clinical Summary ---
Author Organization [facility] Address [address] [place] [address] Care Team Providers Care Retail Presentation Specialist Name Role Phone Demarcus Aden MD Primary Care Provider [phone] Allergies Active Allergy Reactions Criticality Noted Date Comments Penicillins 08/18/2020 Medications Omeprazole (PriLOSEC OTC) 20 MG EC tablet Take 1 tablet 30-60 minutes before breakfast 30 3 1 Active famotidine (Famotidine Maximum Strength) 20 MG tablet TAKE 1 TABLET DAILY DIRECTED. 30 3 1 Active Active Problems Problem Noted Date Diagnosed Date Dyspnea 08/21/2020 Overview (05/04/2023): Impression - [id number]: - Head and neck exam including laryngoscopy essentially unremarkable with exception of signs of LPR. No paradoxical vocal fold motion noted on exam. I have a low suspicion of PVFMD as the source of his dyspnea. We did discuss that LPR can exacerbate underlying asthma/pulmonary issues.; - See LPR plan; - Recommended he [place] back to his PCP if he has not had recent EKG/cardiac work-up since onset of his symptoms. Impression - [id number]: - Head and neck exam including laryngoscopy essentially unremarkable with exception of signs of LPR. No paradoxical vocal fold motion noted on exam. I have a low suspicion of PVFMD as the source of his dyspnea given his symptom profile. We did discuss that LPR can exacerbate underlying asthma/pulmonary issues.; - See LPR plan; - Recommended he [place] back to his PCP if he has not had recent EKG/cardiac work-up since onset of his symptoms. Laryngopharyngeal reflux 08/18/2020 Overview (05/04/2023): Impression - [id number]: - I had an extensive discussion with the patient regarding their laryngeal examination and findings which are suggestive of laryngopharyngeal reflux. We discussed lifestyle modifications including dietary changes, weight loss and medical management. Patient provided with handout.; - Trial of Omeprazole 20 mg once daily and Famotidine 20 mg at bedtime to see if this improves his breathing symptoms. Impression - [id number]: - I had an extensive discussion with [...] age to complete this topic Care Teams Retail Presentation Specialist Relationship Specialty Start Date End Date Demarcus Aden MD [address] [place] [address] [facility] - General 11/04/22
--- OUTSIDE RECORDS SUMMARY | 2025-02-02 14:17 | XMS_ITS | Clinical Summary ---
Author Organization [facility] Address [address] [place] [address] Care Team Providers Care Accessibility Lift Technician Name Role Phone Supriya Asif Primary Care Provider +1- [phone] Allergies Active Allergy Reactions Criticality Noted Date [...] Ag/Ab, 4th Gen NON-REACT ESTEPHANIE NON-REACT ESTEPHANIE [facility] Comment: HIV-1 antigen and HIV-1/HIV-2 antibodies were [...] purpose. For additional information please refer to http://education.Nutmeg Education/faq/KKS784 (This link is being provided for informational/ educational purposes only.) The performance of this assay has not been clinically validated in patients less than 2 years old. 06/17/2022 9:56 AM EDT 06/17/2022 9:[address] [facility] - 06/17/2022 10:46 PM EDT FASTING:YES FASTING: YES us Supriya MONTE LAB BLOOD ORDERABLES Final Result [employer] [address] [place] [phone] * HEPATITIS C VIRUS (HCV) ANTIBODY (06/17/2022 9:56 AM EDT) Hepatitis C Antibody NON-REACT ESTEPHANIE NON-REACT ESTEPHANIE [facility] Hepatitis C Antibody (s/co) <0.02 <1.00 [facility] Comment: HCV antibody was non-reactive. There is no laboratory evidence of HCV infection. In most cases, no further action is required. However, if recent HCV exposure is suspected, a test for HCV RNA (test code 64131) is suggested. For additional information please refer to http://education.RightSignature.Adar IT/faq/SBG84e9 (This link is being provided for informational/ educational purposes only.) 06/17/2022 9:56 AM EDT 06/17/2022 9:59 AM EDT Narrative [facility] - 06/17/2022 10:46 PM EDT FASTING:YES FASTING: YES us Supriya MONTE LAB BLOOD ORDERABLES Final Result [facility] [address] [place] [phone] from Last 3 Months or Most Recently Relevant to Health Maintenance Insurance [facility] Care Teams Accessibility Lift Technician Relationship Specialty Start Date End Date Supriya Asif PA [address] [place] [address] PCP - General
--- OUTSIDE RECORDS SUMMARY | 2025-02-02 14:17 | XMS_ITS | Clinical Summary ---
Author Organization [facility] [place] [address] Care Team Providers Care Title I Teacher Name Role Phone Renzo Yeh MD [...] age to complete this topic Care Teams Title I Teacher Relationship Specialty Start Date End Date Renzo Yeh MD 9 [facility] [address] [place] [address] PCP - General Internal Medicine 07/11/17
--- OUTSIDE RECORDS SUMMARY | 2025-02-02 14:17 | XMS_ITS | Patient Health Record ---
Author Organization [facility] Address [address] [place] [phone] Care Team Providers Care Towerman Name Role Phone LENORE WARE Primary Care Provider MOODY Sharpe Unavailable [phone] Allergies Allergen (clinical drug ingredient) Drug/Non Drug [...] Date Coverage End Date [employer] [address] [place], [place] [id number] RUTHIE PIERRE Self - patient is the insured Medical (General) History Medical History History ICD Code High blood pressure Surgical History Surgery Date(Month/Year) None
--- OUTSIDE RECORDS SUMMARY | 2025-02-02 14:17 | XMS_ITS | Encounter Summary ---
Author Organization [facility] Address [address] [place] [address] Care Team Providers Care Customer Experience Associate Name Role Phone Supriya Asif Primary Care Provider +1- [phone] Encounter Details Date Type Department Care Team (Late st Contact Info) Description 04/19/2019 Scanned Document [facility] NEUROSURGERY SCAN Neurosurgery, Scan Social History Tobacco [...] on filedocumented in this encounter Care Teams Customer Experience Associate Relationship Specialty Start Date End Date Supriya Asif PA [address] [place] [address] PCP - General documented as of this encounter
--- OUTSIDE RECORDS SUMMARY | 2025-02-02 14:17 | XMS_ITS | Encounter Summary ---
Author Organization [facility] Address [address] [place] [address] Care Team Providers Care Customer Manager Name Role Phone Supriya Asif Primary Care Provider +1- [phone] Encounter Details Date Type Department Care Team (Late st Contact Info) Description 11/19/2018 Scanned Document [facility] NEUROSURGERY SCAN Neurosurgery, Scan Social History [...] filedocumented in this encounter Care Teams Customer Manager Relationship Specialty Start Date End Date Supriya Asif PA [address] [place] [address] PCP - General documented as of this encounter
--- OUTSIDE RECORDS SUMMARY | 2025-02-02 14:17 | XMS_ITS | Clinical Summary ---
Author Organization [facility] Address [address] [place] [address] Care Team Providers Care Regional Sales Leader Name Role Phone Renzo Yeh MD Primary [...] age to complete this topic Care Teams Regional Sales Leader Relationship Specialty Start Date End Date Renzo Yeh MD PCP - General Internal Medicine 07/11/17
== END 2025-02-02 12:52 | disposition home or self-care (01) ==
LOC: HO.HMCFM 11:36
PROVIDERS: PCP Family Medicine; Visit Provider Family Medicine
DX: I10 Essential (primary) hypertension (principal); E78.5 Hyperlipidemia, unspecified; R73.01 Impaired fasting glucose; R74.8 Abnormal levels of other serum enzymes; F10.90 Alcohol use, unspecified, uncomplicated; D64.9 Anemia, unspecified; G62.9 Polyneuropathy, unspecified

== ENCOUNTER 2025-02-10 06:44 | Day surgery (SDC) | payer BC, SELFPAY ==
--- OUTSIDE RECORDS SUMMARY | 2025-01-13 09:09 | XMS_ITS | Patient Health Record ---
Author Organization [facility] Address [address] [place] [id number] Care Team Providers Care Baggage Agent Supervisor Name Role Phone LENORE WARE Primary Care Provider MOODY Sharpe Unavailable [phone] Allergies Allergen (clinical drug ingredient) Drug/Non Drug Allergy documented on EMR Reaction Allergy Type Onset Date Status penicillin Unknown Drug Allergy Active Reason For Referral No Information Medications Medication SIG (Take, Route, Frequency, Duration) Notes Start Date End Date Status PT for Rotator Cuff Range of motion, Strengthening, H EP as directed - 2 times per week; Duration: 4-6 weeks Active Mobic 15 mg 1 tab(s) begin after Medrol orally once a day; Duration: 30 day(s) Active lisinopril 12.5mg Ac tive Plan Of Treatment Pending Test Test Name Order Date MRI : Shoulder, right 11/26/2012 Insurance Providers Payer Name Payer Address Payer Phone Subscriber Number Group Number Insured Name Patient Relationship to Insured Coverage Start Date Coverage End Date [employer] [address] [place], [place] [id number] RUTHIE PIERRE Self - patient is the insured Medical (General) History Medical History History ICD Code High blood pressure Surgical History Surgery Date(Month/Year) None
--- OUTSIDE RECORDS SUMMARY | 2025-01-13 09:09 | XMS_ITS | Encounter Summary ---
Author Organization [facility] Address [address] [place] [address] Care Team Providers Care Wheel Press Clerk Name Role Phone Supriya Asif Primary Care Provider [phone] Reason for Visit * Reason Comments Medication Refill Encounter Details Date Type Department Care Team ([facility] st Contact Info) Description 08/13/2024 Refill [facility] Department of Internal Medicine [place] [address] [place] [phone] Supriya Asif PA [address] [place] [address] Primary hypertension Social History Tobacco Use Types Packs/Day Years [...] Telephone Encounter - Delmy Villaseñor LPN - 08/13/2024 2:34 PM EDT Patient is missing a follow up appointment OR needs appropriate labs for prescription renewal. documented in this encounter Plan of Treatment Not on file documented as of this encounter Visit Diagnoses Diagnosis Primary hypertension Unspecified essential hypertension documented in this encounter Care Teams Wheel Press Clerk Relationship Specialty Start Date End Date Supriya Asif PA [address] [place] [address] PCP - General documented as of this encounter
--- OUTSIDE RECORDS SUMMARY | 2025-01-13 09:09 | XMS_ITS | Clinical Summary ---
Author Organization [facility] Address [address] [place] [address] Care Team Providers Care Rubber Mill Tender Name Role Phone Renzo Yeh MD Primary [...] (1 o f 2) 01/13/2016 COVID-19 Vaccine (2024-2 6 season) 2024 07/14/2020, 06/23/2020 Influenza Vaccine (#1) 2024 Pneumococcal Vaccine Aged Out No long er eligible based on patient's age to complete this topic RSV Ped < 20 months Aged Out No longe r eligible based on patient's age to complete this topic Care Teams Rubber Mill Tender Relationship Specialty Start Date End Date Renzo Yeh MD PCP - General Internal Medicine 07/11/17
--- OUTSIDE RECORDS SUMMARY | 2025-01-13 09:09 | XMS_ITS | Encounter Summary ---
Author Organization [facility] Address [address] [place] [address] Care Team Providers Care Staffing Clerk Name Role Phone Supriya Asif Primary Care Provider [phone] Encounter Details Date Type Department Care Team (Late st Contact Info) Description 04/19/2019 Scanned Document [facility] Neurosurgery, Scan Social History Tobacco [...] on filedocumented in this encounter Care Teams Staffing Clerk Relationship Specialty Start Date End Date Supriya Asif PA [address] [place] [address] PCP - General documented as of this encounter
--- OUTSIDE RECORDS SUMMARY | 2025-01-13 09:09 | XMS_ITS | Clinical Summary ---
Author Organization [facility] [place] [address] Care Team Providers Care Soft Shoe Dancer Name Role Phone Renzo Yeh MD Primary Care Provider [phone] Social History Tobacco Use Types Packs/Day Years [...] 01/13/2016 Zoster Vaccines (1 of 2) 01/13/2016 Depression Screening 03/31/2024 COVID-19 Vaccine (3 - 2024-2 6 season) 2024 07/14/2020, 06/23/2020 Influenza Vaccine (#1) 2024 RSV Immunization Adult Patients (1 - 1-dose 75+ series) 2041 HIB Vaccines Aged Out No longer eligi [...] age to complete this topic Care Teams Soft Shoe Dancer Relationship Specialty Start Date End Date Renzo Yeh MD 9 [facility] [address] [place] [address] PCP - General Internal Medicine 07/11/17
--- OUTSIDE RECORDS SUMMARY | 2025-01-13 09:09 | XMS_ITS | Encounter Summary ---
Author Organization [facility] Address [address] [place] [address] Care Team Providers Care Accountant Cost Name Role Phone Supriya Asif Primary Care Provider [phone]- [phone] Encounter Details Date Type Department Care Team (Late st Contact Info) Description 11/19/2018 Scanned Document [facility] NEUROS[facility]ERY SCAN Neurosurgery, Scan Social History [...] on filedocumented in this encounter Care Teams Accountant Cost Relationship Specialty Start Date End Date Supriya Asif PA [address] [place] [address] PCP - General documented as of this encounter
--- OUTSIDE RECORDS SUMMARY | 2025-01-13 09:09 | XMS_ITS | Clinical Summary ---
Author Organization [facility] Address [address] [place] [address] Care Team Providers Care Supervisor Of Research Name Role Phone Supriya Asif Primary Care Provider [phone] Allergies Active Allergy Reactions Criticality Noted Date [...] cervical disc degeneration at C4-C5 level 04/13/2018 Immunizations Immunization Administration Dates Next Due Influenza, [...] Vaccine (1 of 2) 01/13/2016 Influenza Vaccine 10/29/2024 02/06/2021, , 03/01/2016, Additional history exists COVID-19 Vaccine ( - 2024-2 6 season) 2024 02/07/2021, 07/14/2020, 06/23/2020 HIV Screening Completed 06/17/2022 [...] Ag/Ab, 4th Gen NON-REACT ESTEPHANIE NON-REACT ESTEPHANIE [facility] Comment: HIV-1 antigen and HIV-1/HIV-2 antibodies were not detected. There is no laboratory evidence of HIV infection. PLEASE NOTE: This information has been disclosed to you from records whose confidentiality may be protected by state law. If your state requires such protection, then the state law prohibits you from making any further disclosure of the information without the specific written consent of the person to whom it pertains, or as otherwise permitted by law. A general authorization for the release of medical or other information is NOT sufficient for this purpose. For additional information please refer to http://[employer]/faq/AGN390 (This link is being provided for informational/ educational purposes only.) The performance of this assay has not been clinically validated in patients less than 2 years old. 06/17/2022 9:56 AM EDT 06/17/2022 9:59 AM EDT [facility] - 06/17/2022 10:46 PM EDT FASTING:YES FASTING: YES us Supriya MONTE LAB BLOOD ORDERABLES Final Result Performing Organization Address City/State/[facility] Co de Phone Number [employer] [address] [place] [phone] * HEPATITIS C VIRUS (HCV) ANTIBODY (06/17/2022 9:56 AM EDT) Hepatitis C Antibody NON-REACT ESTEPHANIE NON-REACT ESTEPHANIE [facility] Hepatitis C Antibody (s/co) <0.02 <1.00 [facility] Comment: HCV antibody was non-reactive. There is no laboratory evidence of HCV infection. In most cases, no further action is required. However, if recent HCV exposure is suspected, a test for HCV RNA (test code 74145) is suggested. For additional information please refer to http://education.[employer]/faq/LTT52c2 (This link is being provided for informational/ educational purposes only.) 06/17/2022 9:56 AM EDT 06/17/2022 9:59 AM EDT Narrative [facility] - 06/17/2022 10:46 PM EDT FASTING:YES FASTING: YES us Supriya MONTE LAB BLOOD ORDERABLES Final Result [facility] [address] [place] [address] from Last 3 Months or Most Recently Relevant to Health Maintenance Insurance [facility] Care Teams Supervisor Of Research Relationship Specialty Start Date End Date Supriya Asif PA [address] [place] [address] PCP - General
--- OUTSIDE RECORDS SUMMARY | 2025-01-13 09:09 | XMS_ITS | Encounter Summary ---
Author Organization [facility] Address [address] [place] [address] Care Team Providers Care Hose Maker Name Role Phone Supriya Asif Primary Care Provider [phone]- [phone] Reason for Visit * Reason Comments Medication Refill Encounter Details Date Type Department Care Team ([facility] st Contact Info) Description 05/20/2024 Refill [facility] Department of Internal Medicine [place] [address] [place] [phone] Supriya Asif PA [address] [place] [address] Pure hypercholesterolemia Social History Tobacco Use Types [...] hypercholesterolemia documented in this encounter Care Teams Hose Maker Relationship Specialty Start Date End Date Supriya Asif PA [address] [place] [address] PCP - General documented as of this encounter
--- OUTSIDE RECORDS SUMMARY | 2025-01-13 09:09 | XMS_ITS | Clinical Summary ---
Author Organization [facility] Address [address] [place] [address] Care Team Providers Care Civil Transportation Engineer Name Role Phone Demarcus Aden MD Primary Care Provider [phone] Allergies Active Allergy Reactions Criticality Noted Date Comments Penicillins 08/18/2020 Medications Omeprazole (PriLOSEC OTC) 20 MG EC tablet Take 1 tablet 30-60 minutes before breakfast 30 3 1 Active famotidine (Famotidine Maximum Strength) 20 MG tablet TAKE 1 TABLET DAILY DIRECTED. 30 3 1 Active Active Problems Problem Noted Date Diagnosed Date Dyspnea 08/21/2020 Overview (05/04/2023): Impression - [id number]: - Head and neck exam including laryngoscopy essentially unremarkable with exception of signs of LPR. No paradoxical vocal fold motion noted on exam. I have a low suspicion of PVFMD as the source of his dyspnea. We did discuss that LPR can exacerbate underlying asthma/pulmonary issues.; - See LPR plan; - Recommended he [place] back to his PCP if he has not had recent EKG/cardiac work-up since onset of his symptoms. Impression - [id number]: - Head and neck exam including laryngoscopy essentially unremarkable with exception of signs of LPR. No paradoxical vocal fold motion noted on exam. I have a low suspicion of PVFMD as the source of his dyspnea given his symptom profile. We did discuss that LPR can exacerbate underlying asthma/pulmonary issues.; - See LPR plan; - Recommended he [place] back to his PCP if he has not had recent EKG/cardiac work-up since onset of his symptoms. Laryngopharyngeal reflux 08/18/2020 Overview (05/04/2023): Impression - [id number]: - I had an extensive discussion with the patient regarding their laryngeal examination and findings which are suggestive of laryngopharyngeal reflux. We discussed lifestyle modifications including dietary changes, weight loss and medical management. Patient provided with handout.; - Trial of Omeprazole 20 mg once daily and Famotidine 20 mg at bedtime to see if this improves his breathing symptoms. Impression - [id number]: - I had an extensive discussion with [...] of 2) 01/13/2016 COVID-19 Vaccine ( - 2024-2 6 season) 2024 Influenza (#1) 2024 HPV Vaccine (No Doses Required) Completed Hep A Aged Out No longer eligi ble based on patient's age to complete this topic Hib Aged Out No longer eligi ble based on patient's age to complete this topic Meningococcal ACWY Aged Out No longer eligible based on patient's age to complete this topic Care Teams Civil Transportation Engineer Relationship Specialty Start Date End Date Demarcus Aden MD [address] [place] [address] [facility] - General 11/04/22
--- NOTE | 2025-02-07 13:13 | P.CONAN_ITS ---
Documented by User: Barbara Sales NP 02/07/25 13:16 HPI - Anesthesia Eval Consult details Narrative: 60yo M for Upper Endoscopy and Colonoscopy Daily ETOH ~ 5 drinks daily per PCP note PMFSH Active Problems Active Problems: All Active Problems Anemia (Acute) Neuropathy (Acute) Elevated liver enzymes (Acute) Elevated fasting glucose (Acute) Acid reflux (Acute) Change in stool (Acute) Stiffness of joints of both hands (Acute) Bilateral hand numbness (Acute) Left inguinal hernia (Acute) Diverticulitis (Acute) Abdominal pain (Acute) Tachycardia (Acute) Hyperlipidemia (Acute) Screening for prostate cancer (Acute) Adult general medical exam (Acute) Hand pain (Acute) Screening for colon cancer (Acute) Low testosterone (Acute) Alcohol use (Acute) Dislocated finger (Acute) Excessive sweating (Acute) Laboratory exam ordered as part of routine general medical examination (Acute) High blood cholesterol (Acute) High blood pressure (Acute) Back pain (Acute) Abdominal discomfort (Acute) Past Medical History Medical History Acid reflux Change in stool Dislocated finger Testicular pain, left Breathing problem Sciatic leg pain Arthritis Back injury Low testosterone High blood pressure High blood cholesterol Family History Family History Father High blood pressure High cholesterol Prostate cancer Mother High blood pressure Brother High blood pressure High cholesterol Sister High blood pressure High cholesterol Surgical History Surgical History History of vasectomy History of hernia repair Social History Social History Housing: House Are you a primary nurse healthcare manager to a significant other at home: No Do you presently have visiting nurse or other home services: No Patient Tobacco Use Status: Former Tobacco user e-Cigarette/Vaping Use: Never Used Second Hand Smoke Exposure: No Substance Use Type: Marijuana Substance Use Frequency: Occasionally Have you been hit, kicked, punched, or otherwise hurt by someone within the past year? If so, by whom?: No Are you DNR?: No Advance Directives: No Advance Directives Information Provided: Yes service: No Current occupational status: retired Current occupational exposures/hazards: No Cognitive needs: No Hearing needs: No Vision needs: Yes Meds Allergies Allergy/AdvReac Type Severity Reaction Status Date / Time Penicillins Allergy Intermediate Unknown Verified 02/10/25 06:56 Exam Pertinent Lab Results Pertinent Lab Results: Laboratory Tests 09/08/24 01/27/25 08:27 10:03 WBC 7.1 Hgb 13.0 L Hct 37.9 L Plt Count 227 Sodium 140 Potassium 3.7 Chloride 103 Carbon Dioxide 26 BUN 13 Creatinine 0.91 Assessment and Plan Assessment Anesthesia Assessment: Chart Reviewed Documented by User: Chiquis Noriega MD 02/10/25 08:06 [facility] Past Medical History Medical History Acid reflux Change in stool Dislocated finger Testicular pain, left Breathing problem Sciatic leg pain Arthritis Back injury Low testosterone High blood pressure High blood cholesterol Family History Family History Father High blood pressure High cholesterol Prostate cancer Mother High blood pressure Brother High blood pressure High cholesterol Sister High blood pressure High cholesterol Surgical History Surgical History History of vasectomy History of hernia repair History of Problems with Anesthesia: No Social History Social History Housing: House Are you a primary nurse healthcare manager to a significant other at home: No Do you presently have visiting nurse or other home services: No Patient Tobacco Use Status: Former Tobacco user e-Cigarette/Vaping Use: Never Used Second Hand Smoke Exposure: No Substance Use Type: Marijuana Substance Use Frequency: Occasionally Have you been hit, kicked, punched, or otherwise hurt by someone within the past year? If so, by whom?: No Are you DNR?: No Advance Directives: No Advance Directives Information Provided: Yes service: No Current occupational status: retired Current occupational exposures/hazards: No Cognitive needs: No Hearing needs: No Vision needs: Yes Meds Allergies Allergy/AdvReac Type Severity Reaction Status Date / Time Penicillins Allergy Intermediate Unknown Verified 02/10/25 06:56 Exam Airway Mallampati Class: III TM Dist: >3cm Neck ROM: Full Loose/Missing/Broken Teeth: No Heart: RRR Lungs: CTA Assessment and Plan Assessment Anesthesia Assessment: Anesthesia Plan Discussed Final Anesthetic Review History of Problems with Anesthesia: No NPO: Yes ASA Class: II Final Preanesthetic Review: Meds/Allgs Chart Reviewed, Consent Obtained/Reviewed and Anes Risks/Benef Reviewed Patient Risk: Low Procedure Risk: Intermediate Anesthetic Plan Anesthetic Plan: MAC: Disposition: Standard PACU
[2025-02-08 09:51] VITALS: BMI 27.4
[2025-02-10 07:10] VITALS: BMI 26.8
[2025-02-10 07:22] VITALS: BP 176/86; PULSE 90; RESP 18; TEMP 36.9; O2SAT 100
[2025-02-10] MEDS: Lactated Ringers 1,000 ML 100 ML IVCONT (07:22)
--- NOTE | 2025-02-10 07:55 | MHC.SHP ---
Pre-Procedural Eval Section A - 24 Hr Update-Section A only Date of Service: 02/10/25 Section B - Complete if H&P > 30 days Chief Complaint: GERD, hx of diverticulitis Details of Present Illness: Acid reflux Change in stool Dislocated finger Testicular pain, left Breathing problem Sciatic leg pain Arthritis Back injury Low testosterone High blood pressure High blood cholesterol Surgical History History of vasectomy History of hernia repair Present Medications: see Short Stay Collaborative assessment Allergies: Allergies Allergy/AdvReac Type Severity Reaction Status Date / Time Penicillins Allergy Intermediate Unknown Verified 02/10/25 06:56 Review of Systems Review of Systems Comment: Ten point ROS negative Exam Exam Comment: Gen appear: No acute distress HEENT: no icterus Chest: No overt resp distress Abd: soft, nontender, nondistended Psych: Stable affect, answering questions appropriately Neuro: A/Ox3 noted to move all extremities spontaneously Ext: no peripheral edema Plan Diagnosis/Plan: Unchanged I have reviewed the history and physical and performed a pertinent physical examination on my patient. No changes have occurred unless specified. Time Spent With Patient Time: Total time managing care of this patient today ____ minutes.
--- NOTE | 2025-02-10 08:24 | P.OPN-COLO_ITS ---
Colonoscopy Operative Note Operative Note Date of Service: 02/10/25 Narrative: Procedure: Upper endoscopy and colonoscopy Indication: GERD, Hx of diverticulitis Endoscopist: Temi Kirby MD Anesthesia Provider: Dr Chiquis Noriega Anesthesia type: MAC Instrument: [id number]-H190 and [id number]-[id number] EGD Procedure:?? The procedure, indications, preparation and potential complications were reviewed with the patient, who indicated understanding and gave written informed consent to proceed. The endoscope was introduced through the mouth, and advanced to the 2nd part of the duodenum. The mucosa was carefully examined on slow withdrawal of the endoscope. The patient tolerated the procedure well. There were no immediate complications.? EGD Findings:? * Esophagus:? Linear erosions with erythema measuring 10 mm noted at GE junction. The erosions did not cross the tops of mucosal folds. The Z-line was at 42 cm. * Stomach:? Normal gastric mucosa. Retroflexion was performed in the cardia. Random cold forceps biopsies were taken from the stomach. * Duodenum:? Erythema and edema of the duodenal bulb. Remaining mucosa normal to extent examined. Cold forceps biopsies were taken from the duodenal bulb and 2nd portion of the duodenum to rule out celiac sprue. Colonoscopy Procedure:? The patient was then turned for the colonoscopy. A digital rectal exam was performed which was abnormal for external hemorrhoids.? A distal attachment cap was affixed to the tip of the scope and the colonoscope was then inserted through the anus and advanced through the colon and advanced to the cecum at 75 cm and terminal ileum.? Appendiceal orifice and ileocecal valve were identified. Mucosa was carefully examined under high definition white light as the instrument was slowly withdrawn in a retrograde panoramic fashion. Retroflexion was performed in rectum. The procedure was not difficult. The quality of the prep was BBPS: 3+3+2 = adequate Withdrawal time 8 minutes Limitations: No limitations Findings: Mucosa: Focal erythema and edema in the proximal sigmoid colon likely from acute diverticulitis. Remaining mucosa normal to cecum and terminal ileum. Protruding lesions: * 1 sessile polyp of size 8 mm in descending colon. Cold snare polypectomy was performed. The polyp was completely removed and retrieved. * Medium internal hemorrhoids without stigmata of recent bleeding. Excavated lesions: * [id number] diverticulosis in sigmoid colon, with likely acute diverticulitis as above. Impression: 1. Grade B esophagitis 2. Normal stomach (biopsy) 3. Duodenitis (biopsy) 4. Possible acute diveritculitis 5. Total 1 polyp removed 6. Internal and external hemorrhoids Recommendations:?? * Follow-up path results * Avoid NSAIDs * H Pylori treatment if biopsies + * Start omeprazole 20 mg once daily * Start cipro 500 BID and flagyl 500 TID x 5 days * Repeat colonoscopy for CRC screening in 5 years.
[2025-02-10 09:01] VITALS: BP 120/81; PULSE 83; RESP 16; TEMP 36.8; O2SAT 95
[2025-02-10 09:15] VITALS: BP 131/88; PULSE 83; RESP 16; TEMP 36.8; O2SAT 97
== END 2025-02-10 09:35 | disposition home or self-care (01) ==
PROVIDERS: PCP Family Medicine; Visit Provider Internal Medicine
PROC: (CPT 45385; principal; 2025-02-10 08:20)
DX: Z12.11 Encounter for screening for malignant neoplasm of colon (principal); Z87.19 Personal history of other diseases of the digestive system; D12.4 Benign neoplasm of descending colon; K57.30 Diverticulosis of large intestine without perforation or abscess without bleeding; K64.8 Other hemorrhoids; K64.4 Residual hemorrhoidal skin tags; K21.9 Gastro-esophageal reflux disease without esophagitis; K20.80 Other esophagitis without bleeding; K29.80 Duodenitis without bleeding
CPT/HCPCS: 45385; 43239; 88305; 88313; 88342; J2250; J2704

== ENCOUNTER → 2025-02-10 06:44 | Outpatient (BNV) | payer BC, SELFPAY | PROVIDERS: PCP Family Medicine; Visit Provider Internal Medicine | DX: K57.30 Diverticulosis of large intestine without perforation or abscess without bleeding (principal); K63.5 Polyp of colon; K64.8 Other hemorrhoids; K21.00 Gastro-esophageal reflux disease with esophagitis, without bleeding; K29.80 Duodenitis without bleeding | CPT/HCPCS: 43239; 45385 ==

== ENCOUNTER 2025-02-11 13:40 | Outpatient (REF) | payer BC, SELFPAY ==
--- OUTSIDE RECORDS SUMMARY | 2025-02-11 20:01 | XMS_ITS | Encounter Summary ---
Author Organization [facility] Address [address] [place] [address] Care Team Providers Care Ferryboat Operator Name Role Phone Supriya Asif Primary Care Provider +1- [phone] Encounter Details Date Type Department Care Team (Late st Contact Info) Description 11/19/2018 Scanned Document [facility] NEUROSURGERY SCAN Neurosurgery, Scan Social History [...] on filedocumented in this encounter Care Teams Ferryboat Operator Relationship Specialty Start Date End Date Supriya Asif PA [address] [place] [address] PCP - General documented as of this encounter
--- OUTSIDE RECORDS SUMMARY | 2025-02-11 20:01 | XMS_ITS | Clinical Summary ---
Author Organization [facility] Address [address] [place] [address] Care Team Providers Care Global Marketing Specialist Name Role Phone Supriya Asif Primary Care Provider +1- [phone] Allergies Active Allergy Reactions Criticality Noted Date [...] Ag/Ab, 4th Gen NON-REACT ESTEPHANIE NON-REACT ESTEPHANIE [facility] [employer] Comment: HIV-1 antigen and HIV-1/HIV-2 antibodies were [...] purpose. For additional information please refer to http://education.Corium International/faq/NQB810 (This link is being provided for informational/ educational purposes only.) The performance of this assay has not been clinically validated in patients less than 2 years old. 06/17/2022 9:56 AM EDT 06/17/2022 9:59 AM EDT [facility] - 06/17/2022 10:46 PM EDT FASTING:YES FASTING: YES us Supriya MONTE LAB BLOOD ORDERABLES Final Result [employer] [address] [place] [phone] * HEPATITIS C VIRUS (HCV) ANTIBODY (06/17/2022 9:56 AM EDT) Hepatitis C Antibody NON-REACT ESTEPHANIE NON-REACT ESTEPHANIE [facility] [employer] Hepatitis C Antibody (s/co) <0.02 <1.00 [facility] [employer] Comment: HCV antibody was non-reactive. There is no laboratory evidence of HCV infection. In most cases, no further action is required. However, if recent HCV exposure is suspected, a test for HCV RNA (test code 67319) is suggested. For additional information please refer to http://education.Clari.Pressglue/faq/YEL26h0 (This link is being provided for informational/ educational purposes only.) 06/17/2022 9:56 AM EDT 06/17/2022 9:59 AM EDT Narrative [facility] - 06/17/2022 10:46 PM EDT FASTING:YES FASTING: YES us Supriya MONTE LAB BLOOD ORDERABLES Final Result [employer] [address] [place] [phone] from Last 3 Months or Most Recently Relevant to Health Maintenance Insurance [facility] Care Teams Global Marketing Specialist Relationship Specialty Start Date End Date Supriya Asif PA [address] [place] [address] PCP - General
--- OUTSIDE RECORDS SUMMARY | 2025-02-11 20:01 | XMS_ITS | Clinical Summary ---
Author Organization [facility] [place] [address] Care Team Providers Care Embedded Software Programmer Name Role Phone Renzo Yeh MD Primary [...] age to complete this topic Care Teams Embedded Software Programmer Relationship Specialty Start Date End Date Renzo Yeh MD 9 [facility] 2 [place] [address] PCP - General Internal Medicine 07/11/17
--- OUTSIDE RECORDS SUMMARY | 2025-02-11 20:01 | XMS_ITS | Clinical Summary ---
Author Organization [facility] Address [address] [place] [address] Care Team Providers Care Chief Innovation Officer Name Role Phone Renzo Yeh MD Primary [...] age to complete this topic Care Teams Chief Innovation Officer Relationship Specialty Start Date End Date Renzo Yeh MD PCP - General Internal Medicine 07/11/17
--- OUTSIDE RECORDS SUMMARY | 2025-02-11 20:01 | XMS_ITS | Patient Health Record ---
Author Organization [facility] Address [address] [place] [phone] Care Team Providers Care Nurse Practitioner Manager Name Role Phone LENORE WARE Primary Care Provider MOODY Sharpe Unavailable [phone] Allergies Allergen (clinical drug ingredient) Drug/Non Drug [...] Date Coverage End Date AETNA [address] [place], [place] [id number] RUTHIE PIERRE Self - patient is the insured Medical (General) History Medical History History ICD Code High blood pressure Surgical History Surgery Date(Month/Year) None
--- OUTSIDE RECORDS SUMMARY | 2025-02-11 20:02 | XMS_ITS | Clinical Summary ---
Author Organization [facility] Address [address] [place] [address] Care Team Providers Care Pharmacy Clerk Name Role Phone Demarcus Aden MD Primary Care Provider [phone] Allergies Active Allergy Reactions Criticality Noted Date Comments Penicillins 08/18/2020 Medications Omeprazole (PriLOSEC OTC) 20 MG EC tablet Take 1 tablet 30-60 minutes before breakfast 30 3 1 Active famotidine (Famotidine Maximum Strength) 20 MG tablet TAKE 1 TABLET DAILY DIRECTED. 30 3 1 Active Active Problems Problem Noted Date Diagnosed Date Dyspnea 08/21/2020 Overview (05/04/2023): Impression - [id number]: - Head and neck exam including laryngoscopy essentially unremarkable with exception of signs of LPR. No paradoxical vocal fold motion noted on exam. I have a low suspicion of PVFMD as the source of his dyspnea. We did discuss that LPR can exacerbate underlying asthma/pulmonary issues.; - See LPR plan; - Recommended he [facility] back to his PCP if he has not had recent EKG/cardiac work-up since onset of his symptoms. Impression - [id number]: - Head and neck exam including laryngoscopy essentially unremarkable with exception of signs of LPR. No paradoxical vocal fold motion noted on exam. I have a low suspicion of PVFMD as the source of his dyspnea given his symptom profile. We did discuss that LPR can exacerbate underlying asthma/pulmonary issues.; - See LPR plan; - Recommended he [facility] back to his PCP if he has not had recent EKG/cardiac work-up since onset of his symptoms. Laryngopharyngeal reflux 08/18/2020 Overview (05/04/2023): Impression - [id number]: - I had an extensive discussion with the patient regarding their laryngeal examination and findings which are suggestive of laryngopharyngeal reflux. We discussed lifestyle modifications including dietary changes, weight loss and medical management. Patient provided with handout.; - Trial of Omeprazole 20 mg once daily and Famotidine 20 mg at bedtime to see if this improves his breathing symptoms. Impression - [id number]: - I had an extensive discussion with [...] 2024-2 6 season) 2024 Influenza (#1) 2024 RSV (1 - 1-dose 75+ series) 2041 HPV Vaccine (No Doses Required) Completed Hep A Aged Out No longer eligi ble based on patient's age to complete this topic Hib Aged Out No longer eligi ble based on patient's age to complete this topic Meningococcal ACWY Aged Out No longer eligible based on patient's age to complete this topic Care Teams Pharmacy Clerk Relationship Specialty Start Date End Date Demarcus Aden MD [address] [place] [address] PCP - General 11/04/22
--- OUTSIDE RECORDS SUMMARY | 2025-02-11 20:02 | XMS_ITS | Encounter Summary ---
Author Organization [facility] Address [address] [place] [address] Care Team Providers Care Development Manager Name Role Phone Supriya Asif Primary Care Provider +1- [phone] Encounter Details Date Type Department Care Team (Late st Contact Info) Description 04/19/2019 Scanned Document [facility] NEUROSURGERY SCAN Neurosurgery, Scan Social History [...] on filedocumented in this encounter Care Teams Development Manager Relationship Specialty Start Date End Date Supriya Asif PA [address] [place] [address] PCP - General documented as of this encounter
[2025-02-12 06:28] LABS: Lyme Abs Screen <0.90 index
== END 2025-02-11 13:41 | disposition home or self-care (01) ==
LOC: HO.WFDLDS 13:40
PROVIDERS: Visit Provider Family Medicine
DX: R61 Generalized hyperhidrosis (principal)
CPT/HCPCS: 36415; 86617; 86618

== ENCOUNTER 2025-02-23 09:55 | Outpatient (AMB) | payer BC, SELFPAY ==
--- NOTE | 2025-02-23 09:58 | MHC.OFFVIS ---
Vital Signs 02/23/25 09:59 Height 5 ft 7 in Weight 176 lb BMI 27.6 BP 133/74 Blood Pressure Location Lt brachial Position Sitting Pulse 80 Intake Visit Reasons: s/p [place]ofi Intake Note: Patient follow up for acid refluyx, lab and EGD/Colonoscopy results. Patient denies any GI issues. Perinatal Director Required: No Accompanied by: Self / Same As Patient Allergies Penicillins Allergy (Intermediate, Verified 02/23/25 09:58) Unknown HPI HPI s/p [place] Kofi: Details: Patient is a 59-year-old male with PMH of hypertension and hyperlipidemia. F/u on recent EGD and colonoscopy performed for reflux sxs and CRC screening. Since last seen, pt notes that reflux sxs are infrequent and well controlled. Has been on omeprazole daily for ~1-2 wks along with previous PRN antacid use. No adverse effects reported from acid suppression. Completed abx for diverticulitis after last episode (hospitalized in May; recurrence tx with Cipro and Flagyl post-colonoscopy). Reports resolution of prior L sided abd discomfort, with only rare, mild twinges, possibly attributed more to known L-sided hernia than GI source. No further fevers, chills, or GI upset. Bowel habits stable, regular. Endorses improved energy, denies hematochezia, melena. Reports following dietary guidance and making efforts at improved hydration. No difficulty adhering to current treatment No interim hospitalizations or urgent care visits. plan. [facility] Medical History (Updated 02/23/25 @ 10:44 by Lyubov Dobson CNP) Internal hemorrhoids Tubular adenoma of colon Acid reflux Change in stool Dislocated finger Testicular pain, left Breathing problem Sciatic leg pain Arthritis Back injury Low testosterone High blood pressure High blood cholesterol Surgical History Hx of colonoscopy History of esophagogastroduodenoscopy (EGD) History of vasectomy History of hernia repair Family History Father High blood pressure High cholesterol Prostate cancer Mother High blood pressure Brother High blood pressure High cholesterol Sister High blood pressure High cholesterol Social History Housing: House Are you a primary district manager primary care sales to a significant other at home: No Do you presently have visiting nurse or other home services: No Patient Tobacco Use Status: Former Tobacco user e-Cigarette/Vaping Use: Never Used Second Hand Smoke Exposure: No Substance Use Type: Marijuana service: No Current occupational status: retired Current occupational exposures/hazards: No Cognitive needs: No Hearing needs: No Vision needs: Yes Review of Systems Const Reports as per HPI ENT Reports as per HPI Card Reports as per HPI Resp Reports as per HPI GI Reports as per HPI Reports as per HPI Physical Exam Vital Signs: Last Vital Signs Pulse 80 02/23/25 09:59 BP 133/74 02/23/25 09:59 BMI result Body Mass Index 27.6 Const General: healthy appearing, no acute distress and well developed Nutritional Appearance: average body habitus Orientation/consciousness: patient oriented x3 HEENT Head: Yes normal to inspection, Yes normocephalic and Yes atraumatic Face and sinus: Yes normal facial exam Eyes General: appearance normal, both eyes and all related structures Neck Neck: Yes normal visual inspection Resp Effort & Inspection: normal respiratory effort, able to speak in complete sentences, no tracheal deviation and symmetric chest movement Cardio Jugular venous distension: no JVD Neuro General: patient oriented x3 Gait exam (Neuro): Normal gait present Psych Appearance: grossly normal Mental Status: mental status grossly normal Speech and movement: Normal speech and movement present Affect: normal affect Attitude: cooperative Thought process: Normal thought process present Thought content: Normal thought content present Insight: Good insight present (Psych) Judgement: Good judgement present (Psych) Results Reviewed Results Reviewed: Operative Note Date of Service: 02/10/25 Narrative: Procedure: Upper endoscopy and colonoscopy Indication: GERD, Hx of diverticulitis Endoscopist: Temi Kirby MD Anesthesia Provider: Dr Chiquis Noriega Anesthesia type: MAC Instrument: [id number]-H190 and PCF-[id number] EGD Procedure: The procedure, indications, preparation and potential complications were reviewed with the patient, who indicated understanding and gave written informed consent to proceed. The endoscope was introduced through the mouth, and advanced to the 2nd part of the duodenum. The mucosa was carefully examined on slow withdrawal of the endoscope. The patient tolerated the procedure well. There were no immediate complications. EGD Findings: Esophagus: Linear erosions with erythema measuring 10 mm noted at GE junction. The erosions did not cross the tops of mucosal folds. The Z-line was at 42 cm. Stomach: Normal gastric mucosa. Retroflexion was performed in the cardia. Random cold forceps biopsies were taken from the stomach. Duodenum: Erythema and edema of the duodenal bulb. Remaining mucosa normal to extent examined. Cold forceps biopsies were taken from the duodenal bulb and 2nd portion of the duodenum to rule out celiac sprue. Colonoscopy Procedure: The patient was then turned for the colonoscopy. A digital rectal exam was performed which was abnormal for external hemorrhoids. A distal attachment cap was affixed to the tip of the scope and the colonoscope was then inserted through the anus and advanced through the colon and advanced to the cecum at 75 cm and terminal ileum. Appendiceal orifice and ileocecal valve were identified. Mucosa was carefully examined under high definition white light as the instrument was slowly withdrawn in a retrograde panoramic fashion. Retroflexion was performed in rectum. The procedure was not difficult. The quality of the prep was BBPS: 3+3+2 = adequate Withdrawal time 8 minutes Limitations: No limitations Findings: Mucosa: Focal erythema and edema in the proximal sigmoid colon likely from acute diverticulitis. Remaining mucosa normal to cecum and terminal ileum. Protruding lesions: 1 sessile polyp of size 8 mm in descending colon. Cold snare polypectomy was performed. The polyp was completely removed and retrieved. Medium internal hemorrhoids without stigmata of recent bleeding. Excavated lesions: Getl-pr-nddvauly diverticulosis in sigmoid colon, with likely acute diverticulitis as above. Impression: 1. Grade B esophagitis 2. Normal stomach (biopsy) 3. Duodenitis (biopsy) 4. Possible acute diveritculitis 5. Total 1 polyp removed 6. Internal and external hemorrhoids Recommendations: Follow-up path results Avoid NSAIDs H Pylori treatment if biopsies + Start omeprazole 20 mg once daily Start cipro 500 BID and flagyl 500 TID x 5 days Repeat colonoscopy for CRC screening in 5 years. PATHOLOGY: Collected: 02/10/25 Location: [facility] Received: 02/10/25 Diagnosis A. Duodenum, biopsy: Chronic inactive duodenitis. B. Stomach, random, biopsy: Antral-type and oxyntic mucosa with mild chronic inactive inflammation; no Helicobacter organisms seen. C. Colon, descending, polypectomy: Fragments of tubular adenoma; negative for high-grade dysplasia or carcinoma. Clinical History Pre-Op Dx: GERD, history of diverticulosis Post-Op Dx: Grade B esophagitis, duodenitis, external hemorrhoids, colon polyp Assessment & Plan Assessment & Plan (1) Acid reflux: Comment: 02/10/25 EGD -Grade B esophagitis, Normal stomach , Duodenitis Code(s): K21.9 - Gastro-esophageal reflux disease without esophagitis Category: Medical Qualifiers: Esophagitis presence: esophagitis presence not specified Qualified Code(s): K21.9 - Gastro-esophageal reflux disease without esophagitis Plan: Symptom improvement but objective evidence of mucosal irritation; short-term PPI justified to ensure resolution; no long-term PPI indicated. Additional Testing: None planned unless new or worsening upper GI sxs. Medications: Continue omeprazole daily for total 8 wks from initiation (post-procedure ~02-11-2025), then discontinue and reassess need for ongoing acid suppression; TUMS PRN. - Monitor for potential GI, neuro, or bone side effects (low risk for short duration). Lifestyle Recommendations: Continue behavioral modifications?avoid triggers (alcohol, caffeine, spicy/fatty foods, overeating, late meals), remain upright 2 hrs post-prandial, optimize hydration. Follow-Up Plan: RTC 8-12 wks after PPI initiation (approx. end Mar 2025)?reassess sxs, consider PPI D/C if stable. (2) Diverticulitis: Code(s): K57.92 - Diverticulitis of intestine, part unspecified, without perforation or abscess without bleeding Category: Medical Plan: Stable?post-antibiotic course, sxs resolved, regular BM, no recurrence of L side pain. Pt education on prodromal symptoms and self-management provided. Additional Testing: None required unless new symptoms/flaring. Medications: None active for diverticulitis. Lifestyle Recommendations: Maintain high fiber diet, adequate fluids, bowel regularity. Broaden diet as tolerated; no evidence for restriction of nuts, seeds, corn. Probiotic/fermented foods encouraged; minimize processed/sugar-laden supplements. Referrals / Coordination: Call gastro or PCP at onset of new flare for assessment/initiation of tx protocols. Surgical consult pending for hernia (not GI-related). Follow-Up Plan: Routine surveillance; repeat colonoscopy in 5 yrs unless earlier recurrence of complicated diverticulitis, significant change in sxs, or per individualized schedule. (3) Tubular adenoma of colon: Comment: 02/10/25 colonoscopy complete adequate prep-8 mm TA (descending), Dyby-js-tzqgeinn diverticulosis (sigmoid colon) with suspected acute diverticulitis (proximal sigmoid) treated with Cipro and Flagyl; Medium internal hemorrhoids. Recommendations for repeat 5 years. Code(s): D12.6 - Benign neoplasm of colon, unspecified Category: Medical Plan: Complete polypectomy with surveillance interval reset. Additional Testing: None until next scheduled colonoscopy. Medications: None. Lifestyle Recommendations: CRC risk reduction through diet, exercise, and avoiding tobacco/alcohol excess. Follow-Up Plan: Next colonoscopy in 5 yrs unless earlier indicated by interval sxs. (4) Internal hemorrhoids: Code(s): K64.8 - Other hemorrhoids Category: Medical Plan: Stable?asymptomatic, incidental finding. Additional Testing: None. Medications: None. Lifestyle Recommendations: Maintain soft/regular stools with fiber/fluids to minimize straining. Follow-Up Plan: Symptomatic care if future bleeding/pain. Plan Follow-up 2 months or sooner as needed Time: I spent a total of 33 minutes on the date of encounter which includes: Preparing to see the patient (reviewed previous documentation, test results and medical history) Performing a medically appropriate exam and/or evaluation Ordering medications, tests, and procedures Documenting clinical information in the health record Coding Level of Care Code Established Pt Est Pt Level 4 (74781) Patient Type Established Diagnoses Gastroesophageal reflux disease, unspecified whether esophagitis present K21.9 Esophagitis presence: esophagitis presence not specified Diverticulitis K57.92 Tubular adenoma of colon D12.6 Internal hemorrhoids K64.8
[2025-02-23 09:59] VITALS: BP 133/74; PULSE 80; BMI 27.6
--- OUTSIDE RECORDS SUMMARY | 2025-02-23 11:34 | XMS_ITS | Clinical Summary ---
Author Organization [facility] [address] Care Team Providers Care Associate Professor Of Economics Name Role Phone Renzo Yeh MD Primary Care Provider [phone] Social History Tobacco Use Types Packs/Day Years [...] age to complete this topic Care Teams Associate Professor Of Economics Relationship Specialty Start Date End Date Renzo Yeh MD [address] [facility] [address] [place] [address] PCP - General Internal Medicine 07/11/17
--- OUTSIDE RECORDS SUMMARY | 2025-02-23 11:34 | XMS_ITS | Clinical Summary ---
Author Organization [facility] Address [address] [place] [address] Care Team Providers Care Fellmongering Machine Operator Name Role Phone Demarcus Aden MD Primary Care Provider [phone] Allergies Active Allergy Reactions Criticality Noted Date Comments Penicillins 08/18/2020 Medications Omeprazole (PriLOSEC OTC) 20 MG EC tablet Take 1 tablet 30-60 minutes before breakfast 30 3 1 Active famotidine (Famotidine Maximum Strength) 20 MG tablet TAKE 1 TABLET DAILY DIRECTED. 30 3 1 Active Active Problems Problem Noted Date Diagnosed Date Dyspnea 08/21/2020 Overview (05/04/2023): Impression - [id number]: - Head and neck exam including laryngoscopy essentially unremarkable with exception of signs of LPR. No paradoxical vocal fold motion noted on exam. I have a low suspicion of PVFMD as the source of his dyspnea. We did discuss that LPR can exacerbate underlying asthma/pulmonary issues.; - See LPR plan; - Recommended he [place] back to his PCP if he has not had recent EKG/cardiac work-up since onset of his symptoms. Impression - [id number]: - Head and neck exam including laryngoscopy essentially unremarkable with exception of signs of LPR. No paradoxical vocal fold motion noted on exam. I have a low suspicion of PVFMD as the source of his dyspnea given his symptom profile. We did discuss that LPR can exacerbate underlying asthma/pulmonary issues.; - See LPR plan; - Recommended he [place] back to his PCP if he has not had recent EKG/cardiac work-up since onset of his symptoms. Laryngopharyngeal reflux 08/18/2020 Overview (05/04/2023): Impression - [id number]: - I had an extensive discussion with the patient regarding their laryngeal examination and findings which are suggestive of laryngopharyngeal reflux. We discussed lifestyle modifications including dietary changes, weight loss and medical management. Patient provided with handout.; - Trial of Omeprazole 20 mg once daily and Famotidine 20 mg at bedtime to see if this improves his breathing symptoms. Impression - [id number]: - I had an extensive discussion with [...] age to complete this topic Care Teams Fellmongering Machine Operator Relationship Specialty Start Date End Date Demarcus Aden MD [address] [place] [address] PCP - General 11/04/22
--- OUTSIDE RECORDS SUMMARY | 2025-02-23 11:34 | XMS_ITS | Encounter Summary ---
Author Organization [facility] Address [address] [place] [id number] Care Team Providers Care Gray Mixing Operator Name Role Phone Supriya Asif Primary Care Provider [phone] Encounter Details Date Type Department Care Team (Late st Contact Info) Description 04/19/2019 Scanned Document [facility] NEUROSURGERY SCAN Neurosurgery, Scan Social History [...] on filedocumented in this encounter Care Teams Gray Mixing Operator Relationship Specialty Start Date End Date Supriya Asif PA [address] [place] [address] PCP - General documented as of this encounter
--- OUTSIDE RECORDS SUMMARY | 2025-02-23 11:34 | XMS_ITS | Encounter Summary ---
Author Organization [facility] Address [address] [place] [address] Care Team Providers Care Founding Partner Name Role Phone Supriya Asif Primary Care Provider [phone] Encounter Details Date Type Department Care Team (Late st Contact Info) Description 11/19/2018 Scanned Document [facility] NEUROSURGERY SCAN Neurosurgery, Scan Social History [...] on filedocumented in this encounter Care Teams Founding Partner Relationship Specialty Start Date End Date Supriya Asif PA [address] [place] [address] PCP - General documented as of this encounter
--- OUTSIDE RECORDS SUMMARY | 2025-02-23 11:34 | XMS_ITS | Clinical Summary ---
Author Organization [facility] Address [address] [place] [address] Care Team Providers Care Long Chain Dyeing Machine Operator Name Role Phone Supriya Asif Primary Care Provider [phone] Allergies Active Allergy Reactions Criticality Noted Date [...] Ag/Ab, 4th Gen NON-REACT ESTEPHANIE NON-REACT ESTEPHANIE [facility] Comment: HIV-1 antigen and HIV-1/HIV-2 antibodies were [...] purpose. For additional information please refer to http://education.Tabtor/faq/UZF883 (This link is being provided for informational/ educational purposes only.) The performance of this assay has not been clinically validated in patients less than 2 years old. 06/17/2022 9:56 AM EDT 06/17/2022 9:59 AM EDT [facility] - 06/17/2022 10:46 PM EDT FASTING:YES FASTING: YES us Supriya MONTE LAB BLOOD ORDERABLES Final Result [facility] [address] [place] [phone] * HEPATITIS C VIRUS (HCV) ANTIBODY (06/17/2022 9:56 AM EDT) Hepatitis C Antibody NON-REACT ESTEPHANIE NON-REACT ESTEPHANIE [facility] Hepatitis C Antibody (s/co) <0.02 <1.00 [facility] Comment: HCV antibody was non-reactive. There is no laboratory evidence of HCV infection. In most cases, no further action is required. However, if recent HCV exposure is suspected, a test for HCV RNA (test code 01335) is suggested. For additional information please refer to http://education.Ikro.Fluid Stone/faq/DIK45a3 (This link is being provided for informational/ educational purposes only.) 06/17/2022 9:56 AM EDT 06/17/2022 9:59 AM EDT Narrative [facility] - 06/17/2022 10:46 PM EDT FASTING:YES FASTING: YES us Supriya MONTE LAB BLOOD ORDERABLES Final Result [facility] [address] [place] [phone] from Last 3 Months or Most Recently Relevant to Health Maintenance Insurance [facility] Care Teams Long Chain Dyeing Machine Operator Relationship Specialty Start Date End Date Supriya Asif PA [address] [place] [address] PCP - General
--- OUTSIDE RECORDS SUMMARY | 2025-02-23 11:34 | XMS_ITS | Clinical Summary ---
Author Organization [facility] Address [address] [place] [address] Care Team Providers Care Fingernail Former Name Role Phone Renzo Yeh MD Primary [...] age to complete this topic Care Teams Fingernail Former Relationship Specialty Start Date End Date Renzo Yeh MD PCP - General Internal Medicine 07/11/17
== END 2025-02-23 10:37 | disposition home or self-care (01) ==
LOC: HO.HGI 09:56
PROVIDERS: PCP Family Medicine; Visit Provider Nurse Practitioner Family
DX: K21.9 Gastro-esophageal reflux disease without esophagitis (principal); K57.92 Diverticulitis of intestine, part unspecified, without perforation or abscess without bleeding; D12.6 Benign neoplasm of colon, unspecified; K64.8 Other hemorrhoids
CPT/HCPCS: 99214